=== PATIENT | male | born 1940 | race Caucasian/White ===

== ENCOUNTER 2019-01-05 06:00 | Outpatient (RCR) | payer MEDICARE, SELFPAY | END 2019-02-04 00:01 | LOC: SPT 06:00 | PROVIDERS: Family Provider Family Medicine; Visit Provider Orthopaedic Surgery | DX: Z47.89 Encounter for other orthopedic aftercare (principal) | CPT/HCPCS: 97110 ×9; 97112 ×4; 97116; 97140 ==

== ENCOUNTER 2019-02-07 13:03 | Outpatient (RCR) | payer MEDICARE, SELFPAY | END 2019-03-07 23:59 | disposition home or self-care (01) | LOC: SPT 13:03 | PROVIDERS: Family Provider Family Medicine; PCP Family Medicine; Visit Provider Orthopaedic Surgery | DX: M89.8X5 Other specified disorders of bone, thigh (principal) | CPT/HCPCS: 97110; 97112; 97116 ==

== ENCOUNTER 2019-02-12 13:28 | Outpatient (CLI) | payer MEDICARE, SELFPAY ==
--- NOTE | 2019-02-12 13:38 | MR_ITS ---
WS: [id number] MRI RIGHT SHOULDER NONCONTRAST TECHNIQUE: Sagittal T2, coronal T1, T2 and proton density imaging. Axial gradient PDE imaging. CLINICAL INFORMATION: CHRONIC RT SHOULDER PAIN COMPARISON: None. FINDINGS: Moderate degenerative arthritis at the AC joint with mild downsloping of the acromion. Slight subacro mial spurring. Trace subacromial/subdeltoid fluid. Slight impingement on the distal supraspinatus wit h tendinopathy in the supraspinatus. Intrasubstance tear involving the distal supraspinatus. Small un dersurface tear at the insertion. No tendon retraction. Infraspinatus is intact. Normal teres minor. Chronic atrophy of the subscapularis muscle belly with p artial intrasubstance tear and tendinopathy involving the subscapularis tendon. Biceps tendon is not visualized in the bicipital groove proximally. Presumed chronic tear of the long head of the biceps t endon with atrophy. Long head of biceps is not visualized at the biceps labral anchor. Small effusion subcoracoid bursa. MR/MR shoulder RT wo con* [id number] IMPRESSION: 1. Partial intrasubstance tear involving the distal supraspinatus with chronic thinning and tendinopathy. Small undersurface tear at the supraspinatus insert ion. 2. Infraspinatus and teres minor are normal. 3. Chronic appearing atrophy involving subscapularis muscle belly with thinnin g and partial intrasubstance tear of the distal tendon. 4. Presumed chronic tear involving the long head of the biceps tendon which is absent in the bicipital groove proximally and biceps labral junction. 5. Moderate degenerative arthritis at the AC joint with mild downsloping of th e acromion. Small amount of subacromial/subdeltoid fluid.
== END 2019-02-12 13:29 | disposition home or self-care (01) ==
LOC: RADSHAW 13:36
PROVIDERS: Family Provider Family Medicine; PCP Family Medicine; Visit Provider Anesthesiology
DX: S46.111A Strain of muscle, fascia and tendon of long head of biceps, right arm, initial encounter (principal); X58.XXXA Exposure to other specified factors, initial encounter; M25.511 Pain in right shoulder; M19.011 Primary osteoarthritis, right shoulder
CPT/HCPCS: 73221

== ENCOUNTER 2019-02-14 06:00 | Outpatient (RCR) | payer MEDICARE, SELFPAY | END 2019-03-07 23:59 | disposition home or self-care (01) | LOC: SPT 06:00 | PROVIDERS: Family Provider Family Medicine; PCP Family Medicine; Referring Provider Family Medicine; Visit Provider Family Medicine | DX: G89.29 Other chronic pain (principal); M25.512 Pain in left shoulder; M25.511 Pain in right shoulder | CPT/HCPCS: 97110; 97161 ==

== ENCOUNTER 2019-03-08 06:00 | Outpatient (RCR) | payer MEDICARE, SELFPAY | END 2019-04-05 23:59 | disposition home or self-care (01) | LOC: SPT 06:00 | PROVIDERS: Family Provider Family Medicine; PCP Family Medicine; Visit Provider Orthopaedic Surgery | DX: Z47.89 Encounter for other orthopedic aftercare (principal); Z98.890 Other specified postprocedural states | CPT/HCPCS: 97110; 97116; 97164 ==

== ENCOUNTER 2019-03-09 06:00 | Outpatient (RCR) | payer MEDICARE, SELFPAY | END 2019-04-05 23:59 | disposition home or self-care (01) | LOC: SPT 06:00 | PROVIDERS: Family Provider Family Medicine; PCP Family Medicine; Referring Provider Family Medicine; Visit Provider Family Medicine | DX: G89.29 Other chronic pain (principal); M25.512 Pain in left shoulder | CPT/HCPCS: 97110 ==

== ENCOUNTER 2019-03-12 16:14 | Outpatient (CLI) | payer MEDICARE, SELFPAY ==
--- NOTE | 2019-03-12 | XR_ITS ---
WS: [id number] CHEST 2 VIEWS HISTORY: HEMOPTYSIS COMPARISON: 07/06/2006 Lungs: Mild flattening of the hemidiaphragms. No pneumonia. Normal vasculature. Cardiac size: Normal. Mediastinum/Aorta: Mild atherosclerosis aorta. Bones: Prior anterior cervical fusion. Prior fusion hardware in the lumbar spine. XR/XR chest 2V* [id number] IMPRESSION: 1. No pneumonia. 2. Mild atherosclerosis aorta.
== END 2019-03-12 16:15 | disposition home or self-care (01) ==
LOC: RAD 16:17
PROVIDERS: Family Provider Family Medicine; PCP Family Medicine; Visit Provider Family Medicine
DX: R04.2 Hemoptysis (principal); I70.0 Atherosclerosis of aorta
CPT/HCPCS: 71046

== ENCOUNTER → 2019-03-14 15:13 | Outpatient (BNVA) | payer MEDICARE, SELFPAY | PROVIDERS: Family Provider Family Medicine; PCP Family Medicine; Visit Provider Anesthesiology | DX: G89.29 Other chronic pain (principal); M54.5 Low back pain; M79.652 Pain in left thigh; M25.511 Pain in right shoulder; M25.512 Pain in left shoulder; Z79.891 Long term (current) use of opiate analgesic | CPT/HCPCS: 99214 ==

== ENCOUNTER 2019-04-06 06:00 | Outpatient (RCR) | payer MEDICARE, SELFPAY | END 2019-05-06 23:59 | disposition home or self-care (01) | LOC: SPT 06:00 | PROVIDERS: Family Provider Family Medicine; PCP Family Medicine; Referring Provider Family Medicine; Visit Provider Family Medicine | DX: G89.29 Other chronic pain (principal); M25.511 Pain in right shoulder | CPT/HCPCS: 97110 ==

== ENCOUNTER 2019-04-06 06:00 | Outpatient (RCR) | payer MEDICARE, SELFPAY | END 2019-05-06 23:59 | disposition home or self-care (01) | LOC: SPT 06:00 | PROVIDERS: Family Provider Family Medicine; PCP Family Medicine; Visit Provider Orthopaedic Surgery | DX: G89.29 Other chronic pain (principal); M25.511 Pain in right shoulder | CPT/HCPCS: 97110; 97116 ==

== ENCOUNTER 2019-04-07 16:52 | Outpatient (CLI) | payer MEDICARE, SELFPAY ==
--- NOTE | 2019-04-07 17:31 | XR_ITS ---
WS: [id number] XR cervical spine 3V* [id number] REASON FOR EXAM: NECK PAIIN FINDINGS: Degenerated changes of the joints of Luschka. Anterolisthesis C4 on C5. There is degenerate disc changes C5-6, C6-7. There is a large spur off the C5 vertebra posteriorly. C5-C6-C7 now shows an anterior plate stabilizing the neck. There is advanced disc changes now seen at the C3-C4 disc space. XR/XR cervical spine 3V* [id number] IMPRESSION: Anterior fusion C5-C6-C7 appears to be stable. There is stenosis and disc changes C3-4 progressive since the previous exam of March 04, 2004.
== END 2019-04-07 16:53 | disposition home or self-care (01) ==
LOC: RAD 16:56
PROVIDERS: Family Provider Family Medicine; PCP Family Medicine; Visit Provider Family Medicine
DX: M48.02 Spinal stenosis, cervical region (principal); M54.2 Cervicalgia; G89.29 Other chronic pain; Z98.1 Arthrodesis status
CPT/HCPCS: 72040

== ENCOUNTER 2019-05-07 06:00 | Outpatient (RCR) | payer MEDICARE, SELFPAY | END 2019-06-05 23:59 | disposition home or self-care (01) | LOC: SPT 06:00 | PROVIDERS: Family Provider Family Medicine; PCP Family Medicine; Referring Provider Family Medicine; Visit Provider Family Medicine | DX: G89.29 Other chronic pain (principal); M25.511 Pain in right shoulder | CPT/HCPCS: 97110 ==

== ENCOUNTER 2019-06-06 06:00 | Outpatient (RCR) | payer MEDICARE, SELFPAY | END 2019-07-06 23:59 | disposition home or self-care (01) | LOC: SPT 06:00 | PROVIDERS: PCP Family Medicine; Referring Provider Family Medicine; Visit Provider Family Medicine | DX: G89.29 Other chronic pain (principal); M25.511 Pain in right shoulder | CPT/HCPCS: 97110 ==

== ENCOUNTER → 2019-07-16 13:29 | Outpatient (BNVA) | payer MEDICARE, SELFPAY | PROVIDERS: PCP Family Medicine; Visit Provider Anesthesiology | DX: G89.29 Other chronic pain (principal); M54.42 Lumbago with sciatica, left side; M25.512 Pain in left shoulder; Z79.891 Long term (current) use of opiate analgesic | CPT/HCPCS: 99214 ==

== ENCOUNTER → 2019-08-04 10:40 | Outpatient (BNVA) | payer MEDICARE, SELFPAY | PROVIDERS: PCP Family Medicine; Visit Provider Urology | DX: N40.1 Benign prostatic hyperplasia with lower urinary tract symptoms (principal); N52.1 Erectile dysfunction due to diseases classified elsewhere | CPT/HCPCS: 81001 ==

== ENCOUNTER → 2019-09-11 08:24 | Outpatient (BNVA) | payer MEDICARE, SELFPAY | PROVIDERS: PCP Family Medicine; Visit Provider Anesthesiology | DX: G89.29 Other chronic pain (principal); M54.42 Lumbago with sciatica, left side; M25.512 Pain in left shoulder; M25.511 Pain in right shoulder; Z79.891 Long term (current) use of opiate analgesic | CPT/HCPCS: 99214 ==

== ENCOUNTER → 2019-10-02 09:54 | Outpatient (BNVA) | payer MEDICARE, SELFPAY | PROVIDERS: PCP Family Medicine; Visit Provider Anesthesiology Pain Medicine | DX: G89.29 Other chronic pain (principal); M54.5 Low back pain; M54.12 Radiculopathy, cervical region; M50.90 Cervical disc disorder, unspecified, unspecified cervical region; M25.512 Pain in left shoulder; M47.812 Spondylosis without myelopathy or radiculopathy, cervical region; M25.511 Pain in right shoulder; M96.1 Postlaminectomy syndrome, not elsewhere classified; Z79.891 Long term (current) use of opiate analgesic; Z98.1 Arthrodesis status | CPT/HCPCS: 99205; 99215 ==

== ENCOUNTER → 2019-10-16 13:04 | Outpatient (BNVA) | payer MEDICARE, SELFPAY | PROVIDERS: PCP Family Medicine; Visit Provider Anesthesiology Pain Medicine | DX: G89.29 Other chronic pain (principal); M54.5 Low back pain; M50.90 Cervical disc disorder, unspecified, unspecified cervical region; M47.812 Spondylosis without myelopathy or radiculopathy, cervical region; M54.12 Radiculopathy, cervical region; M25.511 Pain in right shoulder; M25.512 Pain in left shoulder; M96.1 Postlaminectomy syndrome, not elsewhere classified | CPT/HCPCS: 99213; 99214 ==

== ENCOUNTER 2019-10-23 06:00 | Outpatient (RCR) | payer MEDICARE, SELFPAY | END 2019-11-05 23:59 | disposition home or self-care (01) | LOC: SPT 06:00 | PROVIDERS: PCP Family Medicine; Referring Provider Student in an Organized Health Care Education/Training Program; Visit Provider Student in an Organized Health Care Education/Training Program | DX: M75.101 Unspecified rotator cuff tear or rupture of right shoulder, not specified as traumatic (principal); M75.102 Unspecified rotator cuff tear or rupture of left shoulder, not specified as traumatic | CPT/HCPCS: 97161 ==

== ENCOUNTER 2019-10-27 06:00 | Outpatient (RCR) | payer MEDICARE, SELFPAY | END 2019-11-05 23:59 | disposition home or self-care (01) | LOC: SPT 06:00 | PROVIDERS: PCP Family Medicine; Referring Provider Registered Nurse; Visit Provider Registered Nurse | DX: G89.29 Other chronic pain (principal); M54.2 Cervicalgia | CPT/HCPCS: 97110; 97162 ==

== ENCOUNTER 2019-10-28 07:45 | Outpatient (CLI) | payer SELFPAY ==
--- NOTE | 2019-10-28 07:57 | MR_ITS ---
WS: [id number] MRI CERVICAL SPINE with and without contrast. HISTORY: CERVICAL RADICULAR PAIN Multiplanar, multisequence imaging is performed of the cervical spine with and without contrast. COMPARISON: 02/12/2006. Straightening of the normal cervical lordosis. Prior anterior cervical fusion from C5 through C7. Com plete bony fusion across the C5-6 and C6-7 disc spaces. No fractures. No edema. 2 mm retrolisthesis of C3. 2 mm anterolisthesis of C7. There is disc desiccation with osteophytic rid ging most significant at C3-4 and C4-5 and T2-3. Mild progression of degenerative changes since the p rior study. Anterior cervical fusion is new. Signal within the cord is normal. Craniocervical junction is intact. C2-C3: Normal. C3-C4: Osteophytic ridging and annular disc bulging and facet arthritis. Moderate central and bilater al foraminal stenosis. C4-C5: Diffuse osteophytic ridging, C4 anterolisthesis disc bulging. Resulting in severe central and bilateral foraminal stenosis. C5-C6: Osteophyte and hypertrophic bone formation extending into the RIGHT foramen causing moderate R IGHT foraminal stenosis. C6-C7: Mild osteophytic ridging with mild bilateral foraminal narrowing. C7-T1: No significant stenosis. Mild facet joint hypertrophy with only minimal bilateral foraminal na rrowing. No discitis or osteomyelitis. No facet joint enhancement. MR/MR cervical spine wo/w [id number] IMPRESSION: 1. Prior cervical fusion from C5 to C7. 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 2. No acute fracture. 3. Moderate multilevel spondylitic changes. 4. Severe central and bilateral foraminal stenosis at C4-5 and moderate at C3- 4. 5. No discitis or osteomyelitis.
[2019-10-28 08:44] LABS: Blood Urea Nitrogen 26 mg/dL (8-23)
== END 2019-10-28 07:46 | disposition home or self-care (01) ==
PROVIDERS: PCP Family Medicine; Visit Provider Anesthesiology Pain Medicine
DX: M54.12 Radiculopathy, cervical region (principal); Z98.1 Arthrodesis status; M43.22 Fusion of spine, cervical region; M48.02 Spinal stenosis, cervical region
CPT/HCPCS: 72156; 82565; 84520; A9579

== ENCOUNTER → 2019-11-04 14:05 | Outpatient (BNVA) | payer MEDICARE, SELFPAY | PROVIDERS: PCP Family Medicine; Visit Provider Anesthesiology Pain Medicine | DX: G89.29 Other chronic pain (principal); M25.511 Pain in right shoulder; M25.512 Pain in left shoulder; M54.16 Radiculopathy, lumbar region; M50.90 Cervical disc disorder, unspecified, unspecified cervical region; M47.812 Spondylosis without myelopathy or radiculopathy, cervical region; M54.12 Radiculopathy, cervical region; M96.1 Postlaminectomy syndrome, not elsewhere classified; Z98.1 Arthrodesis status | CPT/HCPCS: 20610; J1030; J3490 ==

== ENCOUNTER 2019-11-06 06:00 | Outpatient (RCR) | payer MEDICARE, SELFPAY | END 2019-12-06 23:59 | disposition home or self-care (01) | LOC: SPT 06:00 | PROVIDERS: PCP Family Medicine; Referring Provider Student in an Organized Health Care Education/Training Program; Visit Provider Student in an Organized Health Care Education/Training Program | DX: M54.2 Cervicalgia (principal); G89.29 Other chronic pain; Z98.1 Arthrodesis status | CPT/HCPCS: 97110 ==

== ENCOUNTER 2019-11-12 09:19 | Outpatient (CLI) | payer MEDICARE, SELFPAY ==
--- NOTE | 2019-11-12 09:30 | MR_ITS ---
WS: [id number] MRI LUMBAR SPINE NONCONTRAST TECHNIQUE: Sagittal T1, T2 and STIR imaging. Axial T1 and T2 imaging. CLINICAL INFORMATION: M54.16 Radiculopathy, lumbar region COMPARISON: MRI 1 16,018 FINDINGS: Mild lumbar curve. No acute compression. Slight retrolisthesis L2 on L3. Pedicle screw fixation L2-L5 . Small disc bulges in the lower thoracic spine T10-T11 and T11-T12. Moderate bilateral T10-11 forami nal narrowing. Moderate left T11-12 foraminal narrowing. Pedicle screw fixation L2-L5 with anterior fusion. Decompressive laminectomy defects at these levels. No recurrent central canal stenosis at these levels. Interbody fusion L3-4 and L4-L5. Disc space fabrice rowing worse at L2-3. This is slightly progressed compared to previous. Slight retrolisthesis L2 on L 3. L1-L2: Mild disc bulging with slight effacement of ventral thecal sac. Mild central canal stenosis. I mpingement subarticular recess bilaterally. Moderate left and mild right foraminal narrowing. Moderat e facet arthropathy. L2-L3: Slight retrolisthesis. Laminectomy defects. Mild right to left narrowing of the thecal sac wit h facet arthropathy and ligament flavum hypertrophy. Mild bilateral foraminal narrowing. L3-L4: Prior postoperative changes pedicle screw fixation. Laminectomy defects. Spinal canal and fora men are patent. L4-L5: Postoperative changes pedicle screw fixation with anterior fusion and interbody fusion. Shaun ctomy defects. Spinal canal and foramen are patent. L5-S1: Pedicle screw fixation. Disc osteophytic ridging with slight effacement of ventral thecal sac and slight contact of the traversing S1 nerve roots. Moderate right and mild left foraminal narrowing . Moderate facet arthropathy. Small bilateral renal cysts. Postoperative changes anterior cervical fusion C5-C7. Visualized pelvic bony structures: Normal. Paravertebral soft tissues: Normal. MR/MR lumbar spine wo con* [id number] IMPRESSION: 1. Mild lumbar curve. No acute compression. 2. Prior postoperative changes pedicle screw fixation L2-L5 with laminectomy d efects. Interbody fusion L3-L4 and L4-L5 with anterior fusion L3-L4. 3. Mild central canal stenosis L1-2 due to mild disc bulging with slight retro listhesis. Mild facet arthropathy ligament flavum hypertrophy at this level. Sl ight impingement traversing L2 nerve roots bilaterally. Moderate left L1-2 fora bee narrowing. 4. Mild right to left narrowing of the thecal sac L2-3 due to facet arthropath y and ligament flavum hypertrophy. 5. Small central disc protrusion L5-S1 slightly contacts the traversing S1 ner ve roots. Moderate right L5-S1 foraminal narrowing with impingement on the exit ing right L5 nerve root. 6. Central disc protrusions T10-T11 and T11-T12. Moderate bilateral T10-11 and left T11-T12 foraminal narrowing.
== END 2019-11-12 09:20 | disposition home or self-care (01) ==
PROVIDERS: PCP Family Medicine; Visit Provider Anesthesiology Pain Medicine
DX: M54.16 Radiculopathy, lumbar region (principal); M48.061 Spinal stenosis, lumbar region without neurogenic claudication; M51.27 Other intervertebral disc displacement, lumbosacral region; M51.24 Other intervertebral disc displacement, thoracic region; M47.816 Spondylosis without myelopathy or radiculopathy, lumbar region; M54.12 Radiculopathy, cervical region
CPT/HCPCS: 62321; 72148; J1100

== ENCOUNTER 2019-11-20 09:50 | Outpatient (RCR) | payer MEDICARE, SELFPAY | END 2019-11-26 16:15 | disposition home or self-care (01) | LOC: SPT 09:50 | PROVIDERS: PCP Family Medicine; Referring Provider Registered Nurse; Visit Provider Registered Nurse | DX: M54.2 Cervicalgia (principal); G89.29 Other chronic pain; Z98.1 Arthrodesis status | CPT/HCPCS: 97110 ==

== ENCOUNTER → 2019-11-27 10:36 | Outpatient (BNVA) | payer MEDICARE, SELFPAY | PROVIDERS: PCP Family Medicine; Visit Provider Anesthesiology Pain Medicine | DX: G89.29 Other chronic pain (principal); M47.812 Spondylosis without myelopathy or radiculopathy, cervical region; M54.12 Radiculopathy, cervical region; M50.90 Cervical disc disorder, unspecified, unspecified cervical region; M25.511 Pain in right shoulder; M25.512 Pain in left shoulder; M54.5 Low back pain; M96.1 Postlaminectomy syndrome, not elsewhere classified; Z98.1 Arthrodesis status | CPT/HCPCS: 99214 ==

== ENCOUNTER → 2019-12-03 13:15 | Outpatient (BNVA) | payer MEDICARE, SELFPAY | PROVIDERS: PCP Family Medicine; Visit Provider Anesthesiology Pain Medicine | DX: M54.16 Radiculopathy, lumbar region (principal); G89.29 Other chronic pain | CPT/HCPCS: 64483; J1100; J3490 ==

== ENCOUNTER 2019-12-07 06:00 | Outpatient (RCR) | payer MEDICARE, SELFPAY | END 2019-12-08 23:59 | disposition home or self-care (01) | LOC: SPT 06:00 | PROVIDERS: PCP Family Medicine; Referring Provider Student in an Organized Health Care Education/Training Program; Visit Provider Student in an Organized Health Care Education/Training Program | DX: M54.2 Cervicalgia (principal); G89.29 Other chronic pain; Z98.1 Arthrodesis status | CPT/HCPCS: 97110 ==

== ENCOUNTER → 2019-12-18 11:01 | Outpatient (BNVA) | payer MEDICARE, SELFPAY | PROVIDERS: PCP Family Medicine; Visit Provider Anesthesiology Pain Medicine | DX: G89.29 Other chronic pain (principal); M50.90 Cervical disc disorder, unspecified, unspecified cervical region; M54.12 Radiculopathy, cervical region; M47.812 Spondylosis without myelopathy or radiculopathy, cervical region; M54.5 Low back pain; M25.511 Pain in right shoulder; M25.512 Pain in left shoulder; M96.1 Postlaminectomy syndrome, not elsewhere classified; Z98.1 Arthrodesis status | CPT/HCPCS: 99213 ==

== ENCOUNTER 2019-12-25 06:00 | Outpatient (RCR) | payer MEDICARE, SELFPAY | END 2020-01-05 23:59 | disposition home or self-care (01) | LOC: SPT 06:00 | PROVIDERS: PCP Family Medicine; Visit Provider Orthopaedic Surgery | DX: M75.101 Unspecified rotator cuff tear or rupture of right shoulder, not specified as traumatic (principal) | CPT/HCPCS: 97110; 97162 ==

== ENCOUNTER 2020-01-06 06:00 | Outpatient (RCR) | payer MEDICARE, SELFPAY | END 2020-02-05 23:59 | disposition home or self-care (01) | LOC: SPT 06:00 | PROVIDERS: PCP Family Medicine; Visit Provider Orthopaedic Surgery | DX: M75.101 Unspecified rotator cuff tear or rupture of right shoulder, not specified as traumatic (principal) | CPT/HCPCS: 97110 ==

== ENCOUNTER → 2020-02-12 11:04 | Outpatient (BNVA) | payer MEDICARE, SELFPAY | PROVIDERS: PCP Family Medicine; Visit Provider Anesthesiology Pain Medicine | DX: G89.29 Other chronic pain (principal); M79.18 Myalgia, other site; M54.5 Low back pain; J31.0 Chronic rhinitis; M50.90 Cervical disc disorder, unspecified, unspecified cervical region; M54.12 Radiculopathy, cervical region; M47.812 Spondylosis without myelopathy or radiculopathy, cervical region; M25.512 Pain in left shoulder; M25.511 Pain in right shoulder; M96.1 Postlaminectomy syndrome, not elsewhere classified; Z98.1 Arthrodesis status | CPT/HCPCS: 20553; 99214; J1030; J3490 ==

== ENCOUNTER 2020-02-19 14:58 | Emergency (ER) | payer MEDICARE, SELFPAY ==
[2020-02-19 15:09] VITALS: BP 164/62; PULSE 74; RESP 16; TEMP 35.9; O2SAT 93; BMI 25.0
--- NOTE | 2020-02-19 15:14 | CT_ITS ---
WS: [id number] CT HEAD TECHNIQUE: Noncontrast CT of the head obtained from the skullbase to the vertex. CLINICAL INFORMATION: fall, head injury, and on anticoagulation COMPARISON: None. DLP: 819.[address] scans at [facility] use at least one of these dose optimization techniques: automat ed exposure control; mA and/or kV adjustment per patient size (includes targeted exams where dose is matched to clinical indication); or iterative reconstruction. FINDINGS: No evidence of intracranial hemorrhage or mass effect. Ventricular system and basal cisterns are garcía nt. Mild small vessel changes with moderate parenchymal volume loss. Small chronic infarct left parie erickson lobe with encephalomalacia. This is unchanged since the MRI in 2018. No extra-axial fluid collect ions. No evidence of mass or mass effect. Normal españa-white differentiation. Paranasal sinuses and mastoid air cells are well aerated. .Normal visualized soft tissues. CT/CT head wo con* [id number] IMPRESSION: 1. No evidence of intracranial hemorrhage or mass effect. 2. Mild small vessel changes. Moderate parenchymal volume loss. 3. 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 4. No acute intracranial findings.
--- NOTE | 2020-02-19 15:14 | CT_ITS ---
WS: [id number] CT CERVICAL TRAUMA TECHNIQUE: Noncontrast CT of the cervical spine with coronal and sagittal reformatted images. CLINICAL INFORMATION: fall COMPARISON: None. DLP: 629.[address] scans at [facility] use at least one of these dose optimization techniques: automat ed exposure control; mA and/or kV adjustment per patient size (includes targeted exams where dose is matched to clinical indication); or iterative reconstruction. FINDINGS: Straightening of the normal cervical lordosis. Moderate spondylitic changes. Disc osteophyt e complex worse at C3-C4. Slight anterolisthesis C4 on C5. Postoperative changes anterior cervical fu lizzie and interbody fusion C5-C7. Normal C1-2 articulation. Normal dens. No evidence of acute fracture dislocation. Normal prevertebral soft tissues. Mastoids air cells are well aerated. CT/CT cervical spin wo con* [id number] IMPRESSION: 1. No evidence of acute fracture or dislocation. 2. Straightening of the normal cervical lordosis with prior postoperative vega ges anterior cervical fusion and interbody fusion C5-C7.
[2020-02-19 15:44] LABS: Basophils % 0.5 %; Eosinophils # 0.1 10^3/uL (0.0-0.8); Eosinophils % 1.4 %; Lymphocytes # 1.5 10^3/uL (0.8-4.8); Lymphocytes % 20.2 %; Mean Corpuscular Hemoglobin 31.3 pg (28.0-34.0); Mean Corpuscular Volume 101.2 fL (80-94); Mean Platelet Volume 9.8 fL (7.4-10.4); Monocytes # 0.7 10^3/uL (0.2-0.9); Monocytes % 9.7 %; Neutrophils # 4.97 10^3/uL (1.8-7.7); Neutrophils % 67.3 %; Nucleated Red Blood Cells % 0 %; Platelet Count 201 10^3/cmm (130-400); Red Blood Count 4.15 10^6/uL (4.1-5.3); Red Cell Distribution Width 13.6 % (12.1-15.1); White Blood Count 7.4 10^3/uL (4.0-10.0)
[2020-02-19 16:00] LABS: Alanine Aminotransferase 16 U/L (0-41); Alkaline Phosphatase 63 IU/L (40-130); Anion Gap 12.2 (5-19); Aspartate Amino Transferase 13 U/L (0-40); Blood Urea Nitrogen 20 mg/dL (8-23); Calcium 8.8 mg/dL (8.5-10.5); Carbon Dioxide 27 mmol/L (22-29); Chloride 102 mmol/L (98-107); Globulin 2.5 g/dL (1.3-4.6); Glucose 94 mg/dL (65-115); Osmolality Calculated 286 mOsm/kg (285-295); Potassium 4.2 mmol/L (3.5-5.1); Sodium 137 mmol/L (136-145); Total Bilirubin 0.3 mg/dL (0.15-1.2); Total Protein 6.5 g/dL (6.6-8.7)
[2020-02-19 16:09] LABS: INR 0.93 (0.8-1.2)
--- NOTE | 2020-02-19 17:30 | CTR_ITS ---
PROCEDURE INFORMATION: Exam: CT Abdomen And Pelvis Without Contrast Exam date and time: 02/19/2020 6:07 PM Age: 79 years old Clinical indication: Injury or trauma; Fall; Blunt; Generalized; Prior surgery; Surgery type: Gb, hip, back; Additional info: Fall, hip pain TECHNIQUE: Imaging protocol: Computed tomography of the abdomen and pelvis without contrast. Radiation optimization: All CT scans at this facility use at least one of these dose optimization techniques: automated exposure control; mA and/or kV adjustment per patient size (includes targeted exams where dose is matched to clinical indication); or iterative reconstruction. COMPARISON: No relevant prior studies available. RADIATION DOSE METRICS: Total DLP (mGy-cm): 571.97 FINDINGS: Lungs: There is subsegmental atelectasis in the lung bases. Liver: The liver is normal. Gallbladder and bile ducts: The gallbladder is normal. There is no biliary dilation. Pancreas: The pancreas is unremarkable. Spleen: The spleen is unremarkable. Adrenal glands: The adrenal glands are unremarkable. Kidneys and ureters: The kidneys are unremarkable. No hydronephrosis or stones. No ureteral dilation. Stomach and bowel: The stomach is decompressed, preventing meaningful evaluation of wall thickness. The small bowel is nondilated. The colon is unremarkable. Appendix: The appendix is normal. Intraperitoneal space: There is no free air or significant intraperitoneal free fluid. Vasculature: There is a filter in the inferior vena cava positioned from the level of the renal veins to the bifurcation. There is moderate aortic atherosclerotic disease. Lymph nodes: There is no lymphadenopathy in the retroperitoneum, mesentery, pelvis or inguinal regions. Urinary bladder: The urinary bladder is unremarkable. Reproductive: The prostate and seminal vesicles are unremarkable. Bones/joints: There is intact L2 through L5 posterolateral fusion. There is trace retrolisthesis of L1 on L2. No acute fracture. The bony pelvis is intact. The right hip is unremarkable. 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 There is marked thinning of the overlying medial wall of the acetabulum and a 3.2 cm diameter cystic lesion inferior to the acetabular cup. There is periosteal new bone formation along the proximal left femoral intertrochanteric and subtrochanteric region. There is a 3.5 cm cystic lesion in the greater trochanter. No acute fracture. Soft tissues: The there is marked atrophy of the left iliacus and psoas muscles. There is moderate asymmetric atrophy of the left gluteal muscles. The abdominal wall is intact. CT/CT abdomen pelvis wo con [id number] IMPRESSION: 1. No sign of significant traumatic injury in the abdomen or pelvis. 2. 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 There is no acute fracture. 3. Incidental findings above. Radiation Dose CTDIVOL = (mGy): DLP = 571.97 (mGy-cm)
--- NOTE | 2020-02-19 17:30 | CTR_ITS ---
PROCEDURE INFORMATION: Exam: CT Lumbar Spine Without Contrast Exam date and time: 02/19/2020 6:07 PM Age: 79 years old Clinical indication: Injury or trauma; Fall; Blunt trauma (contusions or hematomas); Prior surgery TECHNIQUE: Imaging protocol: Computed tomography images of the lumbar spine without contrast. Radiation optimization: All CT scans at this facility use at least one of these dose optimization techniques: automated exposure control; mA and/or kV adjustment per patient size (includes targeted exams where dose is matched to clinical indication); or iterative reconstruction. COMPARISON: No relevant prior studies available. RADIATION DOSE METRICS: Total DLP (mGy-cm): 2118.46 FINDINGS: Vertebrae: There is intact posterolateral and interbody fusion from L2 through L5. Hardware is intact. There is no sign of loosening. There is grade 1 retrolisthesis of L1 on L2. Bilateral laminectomy at L4. Left laminectomy at L2. Discs/Spinal canal/Neural foramina: There is marked disc space narrowing and small vertebral osteophytes at L5-S1. There is moderate disc space narrowing at T12-L1 and L1-L2. Moderate spinal canal stenosis is suspected at L1-L2 and L2-L3 although the evaluation is limited by streak artifact. Other bones/joints: The visible portion of the pelvis and sacrum is intact. Soft tissues: Paraspinal soft tissues are unremarkable. Visible intra-abdominal soft tissues are unremarkable. CT/CT lumbar spine wo con* [id number] IMPRESSION: 1. No acute findings. No fracture. 2. 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 Radiation Dose CTDIVOL = (mGy): DLP = 2118.46 (mGy-cm)
[2020-02-19] MEDS: morphine 4 mg/mL SDV 1 mL IM (17:40)
[2020-02-19 17:43] VITALS: BP 140/59
--- NOTE | 2020-02-19 17:49 | ED_ITS ---
HPI - Head Injury General: Chief complaint: Head Injury Stated complaint: FALL, HEAD INJURY Time Seen by Provider: 02/19/20 15:14 Source: patient Mode of arrival: ambulatory Limitations: no limitations History of Present Illness: HPI Narrative: Patient is an 79-year-old gentleman who tripped on the curb while walking today and fell face first on the curb. He sustained a laceration to his left eyebrow area which he said bled a lot. He was able to get the bleeding to stop with pressure. He states that he is on anticoagulation although he is not certain which one it is. He did have some loss of consciousness that he thinks it lasted about 30 seconds. He is back to his baseline. He complains of low back pain as well as pain in his gluteal region when walking. Complaint: head injury and fall Onset (ago): hour(s) (1) Place: outdoors Loss of Consciousness: yes and second(s) (30) Location of injury: frontal Severity: mild Quality: dull Radiation: none Other Injuries: none Associated symptoms: Deny nausea, neck pain or vomiting Review of Systems General: Reports: 10 or more systems reviewed and unremarkable except in HPI and below Const: Denies: fever(s), chills or body aches Eyes: Denies: change in vision or blurry vision ENMT: Denies: throat pain, enlarged tonsils, odynophagia, hoarseness, mouth pain or swelling of lips/tongue Card: Denies: palpitations, irregular heart rhythm, edema or swelling of feet/ankles Resp: Denies: dyspnea, productive cough or non-productive cough GI: Denies: abdominal pain, nausea or vomiting : Denies: flank pain, dysuria, urinary frequency, urinary urgency or urinary hesitancy Musc: Reports: back pain; Denies: neck pain or extremity swelling Skin/Breast: Reports: other (laceration); Denies: rash, pruritus or erythema Neuro: Denies: headache(s), numbness in extremities or weakness in extremities Endo: Denies: polyuria, polydipsia or tired all the time [facility] ED PFSH: Medical History (Reviewed 02/19/20 @ 19:50 by Norberto Silverman MD, [facility]) BPH NOS w ur obs/LUTS Chronic left shoulder pain Chronic low back pain Chronic right shoulder pain Encounter for long-term use of opiate analgesic Erectile dysfunction due to diseases classified elsewhere Hip replacement planned 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 Mother , at age 54 Stroke Other CAD (coronary artery disease) Cancer Lung disease Social History (Reviewed 02/19/20 @ 19:50 by Norberto Silverman MD, [facility]) Smoking and tobacco status: never smoked Alcohol intake: never Marital status: Current occupational status: retired Physical Exam Const: COMMON NORMALS: no acute distress, average body habitus, patient oriented x3, no limitations, healthy appearing, alert and well nourished HENMT: COMMON NORMALS: normocephalic and moist oral mucous membranes HEAD & SCALP: normocephalic and laceration FACE & SINUS: laceration (not bleeding) left above eyebrow Facial laceration size: 5 cm Eye: COMMON NORMALS: Equal, round and reactive pupils present, EOMs intact bilaterally, conjunctivae normal and no scleral icterus CONJUNCTIVA: Yes conjunctivae normal PUPIL: Yes Equal, round and reactive pupils present Neck/C-Spine: COMMON NORMALS: full ROM, supple, no meningeal signs, no JVD and No carotid bruits Chest: COMMONS NORMALS: normal inspection of the chest and normal palpation of entire chest wall Resp: COMMON NORMALS: normal respiratory effort, No retractions, No use of accessory muscles, clear to auscultation bilaterally and percussion normal AUSCULTATION: clear to auscultation bilaterally PERCUSSION: percussion normal Cardio: COMMON NORMALS: no JVD, regular rate, regular rhythm, S1 normal heart sound present, S2 normal heart sound present, No gallops present (Cardio), No clicks present (Cardio), No murmurs present (Cardio), No rub (Cardio) and Peripheral pulses 2+ throughout RATE: regular rate RHYTHM: regular rhythm HEART SOUNDS: S1 normal heart sound present and S2 normal heart sound present PERIPHERAL PULSES: Peripheral pulses 2+ throughout GI: COMMON NORMALS: Normal to inspection, nondistended, normoactive bowel sounds present, Soft to palpation, non-tender, No hepatosplenomegaly present, no masses and no bruits PALPATION: Yes Soft to palpation and Yes No hepatosplenomegaly present Back/Pelvis: LUMBAR SPINE/LOWER BACK: No lumbar spinal tenderness and Yes paraspinal muscle tenderness Extremity: COMMON NORMALS: normal to inspection, full ROM, capillary refill normal, no calf tenderness and no pedal edema Neuro: COMMON NORMALS: patient oriented x3 SENSORIUM/ORIENTATION: Yes alert MENINGEAL SIGNS: Yes no meningeal signs Skin: COMMON NORMALS: no rashes or lesions noted, no wounds, turgor normal, no jaundice, no petechiae and no mottling GENERAL SKIN EXAM: no rashes or lesions noted and turgor normal Course Reevaluation(s): Reevaluation #1: Discussed his lab and imaging findings with him. Negative for acute findings. We will discharge him home on conservative measures. Time: 19:20 Vital Signs: Vital signs: Vital Signs Temperature 96.6 F L 02/19/20 15:09 Pulse Rate 74 02/19/20 15:09 Respiratory Rate 16 02/19/20 15:09 Blood Pressure 140/59 02/19/20 17:43 Pulse Oximetry 93 02/19/20 15:09 MDM - Head Injury MDM Narrative: Medical decision making narrative: 79-year-old male who tripped and fell and sustained a mild closed head injury. Evaluation in the emergency department was negative for acute findings including a negative head CT, C-spine CT, lumbar and abdominal CT. Lab work was unremarkable. He is discharged home on conservative measures. Head injury instructions given to the patient and his Medical Records: Attestation: I reviewed the patient's medical records. Lab Data: Attestation: I reviewed the patient's lab results. Labs: Lab Results 02/19/20 02/19/20 02/19/20 Range/Units 15:32 15:32 15:32 WBC 7.4 (4.0-10.0) 10^3/ uL RBC 4.15 (4.1-5.3) 10^6/u L Hgb 13.0 (11.7-16.6) g/dL Hct 42.0 (42.0-52.0) % MCV 101.2 H (80-94) fL MCH 31.3 (28.0-34.0) pg MCHC 31.0 (30.0-36.0) g/dL RDW 13.6 (12.1-15.1) % Plt Count 201 (130-400) 10^3/c mm MPV 9.8 (7.4-10.4) fL Neut % (Auto) 67.3 % Lymph % (Auto) 20.2 % [place] % (Auto) 9.7 % Eos % (Auto) 1.4 % Baso % (Auto) 0.5 % Neut # (Auto) 4.97 (1.8-7.7) 10^3/u L Lymph # (Auto) 1.5 (0.8-4.8) 10^3/u L [place] # (Auto) 0.7 (0.2-0.9) 10^3/u L Eos # (Auto) 0.1 (0.0-0.8) 10^3/u L Baso # (Auto) 0.0 (0.0-0.1) 10^3/u L Nucleated RBC % (a uto) 0 % Nucleated RBCs # 0.0 /100WBC PT 12.70 (12.1-14.9) SECO NDS INR 0.93 (0.8-1.2) Sodium 137 (136-145) mmol/L Potassium 4.2 (3.5-5.1) mmol/L Chloride 102 (98-107) mmol/L Carbon Dioxide 27 (22-29) mmol/L Anion Gap 12.2 (5-19) BUN 20 (8-23) mg/dL Creatinine 0.7 (0.7-1.2) mg/dL GFR Calculation Not Reportable Glucose 94 (65-115) mg/dL Calculated Osmolal ity 286 (285-295) mOsm/k g Calcium 8.8 (8.5-10.5) mg/dL Total Bilirubin 0.3 (0.15-1.2) mg/dL AST 13 (0-40) U/L ALT 16 (0-41) U/L Alkaline Phosphata se 63 (40-130) IU/L Total Protein 6.5 L (6.6-8.7) g/dL Albumin 4.0 (3.5-5.2) g/dL Globulin 2.5 (1.3-4.6) g/dL Urine Color (Yellow) Urine Appearance (CLEAR) Urine pH (5-7) Ur Specific Gravit y (1.005-1.030) Urine Protein (Negative) Urine Glucose (UA) (Normal) Urine Ketones (Negative) Urine Blood (Negative) Urine Nitrate (Negative) Urine Bilirubin (Negative) Urine Urobilinogen (Negative) mg/dL Ur Leukocyte Martha ase (Negative) Urine RBC (0-2) /hpf Urine WBC (0-5) /hpf Ur Squamous Epith Cells (0-5) /hpf Amorphous Sediment /hpf Urine Bacteria (NONE) /hpf 02/19/20 Range/Units 17:45 WBC (4.0-10.0) 10^3/ uL RBC (4.1-5.3) 10^6/u L Hgb (11.7-16.6) g/dL Hct (42.0-52.0) % MCV (80-94) fL MCH (28.0-34.0) pg MCHC (30.0-36.0) g/dL RDW (12.1-15.1) % Plt Count (130-400) 10^3/c mm MPV (7.4-10.4) fL Neut % (Auto) % Lymph % (Auto) % [place] % (Auto) % Eos % (Auto) % Baso % (Auto) % Neut # (Auto) (1.8-7.7) 10^3/u L Lymph # (Auto) (0.8-4.8) 10^3/u L [place] # (Auto) (0.2-0.9) 10^3/u L Eos # (Auto) (0.0-0.8) 10^3/u L Baso # (Auto) (0.0-0.1) 10^3/u L Nucleated RBC % (a uto) % Nucleated RBCs # /100WBC PT (12.1-14.9) SECO NDS INR (0.8-1.2) Sodium (136-145) mmol/L Potassium (3.5-5.1) mmol/L Chloride (98-107) mmol/L Carbon Dioxide (22-29) mmol/L Anion Gap (5-19) BUN (8-23) mg/dL Creatinine (0.7-1.2) mg/dL GFR Calculation Glucose (65-115) mg/dL Calculated Osmolal ity (285-295) mOsm/k g Calcium (8.5-10.5) mg/dL Total Bilirubin (0.15-1.2) mg/dL AST (0-40) U/L ALT (0-41) U/L Alkaline Phosphata se (40-130) IU/L Total Protein (6.6-8.7) g/dL Albumin (3.5-5.2) g/dL Globulin (1.3-4.6) g/dL Urine Color Yellow (Yellow) Urine Appearance Cloudy (CLEAR) Urine pH 6 (5-7) Ur Specific Gravit y 1.015 (1.005-1.030) Urine Protein Neg (Negative) Urine Glucose (UA) Norm (Normal) Urine Ketones Negative (Negative) Urine Blood Neg (Negative) Urine Nitrate Negative (Negative) Urine Bilirubin Neg (Negative) Urine Urobilinogen Norm (Negative) mg/dL Ur Leukocyte Martha ase Negative (Negative) Urine RBC 5-10 H (0-2) /hpf Urine WBC 10-15 H (0-5) /hpf Ur Squamous Epith Cells 10-15 H (0-5) /hpf Amorphous Sediment 2+ /hpf Urine Bacteria 1+ H (NONE) /hpf Imaging Data^: CT Abd/Pel: Radiologist's impression: [place] [address] CT Scan Report Signed Patient: Bear Carballo #: [id number] : 1940Acct#:[id number] Age/Sex: 79 / MADM Date: 02/19/20 Loc: ERRoom/Bed: Attending Dr: Ordering Provider/Ordering MD: Norberto Silverman MD, [facility] Date of Service: 02/19/20 Procedure(s): CT abdomen pelvis wo con [id number] Accession Number(s): [id number] Report Number: [id number] PROCEDURE INFORMATION: Exam: CT Abdomen And Pelvis Without Contrast Exam date and time: 02/19/2020 6:07 PM Age: 79 years old Clinical indication: Injury or trauma; Fall; Blunt; Generalized; Prior surgery; Surgery type: Gb, hip, back; Additional info: Fall, hip pain TECHNIQUE: Imaging protocol: Computed tomography of the abdomen and pelvis without contrast. Radiation optimization: All CT scans at this facility use at least one of these dose optimization techniques: automated exposure control; mA and/or kV adjustment per patient size (includes targeted exams where dose is matched to clinical indication); or iterative reconstruction. COMPARISON: No relevant prior studies available. RADIATION DOSE METRICS: Total DLP (mGy-cm): 571.97 FINDINGS: Lungs: There is subsegmental atelectasis in the lung bases. Liver: The liver is normal. Gallbladder and bile ducts: The gallbladder is normal. There is no biliary dilation. Pancreas: The pancreas is unremarkable. Spleen: The spleen is unremarkable. Adrenal glands: The adrenal glands are unremarkable. Kidneys and ureters: The kidneys are unremarkable. No hydronephrosis or stones. No ureteral dilation. Stomach and bowel: The stomach is decompressed, preventing meaningful evaluation of wall thickness. The small bowel is nondilated. The colon is unremarkable. Appendix: The appendix is normal. Intraperitoneal space: There is no free air or significant intraperitoneal free fluid. Vasculature: There is a filter in the inferior vena cava positioned from the level of the renal veins to the bifurcation. There is moderate aortic atherosclerotic disease. Lymph nodes: There is no lymphadenopathy in the retroperitoneum, mesentery, pelvis or inguinal regions. Urinary bladder: The urinary bladder is unremarkable. Reproductive: The prostate and seminal vesicles are unremarkable. Bones/joints: There is intact L2 through L5 posterolateral fusion. There is trace retrolisthesis of L1 on L2. No acute fracture. The bony pelvis is intact. The right hip is unremarkable. 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 There is marked thinning of the overlying medial wall of the acetabulum and a 3.2 cm diameter cystic lesion inferior to the acetabular cup. There is periosteal new bone formation along the proximal left femoral intertrochanteric and subtrochanteric region. There is a 3.5 cm cystic lesion in the greater trochanter. No acute fracture. Soft tissues: The there is marked atrophy of the left iliacus and psoas muscles. There is moderate asymmetric atrophy of the left gluteal muscles. The abdominal wall is intact. CT/CT abdomen pelvis wo con [id number] IMPRESSION: 1. No sign of significant traumatic injury in the abdomen or pelvis. 2. 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 There is no acute fracture. 3. Incidental findings above. Radiation Dose CTDIVOL = (mGy): DLP = 571.97 (mGy-cm) Dictated By:Mode Rocha MD Signed By:Mode Rocha Date/Time:02/19/201855 DD/ [address]: Radiologist's impression: [address] [place] [address] CT Scan Report Signed Patient: Bear Carballo #: [id number] : 1940Acct#:[id number] Age/Sex: 79 / MADM Date: 02/19/20 Loc: ERRoom/Bed: Attending Dr: Ordering Provider/Ordering MD: Norberto Silverman MD, [facility] Date of Service: 02/19/20 Procedure(s): CT cervical spin wo con* [id number] Accession Number(s): [id number] Report Number: [id number] WS: [id number] CT CERVICAL TRAUMA TECHNIQUE: Noncontrast CT of the cervical spine with coronal and sagittal reformatted images. CLINICAL INFORMATION: fall COMPARISON: None. DLP: 629.[address] scans at [facility] use at least one of these dose optimization techniques: automated exposure control; mA and/or kV adjustment per patient size (includes targeted exams where dose is matched to clinical indication); or iterative reconstruction. FINDINGS: Straightening of the normal cervical lordosis. Moderate spondylitic changes. Disc osteophyte complex worse at C3-C4. Slight anterolisthesis C4 on C5. Postoperative changes anterior cervical fusion and interbody fusion C5-C7. Normal C1-2 articulation. Normal dens. No evidence of acute fracture dislocation. Normal prevertebral soft tissues. Mastoids air cells are well aerated. CT/CT cervical spin wo con* [id number] IMPRESSION: 1. No evidence of acute fracture or dislocation. 2. Straightening of the normal cervical lordosis with prior postoperative changes anterior cervical fusion and interbody fusion C5-C7. Dictated By:Amadeo Riggins MD Signed By:Amadeo Riggins MDSigned Date/Time:02/19/201636 DD/ [address] [address] [address] Scan Report Signed Patient: Bear Carballo #: [id number] : 1940Acct#:[id number] Age/Sex: 79 / MADM Date: 02/19/20 Loc: ERRoom/Bed: Attending Dr: Ordering Provider/Ordering MD: Norberto Silverman MD, [facility] Date of Service: 02/19/20 Procedure(s): CT lumbar spine wo con* [id number] Accession Number(s): [id number] Report Number: [id number] PROCEDURE INFORMATION: Exam: CT Lumbar Spine Without Contrast Exam date and time: 02/19/2020 6:07 PM Age: 79 years old Clinical indication: Injury or trauma; Fall; Blunt trauma (contusions or hematomas); Prior surgery TECHNIQUE: Imaging protocol: Computed tomography images of the lumbar spine without contrast. Radiation optimization: All CT scans at this facility use at least one of these dose optimization techniques: automated exposure control; mA and/or kV adjustment per patient size (includes targeted exams where dose is matched to clinical indication); or iterative reconstruction. COMPARISON: No relevant prior studies available. RADIATION DOSE METRICS: Total DLP (mGy-cm): 2118.46 FINDINGS: Vertebrae: There is intact posterolateral and interbody fusion from L2 through L5. Hardware is intact. There is no sign of loosening. There is grade 1 retrolisthesis of L1 on L2. Bilateral laminectomy at L4. Left laminectomy at L2. Discs/Spinal canal/Neural foramina: There is marked disc space narrowing and small vertebral osteophytes at L5-S1. There is moderate disc space narrowing at T12-L1 and L1-L2. Moderate spinal canal stenosis is suspected at L1-L2 and L2-L3 although the evaluation is limited by streak artifact. Other bones/joints: The visible portion of the pelvis and sacrum is intact. Soft tissues: Paraspinal soft tissues are unremarkable. Visible intra-abdominal soft tissues are unremarkable. CT/CT lumbar spine wo con* [id number] IMPRESSION: 1. No acute findings. No fracture. 2. 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 Radiation Dose CTDIVOL = (mGy): DLP = 2118.46 (mGy-cm) Dictated By:Mode Rocha MD Signed By:Mode Rocha MDSigned Date/Time:02/19/201900 DD/ 99 CT Head: Radiologist's impression: [address] [place] [place] [address] CT Scan Report Signed Patient: Bear Carballo #: [id number] : 1940Acct#:[id number] Age/Sex: 79 / MADM Date: 02/19/20 Loc: ERRoom/Bed: Attending Dr: Ordering Provider/Ordering MD: Norberto Silverman MD, [facility] Date of Service: 02/19/20 Procedure(s): CT head wo con* [id number] Accession Number(s): [id number] Report Number: [id number] WS: [id number] CT HEAD TECHNIQUE: Noncontrast CT of the head obtained from the skullbase to the vertex. CLINICAL INFORMATION: fall, head injury, and on anticoagulation COMPARISON: None. DLP: 819.[address] scans at [facility] use at least one of these dose optimization techniques: automated exposure control; mA and/or kV adjustment per patient size (includes targeted exams where dose is matched to clinical indication); or iterative reconstruction. FINDINGS: No evidence of intracranial hemorrhage or mass effect. Ventricular system and basal cisterns are patent. Mild small vessel changes with moderate parenchymal volume loss. 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 This is unchanged since the MRI in 2018. No extra-axial fluid collections. No evidence of mass or mass effect. Normal españa-white differentiation. Paranasal sinuses and mastoid air cells are well aerated. .Normal visualized soft tissues. CT/CT head wo con* [id number] IMPRESSION: 1. No evidence of intracranial hemorrhage or mass effect. 2. Mild small vessel changes. Moderate parenchymal volume loss. 3. 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 4. No acute intracranial findings. Dictated By:Amadeo Riggins MD Signed By:Amadeo Riggins MDSigned Date/Time:02/19/20 163 DD/ 1626 Discharge Plan Discharge Patient Disposition: Home Clinical Impression: Fall (on)(from) sidewalk curb, initial encounter Closed head injury Qualifiers: Encounter type: initial encounter Qualified Code(s): S09.90XA - Unspecified injury of head, initial encounter Laceration of left eyebrow Qualifiers: Encounter type: initial encounter Qualified Code(s): S01.112A - Laceration without foreign body of left eyelid and periocular area, initial encounter Condition: Stable Prescriptions: Continued olopatadine [Pataday] 0.2 % drops 1 drop ophthalmic (eye) DAILY@0900 RF: 0 albuterol sulfate 90 mcg/actuation aerosol powdr breath activated 2 inh INHALATION Q6H PRN (Reason: Shortness Of Breath) RF: 0 oxycodone 15 mg tablet 15 mg PO QID PRN (Reason: pain) 30 Days Qty: 120 RF: 0 tamsulosin [Flomax] 0.4 mg capsule 0.4 mg PO DAILY@2100 RF: 0 sildenafil 50 mg tablet See Rx Instructions PO DAILY PRN (Reason: erectile disfunction) RF: 0 finasteride 5 mg tablet 5 mg PO DAILY@0900 RF: 0 allopurinol 300 mg tablet 300 mg PO DAILY@0900 RF: 0 Flovent Diskus 50 mcg/actuation blister with device 1 inh INHALATION BID RF: 0 lovastatin 20 mg tablet 20 mg PO DAILY@0900 RF: 0 omeprazole 20 mg tablet,delayed release (DR/EC) 20 mg PO DAILY@0900 RF: 0 multivitamin Tablet 1 tab PO DAILY@0900 RF: 0 cholecalciferol (vitamin D3) 1,250 mcg (50,000 unit) capsule 1,250 mcg PO DAILY@0900 RF: 0 ascorbate calcium (vitamin C) 500 mg tablet 500 mg PO DAILY@0900 RF: 0 aspirin [Adult Aspirin Regimen] 81 mg tablet,delayed release (DR/EC) 81 mg PO DAILY@0900 RF: 0 docusate sodium [Colace] 100 mg capsule 100 mg PO BID PRN (Reason: Constipation) RF: 0 diphenoxylate-atropine [Lomotil] 2.5-0.025 mg tablet 1 tab PO QID PRN (Reason: Diarrhea) RF: 0 garlic 1,000 mg capsule 2,000 mg PO DAILY@0900 RF: 0 lutein 20 mg capsule 20 mg PO DAILY@0900 RF: 0 melatonin 3 mg capsule 3 mg PO BEDTIME@2300 PRN (Reason: Insomnia) RF: 0 bevacizumab 25 mg/mL solution See Rx Instructions IV .COMPLEX RF: 0 alendronate [Fosamax] 70 mg tablet 70 mg PO Q7D RF: 0 vitamin B complex [B Complex-Vitamin B12] Tablet 1 tab PO DAILY@0900 RF: 0 cod liver oil Capsule 1 cap PO DAILY@0900 RF: 0 ICaps AREDS2 (copper citrate) 250 mg-200 unit -12.5 mg-1 mg tablet 1 tab PO BID@0900,2100 RF: 0 vitamin A 8,000 unit capsule 8,000 unit PO DAILY@0900 RF: 0 tramadol 50 mg tablet 50 mg PO QID PRN (Reason: pain) 30 Days Qty: 120 RF: 1 gabapentin 600 mg tablet 600 mg PO QID@,,17,21 RF: 0 Tylenol 325 mg Tablet 325 - 650 mg PO QID PRN (Reason: Pain) RF: 0 Discharge Orders: Discharge ED (Routine); Ordered 02/19/20 Ordered By: Norberto Silverman Referrals: Celeste Keane DO [Primary Care Provider] - 1-3 days Discharge Diet: Usual diet Discharge Activity: Increase activity as tolerated Patient Instructions: Minor Head Injury (ED), Skin Adhesive Care (ED), Fall Prevention (ED) Activity Restrictions/Additional Instructions: Return for any new or worsening symptoms. Follow-up with your primary care provider within 3 days. Observe him for the next 24 hours for signs of worsening head injury, these include headache, nonstop vomiting, unsteady gait, change in behavior, or any concerning signs. No strenuous activity for the next week. Your pain is going to get worse over the next 2 to 3 days before it starts to get better. Take some of your pain medicine for severe pain. Coding Level of Care Code ED Finish Saw Operator for Haily Canas
[2020-02-19 19:40] LABS: Add Urine Microscopic? YES; Amorphous Sediment Urine 2+ /hpf; Bacteria Urine 1+ /hpf; Bilirubin Urine Neg (Negative); Blood Urine Neg (Negative); Glucose Urine UA Norm (Normal); Ketones Urine Negative (Negative); Leukocyte Esterase Urine Negative (Negative); Nitrate Urine Negative (Negative); Protein Urine Neg (Negative); Specific Gravity, Urine 1.015 (1.005-1.030); Urine Appearance Cloudy (CLEAR); Urine Color Yellow (Yellow); Urobilinogen Urine Norm (Negative); pH Urine 6 (5-7)
== END 2020-02-19 19:45 | disposition home or self-care (01) ==
PROVIDERS: Emergency Provider Family Medicine; PCP Family Medicine
DX: S09.8XXA Other specified injuries of head, initial encounter (principal); S01.112A Laceration without foreign body of left eyelid and periocular area, initial encounter; Z79.82 Long term (current) use of aspirin; W01.0XXA Fall on same level from slipping, tripping and stumbling without subsequent striking against object, initial encounter
CPT/HCPCS: 12345; 70450; 72125; 72131; 74176; 80053; 81001; 85025; 85610; 96372; 99283; J2270

== ENCOUNTER → 2020-04-12 14:10 | Outpatient (BNVA) | payer MEDICARE, SELFPAY | PROVIDERS: PCP Family Medicine; Visit Provider Anesthesiology Pain Medicine | DX: G89.29 Other chronic pain (principal); M79.18 Myalgia, other site; M50.90 Cervical disc disorder, unspecified, unspecified cervical region; M47.812 Spondylosis without myelopathy or radiculopathy, cervical region; M54.12 Radiculopathy, cervical region; M54.5 Low back pain; M25.511 Pain in right shoulder; M25.512 Pain in left shoulder; J31.0 Chronic rhinitis; M96.1 Postlaminectomy syndrome, not elsewhere classified; Z98.1 Arthrodesis status | CPT/HCPCS: 20553; 99214; J1030; J3490 ==

== ENCOUNTER → 2020-04-26 13:47 | Outpatient (BNVA) | payer MEDICARE, SELFPAY | PROVIDERS: PCP Family Medicine; Visit Provider Anesthesiology Pain Medicine | DX: G89.29 Other chronic pain (principal); M54.16 Radiculopathy, lumbar region | CPT/HCPCS: 62323; 64483; J1100; J3490 ==

== ENCOUNTER → 2020-05-10 10:23 | Outpatient (BNVA) | payer MEDICARE, SELFPAY | PROVIDERS: PCP Family Medicine; Visit Provider Anesthesiology Pain Medicine | DX: G89.29 Other chronic pain (principal); M54.5 Low back pain; M50.90 Cervical disc disorder, unspecified, unspecified cervical region; M54.12 Radiculopathy, cervical region; M47.812 Spondylosis without myelopathy or radiculopathy, cervical region; M25.511 Pain in right shoulder; M25.512 Pain in left shoulder; M96.1 Postlaminectomy syndrome, not elsewhere classified; J31.0 Chronic rhinitis; Z98.1 Arthrodesis status; Z79.891 Long term (current) use of opiate analgesic | CPT/HCPCS: 99214 ==

== ENCOUNTER 2020-06-17 06:00 | Outpatient (RCR) | payer MEDICARE, SELFPAY | END 2020-07-05 23:59 | disposition home or self-care (01) | LOC: SPT 06:00 | PROVIDERS: PCP Family Medicine; Referring Provider Anesthesiology Pain Medicine; Visit Provider Anesthesiology Pain Medicine | DX: M54.5 Low back pain (principal); G89.29 Other chronic pain | CPT/HCPCS: 97110; 97162 ==

== ENCOUNTER 2020-07-06 06:00 | Outpatient (RCR) | payer MEDICARE, SELFPAY | END 2020-08-04 23:59 | disposition home or self-care (01) | LOC: SPT 06:00 | PROVIDERS: PCP Family Medicine; Referring Provider Anesthesiology Pain Medicine; Visit Provider Anesthesiology Pain Medicine | DX: M54.41 Lumbago with sciatica, right side (principal); M54.42 Lumbago with sciatica, left side; G89.29 Other chronic pain | CPT/HCPCS: 97110; 99214 ==

== ENCOUNTER → 2020-07-06 11:06 | Outpatient (BNVA) | payer MEDICARE, SELFPAY | PROVIDERS: PCP Family Medicine; Visit Provider Anesthesiology Pain Medicine | DX: G89.29 Other chronic pain (principal); M54.5 Low back pain; M50.90 Cervical disc disorder, unspecified, unspecified cervical region; M47.812 Spondylosis without myelopathy or radiculopathy, cervical region; M54.12 Radiculopathy, cervical region; M25.511 Pain in right shoulder; M25.512 Pain in left shoulder; M96.1 Postlaminectomy syndrome, not elsewhere classified; J31.0 Chronic rhinitis; Z98.1 Arthrodesis status | CPT/HCPCS: 99214 ==

== ENCOUNTER 2020-07-16 15:53 | Emergency (ER) | payer MEDICARE, SELFPAY ==
[2020-07-16 16:18] VITALS: BP 153/76; PULSE 62; RESP 16; TEMP 36.7; O2SAT 94; BMI 25.0
[2020-07-16 16:31] LABS: Add Urine Microscopic? NO; Bilirubin Urine Neg (Negative); Blood Urine Neg (Negative); Glucose Urine UA Norm (Normal); Ketones Urine Negative (Negative); Leukocyte Esterase Urine Negative (Negative); Nitrate Urine Negative (Negative); Protein Urine Neg (Negative); Urine Appearance Clear (CLEAR); Urine Color Yellow (Yellow); Urobilinogen Urine Norm (Negative); pH Urine 5 (5-7)
[2020-07-16 16:32] LABS: Charge for UA Resulting for Rev
[2020-07-16 18:01] VITALS: BP 164/59; PULSE 53; O2SAT 95
--- NOTE | 2020-07-16 18:28 | XRR_ITS ---
PROCEDURE INFORMATION: Exam: XR Chest Exam date and time: 07/16/2020 6:28 PM Age: 80 years old Clinical indication: Pain; Left-sided; Additional info: Left sided chest pain x today with SOB and cough TECHNIQUE: Imaging protocol: XR of the chest. Views: 1 view. Total images: 1 COMPARISON: CR XR chest 2V* [id number] 03/12/2019 4:27 PM FINDINGS: Lungs: Minimal bibasilar discoid atelectasis. COPD/chronic bronchitis. Pleural spaces: Unremarkable. No pleural effusion. No pneumothorax. Heart/Mediastinum: Cardiac structures and configuration with arteriosclerosis. Bones/joints: Cervical fusion. Mild scoliotic curvature of the spine. XR/XR chest 1V portable [id number] IMPRESSION: Minimal discoid atelectasis lung bases.
--- NOTE | 2020-07-16 18:28 | ECG_ITS ---
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 Measurements Intervals [place] Rate: 58 P: 31 [place]: 323 QRS: -5 QRSD: 92 T: 30 QT: 415 QTc: 409 Interpretive Statements SINUS BRADYCARDIA WITH FIRST DEGREE AV BLOCK No previous ECG available for comparison Electronically Signed On 07-17-2020 22:59:15 CDT by Kristi Mariee M.D. [email or web address]
--- NOTE | 2020-07-16 18:30 | ED_ITS ---
HPI - Chest Pain General: Chief Complaint: Chest Pain Stated Complaint: SENT BY DR NEWBERRY FOR POSS HEART PROBLEMS Time Seen by Provider: 07/16/20 17:56 History of Present Illness: HPI narrative: Patient is an 80-year-old male comes to the ED with chest pain. Patient says that this morning when he woke up before getting active he started feeling chest pain. He described the pain as a burning sensation. It continued to get worse throughout the morning. Symptoms did not improve with rest. 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 Around 1 PM he took his prescribed OxyContin for his chronic back pain and his chest pain symptoms improved some. He was seen at Dr. Newberry office earlier this afternoon and they told him to come here to the ED to do a cardiac work-up. Patient says he still has a little bit of mild chest pain on his left side of chest. Patient says he took 81 mg of aspirin this morning which he does daily. Denies any other symptoms currently. Patient said he has not had any cardiac history in the past. Patient did say that he takes omeprazole daily for acid reflux and told me that last night he ate really late and then laid down right after dinner. He also says he ate some tangerines as well last night. Associated symptoms: Deny abdominal pain, dyspnea, fever(s), nausea, palpitations or vomiting Review of Systems Const: Denies: fever(s), chills or fatigue Eyes: Denies: change in vision or eye discomfort ENMT: Denies: throat pain, odynophagia, nasal discharge or nasal congestion Card: Reports: chest pain; Denies: palpitations, edema, swelling of feet/ankles, dyspnea on exertion or orthopnea Resp: Denies: dyspnea, productive cough or non-productive cough GI: Denies: abdominal pain, nausea, vomiting, diarrhea, constipation or hematochezia : Denies: flank pain, difficulty urinating, dysuria or hematuria Musc: Denies: neck pain, back pain or extremity swelling Skin/Breast: Denies: rash or new lesions Neuro: Denies: headache(s), numbness in extremities or weakness in extremities [facility] ED PFSH: Medical History BPH NOS w ur obs/LUTS Chronic left shoulder pain Chronic low back pain Chronic right shoulder pain Encounter for long-term use of opiate analgesic Erectile dysfunction due to diseases classified elsewhere Hip replacement planned 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 Mother , at age 54 Stroke Other CAD (coronary artery disease) Cancer Lung disease Social History Smoking and tobacco status: never smoked Second hand smoke exposure: No Alcohol intake: never Marital status: Current occupational status: retired History of recent travel: No Physical Exam Const: COMMON NORMALS: no acute distress, patient oriented x3, healthy appearing and alert GENERAL APPEARANCE: cooperative and comfortable HENMT: COMMON NORMALS: normocephalic HEAD & SCALP: normocephalic MOUTH: Normal oral and palatal mucosa present THROAT: posterior oropharynx normal and uvula midline Neck/C-Spine: COMMON NORMALS: supple GENERAL: Yes normal visual inspection Resp: COMMON NORMALS: normal respiratory effort, No retractions, No use of accessory muscles and clear to auscultation bilaterally EFFORT & INSPECTION: Yes able to speak in complete sentences, No tachypneic, No respiratory distress and No labored AUSCULTATION: clear to auscultation bilaterally Cardio: COMMON NORMALS: regular rate, regular rhythm, S1 normal heart sound present, S2 normal heart sound present, No gallops present (Cardio), No clicks present (Cardio), No murmurs present (Cardio) and Peripheral pulses 2+ throughout RATE: regular rate RHYTHM: regular rhythm HEART SOUNDS: S1 normal heart sound present and S2 normal heart sound present PERIPHERAL PULSES: Peripheral pulses 2+ throughout GI: COMMON NORMALS: Normal to inspection, nondistended, normoactive bowel sounds present, Soft to palpation, non-tender and no masses PALPATION: Yes Soft to palpation : COMMON NORMALS: Yes no CVA tenderness BLADDER/KIDNEY EXAM: Yes no CVA tenderness Back/Pelvis: COMMON NORMALS: no CVA tenderness Extremity: COMMON NORMALS: normal to inspection and no pedal edema Neuro: COMMON NORMALS: patient oriented x3 and moves all extremities SENSORIUM/ORIENTATION: Yes alert Skin: GENERAL SKIN EXAM: dry skin Course Reevaluation(s): Reevaluation #1: Patient said that his residual mild chest pain when he first got to the ED is now improved even more. He says it is almo st completely resolved. Time: 20:28 Reevaluation #2: Patient's chest pain had completely resolved Time: 21:00 Vital Signs: Vital signs: Vital Signs Temperature 98.1 F 07/16/20 21:35 Pulse Rate 100 07/16/20 21:35 Respiratory Rate 20 H 07/16/20 21:35 Blood Pressure 171/91 07/16/20 21:35 Pulse Oximetry 96 07/16/20 21:35 MDM - Chest Pain MDM Narrative: Medical decision making narrative: Patient is an 80-year-old male comes in ED with chest pain. chest pain was described as a burning pain on left side of chest. Symptoms started as soon as patient woke up and chest pain almost resolved before coming to the ED. patient did note that he dinner late last night and went to bed right after he ate. Exam findings benign. CBC and CMP were unremarkable. Troponins negative. BNP normal. EKG showed no signs of ST segment elevation or depression. BNP is normal. Chest x-ray showed no acute findings. Patient diagnosed with noncardiac chest pain is likely due to GERD symptoms based off history. Follow-up with PCP in 5 to 7 days for reevaluation. Return to ED precautions given. Patient understood and agreed with plan. Lab Data: Attestation: I reviewed the patient's lab results. Labs: Lab Results 07/16/20 07/16/20 07/16/20 Range/Units 16:17 20:00 20:00 WBC 6.0 (4.0-10.0) 10^3/ uL RBC 4.18 (4.1-5.3) 10^6/u L Hgb 13.0 (11.7-16.6) g/dL Hct 42.4 (42.0-52.0) % MCV 101.4 H (80-94) fL MCH 31.1 (28.0-34.0) pg MCHC 30.7 (30.0-36.0) g/dL RDW 14.8 (12.1-15.1) % Plt Count 182 (130-400) 10^3/c mm MPV 10.2 (7.4-10.4) fL Neut % (Auto) 57.3 % Lymph % (Auto) 29.0 % Pickett % (Auto) 10.2 % Eos % (Auto) 2.7 % Baso % (Auto) 0.5 % Neut # (Auto) 3.41 (1.8-7.7) 10^3/u L Lymph # (Auto) 1.7 (0.8-4.8) 10^3/u L Pickett # (Auto) 0.6 (0.2-0.9) 10^3/u L Eos # (Auto) 0.2 (0.0-0.8) 10^3/u L Baso # (Auto) 0.0 (0.0-0.1) 10^3/u L Nucleated RBC % (a uto) 0 % Nucleated RBCs # 0.0 /100WBC Sodium 140 (136-145) mmol/L Potassium 4.2 (3.5-5.1) mmol/L Chloride 105 (98-107) mmol/L Carbon Dioxide 27 (22-29) mmol/L Anion Gap 12.2 (5-19) BUN 30 H (8-23) mg/dL Creatinine 0.8 (0.7-1.2) mg/dL GFR Calculation Not Reportable Glucose 103 (65-115) mg/dL Calculated Osmolal ity 296 H (285-295) mOsm/k g Calcium 8.8 (8.5-10.5) mg/dL Total Bilirubin 0.3 (0.15-1.2) mg/dL AST 13 (0-40) U/L ALT 14 (0-41) U/L Alkaline Phosphata se 54 (40-130) IU/L Troponin T Baselin e (0-15) ng/L NT-Pro-B Natriuret Pep 165 (0-450) pg/mL Total Protein 6.6 (6.6-8.7) g/dL Albumin 4.0 (3.5-5.2) g/dL Globulin 2.6 (1.3-4.6) g/dL Lipase 24 (13-60) U/L Urine Color Yellow (Yellow) Urine Appearance Clear (CLEAR) Urine pH 5 (5-7) Ur Specific Gravit y 1.020 (1.005-1.030) Urine Protein Neg (Negative) Urine Glucose (UA) Norm (Normal) Urine Ketones Negative (Negative) Urine Blood Neg (Negative) Urine Nitrate Negative (Negative) Urine Bilirubin Neg (Negative) Urine Urobilinogen Norm (Negative) mg/dL Ur Leukocyte Martha ase Negative (Negative) 07/16/20 Range/Units 20:00 WBC (4.0-10.0) 10^3/ uL RBC (4.1-5.3) 10^6/u L Hgb (11.7-16.6) g/dL Hct (42.0-52.0) % MCV (80-94) fL MCH (28.0-34.0) pg MCHC (30.0-36.0) g/dL RDW (12.1-15.1) % Plt Count (130-400) 10^3/c mm MPV (7.4-10.4) fL Neut % (Auto) % Lymph % (Auto) % Pickett % (Auto) % Eos % (Auto) % Baso % (Auto) % Neut # (Auto) (1.8-7.7) 10^3/u L Lymph # (Auto) (0.8-4.8) 10^3/u L Pickett # (Auto) (0.2-0.9) 10^3/u L Eos # (Auto) (0.0-0.8) 10^3/u L Baso # (Auto) (0.0-0.1) 10^3/u L Nucleated RBC % (a uto) % Nucleated RBCs # /100WBC Sodium (136-145) mmol/L Potassium (3.5-5.1) mmol/L Chloride (98-107) mmol/L Carbon Dioxide (22-29) mmol/L Anion Gap (5-19) BUN (8-23) mg/dL Creatinine (0.7-1.2) mg/dL GFR Calculation Glucose (65-115) mg/dL Calculated Osmolal ity (285-295) mOsm/k g Calcium (8.5-10.5) mg/dL Total Bilirubin (0.15-1.2) mg/dL AST (0-40) U/L ALT (0-41) U/L Alkaline Phosphata se (40-130) IU/L Troponin T Baselin e 11 (0-15) ng/L NT-Pro-B Natriuret Pep (0-450) pg/mL Total Protein (6.6-8.7) g/dL Albumin (3.5-5.2) g/dL Globulin (1.3-4.6) g/dL Lipase (13-60) U/L Urine Color (Yellow) Urine Appearance (CLEAR) Urine pH (5-7) Ur Specific Gravit y (1.005-1.030) Urine Protein (Negative) Urine Glucose (UA) (Normal) Urine Ketones (Negative) Urine Blood (Negative) Urine Nitrate (Negative) Urine Bilirubin (Negative) Urine Urobilinogen (Negative) mg/dL Ur Leukocyte Martha ase (Negative) Imaging Data^: CXR: Attestation: I personally reviewed and interpreted this imaging study as follows: Radiologist's impression: [address] [address] XRay Report Signed Patient: Bear Carballo Unit #: [id number] : 1940 Age/Sex: 80 / M ADM Date: 07/16/20 Loc: ER Room/Bed: Attending Dr: Ordering Provider/Ordering MD: Saji Larsen Date of Service: 07/16/20 Procedure(s): XR chest 1V portable [id number] Accession Number(s): [id number] Report Number: [id number] PROCEDURE INFORMATION: Exam: XR Chest Exam date and time: 07/16/2020 6:28 PM Age: 80 years old Clinical indication: Pain; Left-sided; Additional info: Left sided chest pain x today with SOB and cough TECHNIQUE: Imaging protocol: XR of the chest. Views: 1 view. Total images: 1 COMPARISON: CR XR chest 2V* [id number] 03/12/2019 4:27 PM FINDINGS: Lungs: Minimal bibasilar discoid atelectasis. COPD/chronic bronchitis. Pleural spaces: Unremarkable. No pleural effusion. No pneumothorax. Heart/Mediastinum: Cardiac structures and configuration with arteriosclerosis. Bones/joints: Cervical fusion. Mild scoliotic curvature of the spine. XR/XR chest 1V portable [id number] IMPRESSION: Minimal discoid atelectasis lung bases. Dictated By: Zachariah Encarnacion Signed By: Zachariah Encarnacion Signed Date/Time: 07/16/201931 DD/ 30 EKG Data^: EKG 1: Attestation: I personally reviewed and interpreted this EKG as follows: EKG interpretation date: 07/16/20 Interpretation: Sinus bradycardia with first-degree AV block, 58 bpm, no ST segment elevation or depression seen. Discharge Plan Discharge Patient Disposition: Home Clinical Impression: Chest pain, non-cardiac Condition: Stable Prescriptions: No Action olopatadine [Pataday] 0.2 % drops 1 drop ophthalmic (eye) DAILY@0900 RF: 0 albuterol sulfate 90 mcg/actuation aerosol powdr breath activated 2 inh INHALATION Q6H PRN (Reason: Shortness Of Breath) RF: 0 tramadol 50 mg tablet 50 mg PO QID PRN (Reason: pain) 30 Days Qty: 120 RF: 1 tamsulosin [Flomax] 0.4 mg capsule 0.4 mg PO DAILY@2100 RF: 0 sildenafil 50 mg tablet See Rx Instructions PO DAILY PRN (Reason: erectile disfunction) RF: 0 finasteride 5 mg tablet 5 mg PO DAILY@0900 RF: 0 allopurinol 300 mg tablet 300 mg PO DAILY@0900 RF: 0 Flovent Diskus 50 mcg/actuation blister with device 1 inh INHALATION BID RF: 0 lovastatin 20 mg tablet 20 mg PO DAILY@0900 RF: 0 omeprazole 20 mg tablet,delayed release (DR/EC) 20 mg PO DAILY@0900 RF: 0 multivitamin Tablet 1 tab PO DAILY@0900 RF: 0 cholecalciferol (vitamin D3) 1,250 mcg (50,000 unit) capsule 1,250 mcg PO DAILY@0900 RF: 0 ascorbate calcium (vitamin C) 500 mg tablet 500 mg PO DAILY@0900 RF: 0 aspirin [Adult Aspirin Regimen] 81 mg tablet,delayed release (DR/EC) 81 mg PO DAILY@0900 RF: 0 docusate sodium [Colace] 100 mg capsule 100 mg PO BID PRN (Reason: Constipation) RF: 0 diphenoxylate-atropine [Lomotil] 2.5-0.025 mg tablet 1 tab PO QID PRN (Reason: Diarrhea) RF: 0 garlic 1,000 mg capsule 2,000 mg PO DAILY@0900 RF: 0 lutein 20 mg capsule 20 mg PO DAILY@0900 RF: 0 melatonin 3 mg capsule 3 mg PO BEDTIME@2300 PRN (Reason: Insomnia) RF: 0 alendronate [Fosamax] 70 mg tablet 70 mg PO Q7D RF: 0 vitamin B complex [B Complex-Vitamin B12] Tablet 1 tab PO DAILY@0900 RF: 0 cod liver oil Capsule 1 cap PO DAILY@0900 RF: 0 ICaps AREDS2 (copper citrate) 250 mg-200 unit -12.5 mg-1 mg tablet 1 tab PO BID@0900,2100 RF: 0 vitamin A 8,000 unit capsule 8,000 unit PO DAILY@0900 RF: 0 gabapentin 600 mg tablet 600 mg PO QID@09,13,17,21 RF: 0 acetaminophen [Tylenol] 325 mg Tablet 325 - 650 mg PO QID PRN (Reason: Pain) RF: 0 oxycodone 15 mg Tablet 15 mg PO QID PRN (Reason: Pain) RF: 0 Discharge Orders: Discharge ED (Routine); Ordered 07/16/20 Ordered By: Saji Larsen Referrals: Celeste Newberry DO [Primary Care Provider] - Discharge Diet: Regular Discharge Activity: Increase activity as tolerated Patient Instructions: Noncardiac Chest Pain (ED) Activity Restrictions/Additional Instructions: Follow-up with medical provider as directed in 5 to 7 days for reevaluation. Continue taking all home medications as prescribed. Return to the ER or your de dical provider if condition worsens. Please read and understand discharge instructions. Thank you for choosing [facility] for your healthcare needs today. Please realize this is an emergency room and that we are providing you with a medical screening exam and this may not be complete and all inclusive of all the testing and or work up that you may need to determine your ailment or severity of your illness. It is very important that you follow up as instructed or that you return to the Emergency Department should you have concerns or if your condition changes or worsens in any way. Coding Level of Care Code ED [employer] for Haily Fwdennise Exam Comprehensive
[2020-07-16 18:51] VITALS: PULSE 58
[2020-07-16 19:00] VITALS: BP 185/90; PULSE 100; RESP 20; O2SAT 96
[2020-07-16 20:00] VITALS: PULSE 100; RESP 20; TEMP 36.7; O2SAT 96
[2020-07-16 20:13] LABS: Basophils % 0.5 %; Eosinophils # 0.2 10^3/uL (0.0-0.8); Eosinophils % 2.7 %; Hematocrit 42.4 % (42.0-52.0); Lymphocytes # 1.7 10^3/uL (0.8-4.8); Mean Corpuscular HGB Conc 30.7 g/dL (30.0-36.0); Mean Corpuscular Hemoglobin 31.1 pg (28.0-34.0); Mean Corpuscular Volume 101.4 fL (80-94); Mean Platelet Volume 10.2 fL (7.4-10.4); Monocytes # 0.6 10^3/uL (0.2-0.9); Monocytes % 10.2 %; Neutrophils # 3.41 10^3/uL (1.8-7.7); Neutrophils % 57.3 %; Nucleated Red Blood Cells % 0 %; Platelet Count 182 10^3/cmm (130-400); Red Blood Count 4.18 10^6/uL (4.1-5.3); Red Cell Distribution Width 14.8 % (12.1-15.1)
[2020-07-16 20:35] LABS: Alanine Aminotransferase 14 U/L (0-41); Alkaline Phosphatase 54 IU/L (40-130); Anion Gap 12.2 (5-19); Aspartate Amino Transferase 13 U/L (0-40); Blood Urea Nitrogen 30 mg/dL (8-23); Calcium 8.8 mg/dL (8.5-10.5); Carbon Dioxide 27 mmol/L (22-29); Chloride 105 mmol/L (98-107); Globulin 2.6 g/dL (1.3-4.6); Glucose 103 mg/dL (65-115); Lipase 24 U/L (13-60); NT Pro B Type Natriuretic Pept 165 pg/mL (0-450); Osmolality Calculated 296 mOsm/kg (285-295); Potassium 4.2 mmol/L (3.5-5.1); Sodium 140 mmol/L (136-145); Total Bilirubin 0.3 mg/dL (0.15-1.2); Total Protein 6.6 g/dL (6.6-8.7)
[2020-07-16 20:48] LABS: Troponin(5th) Baseline 11 ng/L (0-15)
[2020-07-16 21:35] VITALS: BP 171/91; PULSE 100; RESP 20; TEMP 36.7; O2SAT 96
== END 2020-07-16 21:37 | disposition home or self-care (01) ==
PROVIDERS: Family Medicine; Emergency Provider Physician Assistant; PCP Family Medicine
DX: R07.89 Other chest pain (principal); Z79.82 Long term (current) use of aspirin
CPT/HCPCS: 71045; 80053; 81003; 83690; 83880; 84484; 85025; 93005; 99284

== ENCOUNTER → 2020-08-03 13:25 | Outpatient (BNVA) | payer MEDICARE, SELFPAY | PROVIDERS: PCP Family Medicine; Visit Provider Urology | DX: N40.1 Benign prostatic hyperplasia with lower urinary tract symptoms (principal); N52.1 Erectile dysfunction due to diseases classified elsewhere | CPT/HCPCS: 81003 ==

== ENCOUNTER → 2020-09-02 08:12 | Outpatient (BNVA) | payer MEDICARE, SELFPAY | PROVIDERS: PCP Family Medicine; Visit Provider Nurse Practitioner Family | DX: J06.9 Acute upper respiratory infection, unspecified (principal); Z20.822 Contact with and (suspected) exposure to COVID-19 | CPT/HCPCS: 87426 ==

== ENCOUNTER 2020-09-04 04:59 | Outpatient (CLI) | payer MEDICARE, SELFPAY ==
[2020-09-04 06:31] VITALS: BP 164/60; PULSE 89; RESP 18; TEMP 36.8; O2SAT 98; BMI 24.2
--- NOTE | 2020-09-04 06:35 | A.OFFVIS_ITS ---
Patient Information Symptom onset date: 08/27/20 COVID 19 common symptoms: positive fever(s), chills, cough, non-productive cough, dyspnea, fatigue, body aches, headache(s), loss of sense of smell and/or taste, throat pain and nasal congestion COVID 19 other sytmptoms: negative requiring oxygen Severity: mild Treatment prior to arrival: none Other details: 1-year-old male presents for monoclonal antibody infusion tested positive on 729 symptoms beginning couple of days prior. He is within 6 to 10 days reviewed risk benefits alternatives he wishes to proceed. [facility] COVID test results: SARS-CoV-2 Antigen (Rapid) Positive (Negative) H 09/02/20 08:12 09/02/20 Criteria/Plan Inclusion/Exclusion Criteria weight >/= 40kg, + direct test </= 10 days ago and symptom onset </= 10 days ago age >/= 65 not requiring hospitalization, not requiring oxygen (if not chronically on oxygen) and no increase oxygen requirement (if chronically on oxygen) Patient education patient/family/caregiver received/reviewed fact sheet, Emergency Use Au thorization/unapproved drug status discussed with patient/family/caregiver, alternatives to this treatment discussed with patient/family/caregiver, risks and benefits of medication reviewed with patient/family/caregiver, patient/family/caregiver given opportunity for questions, which were answered and patient consents to receiving Monoclonal Antibody Treatment Plan for treatment Meets criteria for Monoclonal Antibody infusion Ordering Monoclonal Antibody infusion for today
[2020-09-04 08:58] VITALS: BP 146/71; PULSE 67; RESP 17; TEMP 36.6
== END 2020-09-04 05:00 | disposition home or self-care (01) ==
LOC: ER 05:02
PROVIDERS: PCP Family Medicine; Visit Provider Nurse Practitioner Family
DX: U07.1 COVID-19 (principal)
CPT/HCPCS: 96365

== ENCOUNTER → 2020-11-11 08:36 | Outpatient (BNVA) | payer MEDICARE, SELFPAY | PROVIDERS: PCP Family Medicine; Visit Provider Anesthesiology Pain Medicine | DX: G89.29 Other chronic pain (principal); M50.90 Cervical disc disorder, unspecified, unspecified cervical region; M47.812 Spondylosis without myelopathy or radiculopathy, cervical region; M54.12 Radiculopathy, cervical region; M25.512 Pain in left shoulder; M25.511 Pain in right shoulder; M79.621 Pain in right upper arm; M96.1 Postlaminectomy syndrome, not elsewhere classified; Z98.1 Arthrodesis status; Z79.891 Long term (current) use of opiate analgesic | CPT/HCPCS: 99213 ==

== ENCOUNTER → 2020-11-29 13:44 | Outpatient (BNVA) | payer MEDICARE, SELFPAY | PROVIDERS: PCP Family Medicine; Visit Provider Anesthesiology Pain Medicine | DX: M54.12 Radiculopathy, cervical region (principal); Z79.891 Long term (current) use of opiate analgesic | CPT/HCPCS: 62321; J1100 ==

== ENCOUNTER 2020-12-07 10:06 | Outpatient (CLI) | payer MEDICARE, SELFPAY ==
--- NOTE | 2020-12-07 10:10 | XR_ITS ---
WS: [id number] DEXA (DUAL ENERGY X-RAY ABSORPTIOMETRY) Bone mineral density was performed using a SMS Assist machine. 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 COMPARISON: None available. Left forearm BMD: 0.805 g/cm2. T score: -1.9 Z score: -0.6 Total hip BMD: Right: 0.822. T score: -1.9 Z score: -0.5 10 year probability of a major osteoporotic fracture is 23%. XR/XR DEXA axial skeleton* [id number] IMPRESSION: OSTEOPENIA patient is at increased risk for fracture.
== END 2020-12-07 10:07 | disposition home or self-care (01) ==
PROVIDERS: PCP Family Medicine; Visit Provider Family Medicine
DX: M81.0 Age-related osteoporosis without current pathological fracture (principal); M85.80 Other specified disorders of bone density and structure, unspecified site
CPT/HCPCS: 73030; 77080

== ENCOUNTER → 2020-12-13 10:44 | Outpatient (BNVA) | payer MEDICARE, SELFPAY | PROVIDERS: PCP Family Medicine; Visit Provider Anesthesiology Pain Medicine | DX: G89.29 Other chronic pain (principal); M54.12 Radiculopathy, cervical region; M47.812 Spondylosis without myelopathy or radiculopathy, cervical region; M50.90 Cervical disc disorder, unspecified, unspecified cervical region; M25.511 Pain in right shoulder; M25.512 Pain in left shoulder; M96.1 Postlaminectomy syndrome, not elsewhere classified; Z98.1 Arthrodesis status; Z79.891 Long term (current) use of opiate analgesic | CPT/HCPCS: 99214 ==

== ENCOUNTER 2020-12-15 06:00 | Outpatient (RCR) | payer MEDICARE, SELFPAY | END 2021-01-04 16:48 | disposition home or self-care (01) | LOC: SPT 06:00 | PROVIDERS: PCP Family Medicine; Referring Provider Internal Medicine Hematology & Oncology; Visit Provider Internal Medicine Hematology & Oncology | DX: M54.50 Low back pain, unspecified (principal) | CPT/HCPCS: 97161 ==

== ENCOUNTER 2020-12-15 06:00 | Outpatient (RCR) | payer MEDICARE, SELFPAY | END 2021-01-04 23:59 | disposition home or self-care (01) | LOC: SPT 06:00 | PROVIDERS: PCP Family Medicine; Referring Provider Orthopaedic Surgery; Visit Provider Orthopaedic Surgery | DX: M25.511 Pain in right shoulder (principal); M25.512 Pain in left shoulder | CPT/HCPCS: 97110; 97161 ==

== ENCOUNTER 2021-01-05 06:00 | Outpatient (RCR) | payer MEDICARE, SELFPAY | END 2021-01-12 23:59 | disposition home or self-care (01) | LOC: SPT 06:00 | PROVIDERS: PCP Family Medicine; Visit Provider Orthopaedic Surgery | DX: M25.511 Pain in right shoulder (principal); M25.512 Pain in left shoulder | CPT/HCPCS: 97110 ==

== ENCOUNTER → 2021-02-01 14:34 | Outpatient (BNVA) | payer MEDICARE, SELFPAY | PROVIDERS: PCP Family Medicine; Visit Provider Urology | DX: N40.1 Benign prostatic hyperplasia with lower urinary tract symptoms (principal) | CPT/HCPCS: 81003 ==

== ENCOUNTER → 2021-02-07 10:40 | Outpatient (BNVA) | payer MEDICARE, SELFPAY | PROVIDERS: PCP Family Medicine; Visit Provider Anesthesiology Pain Medicine | DX: G89.29 Other chronic pain (principal); M54.50 Low back pain, unspecified; M50.90 Cervical disc disorder, unspecified, unspecified cervical region; M54.12 Radiculopathy, cervical region; M47.812 Spondylosis without myelopathy or radiculopathy, cervical region; J31.0 Chronic rhinitis; M25.511 Pain in right shoulder; M25.512 Pain in left shoulder; Z98.1 Arthrodesis status; M96.1 Postlaminectomy syndrome, not elsewhere classified; Z79.891 Long term (current) use of opiate analgesic | CPT/HCPCS: 99214 ==

== ENCOUNTER → 2021-02-21 14:28 | Outpatient (BNVA) | payer MEDICARE, SELFPAY | PROVIDERS: PCP Family Medicine; Visit Provider Anesthesiology Pain Medicine | DX: G89.29 Other chronic pain (principal); Z79.891 Long term (current) use of opiate analgesic; M47.816 Spondylosis without myelopathy or radiculopathy, lumbar region; M54.16 Radiculopathy, lumbar region | CPT/HCPCS: 64483; 64484; J1100; J3490 ==

== ENCOUNTER 2021-03-02 06:00 | Outpatient (RCR) | payer MEDICARE, SELFPAY | END 2021-03-07 23:59 | disposition home or self-care (01) | LOC: SPT 06:00 | PROVIDERS: PCP Family Medicine; Referring Provider Anesthesiology Pain Medicine; Visit Provider Anesthesiology Pain Medicine | DX: M54.50 Low back pain, unspecified (principal); G89.29 Other chronic pain | CPT/HCPCS: 97162 ==

== ENCOUNTER → 2021-03-07 09:38 | Outpatient (BNVA) | payer MEDICARE, SELFPAY | PROVIDERS: PCP Family Medicine; Visit Provider Anesthesiology Pain Medicine | DX: G89.29 Other chronic pain (principal); M50.90 Cervical disc disorder, unspecified, unspecified cervical region; M47.812 Spondylosis without myelopathy or radiculopathy, cervical region; M54.12 Radiculopathy, cervical region; M25.511 Pain in right shoulder; M25.512 Pain in left shoulder; M96.1 Postlaminectomy syndrome, not elsewhere classified; J31.0 Chronic rhinitis; Z98.1 Arthrodesis status; Z79.891 Long term (current) use of opiate analgesic | CPT/HCPCS: 99213 ==

== ENCOUNTER 2021-03-08 06:00 | Outpatient (RCR) | payer MEDICARE, SELFPAY | END 2021-04-04 23:59 | disposition home or self-care (01) | LOC: SPT 06:00 | PROVIDERS: PCP Family Medicine; Referring Provider Anesthesiology Pain Medicine; Visit Provider Anesthesiology Pain Medicine | DX: M54.50 Low back pain, unspecified (principal); G89.29 Other chronic pain | CPT/HCPCS: 97110 ==

== ENCOUNTER → 2021-05-30 09:40 | Outpatient (BNVA) | payer MEDICARE, SELFPAY | PROVIDERS: PCP Family Medicine; Visit Provider Anesthesiology Pain Medicine | DX: G89.29 Other chronic pain (principal); M50.90 Cervical disc disorder, unspecified, unspecified cervical region; M47.812 Spondylosis without myelopathy or radiculopathy, cervical region; M54.12 Radiculopathy, cervical region; J31.0 Chronic rhinitis; M25.511 Pain in right shoulder; M25.512 Pain in left shoulder; M96.1 Postlaminectomy syndrome, not elsewhere classified; Z98.1 Arthrodesis status; Z79.891 Long term (current) use of opiate analgesic | CPT/HCPCS: 99213 ==

== ENCOUNTER → 2021-08-15 10:49 | Outpatient (BNVA) | payer MEDICARE, SELFPAY | PROVIDERS: PCP Family Medicine; Visit Provider Podiatrist Foot & Ankle Surgery | DX: D64.9 Anemia, unspecified (principal); I73.9 Peripheral vascular disease, unspecified; L60.3 Nail dystrophy; Q66.71 Congenital pes cavus, right foot; M79.671 Pain in right foot; M79.672 Pain in left foot; Q66.72 Congenital pes cavus, left foot | CPT/HCPCS: 11721 ==

== ENCOUNTER 2021-08-15 12:12 | Outpatient (CLI) | payer MEDICARE, SELFPAY ==
--- NOTE | 2021-08-15 12:22 | XRR_ITS ---
PROCEDURE INFORMATION: Exam: XR Abdomen Exam date and time: 08/15/2021 12:26 PM Age: 81 years old Clinical indication: Abdominal pain; Localized; Left upper quadrant (luq); Prior surgery; Patient HX: Pain to left side of abd and chest x 2 weeks, HX of stomach, colon cancer and lymphoma; Additional info: Luq abdominal pain TECHNIQUE: Imaging protocol: Radiologic exam of the abdomen. Views: Frontal supine view of the abdomen. 1 View. COMPARISON: CT abdomen pelvis con [id number] 02/19/2020 6:21 PM FINDINGS: Gastrointestinal tract: bowel gas pattern is nonspecific. Air filled large bowel including distal rectal gas. Moderate amount stool throughout the large bowel. Bones/joints: Prior hip arthroplasty on the left. Surgical plate and pedicle screws L2 through L5. XR/XR abdomen 1V* [id number] IMPRESSION: 1. Bowel gas pattern is nonspecific. Air filled large bowel including distal rectal gas. 2. Moderate amount stool throughout the large bowel.
--- NOTE | 2021-08-15 12:54 | XRR_ITS ---
PROCEDURE INFORMATION: Exam: XR Chest Exam date and time: 08/15/2021 12:53 PM Age: 81 years old Clinical indication: Angina pectoris; Patient HX: Lt sided chest pain x 2 weeks. Doctor only ordered 1 view i questioned them about wanting 2 views but they said they wanted only the 1 view; Additional info: Pain, HX of colon and stomach cancer TECHNIQUE: Imaging protocol: Radiologic exam of the chest. Views: 1 view. COMPARISON: CR XR chest 1V portable [id number] 07/16/2020 6:31 PM FINDINGS: Lungs: Mild atelectasis both lung bases left slightly greater than right. Lungs are otherwise well aerated. Pleural spaces: Unremarkable. No pleural effusion. No pneumothorax. Heart/Mediastinum: Unremarkable. No cardiomegaly. Bones/joints: Unremarkable. XR/XR chest 1V [id number] IMPRESSION: Mild atelectasis both lung bases left slightly greater than right. Lungs are otherwise well aerated.
== END 2021-08-15 12:13 | disposition home or self-care (01) ==
LOC: RAD 12:14
PROVIDERS: PCP Family Medicine; Visit Provider Internal Medicine Gastroenterology
DX: R10.12 Left upper quadrant pain (principal); J98.11 Atelectasis
CPT/HCPCS: 71045; 74018

== ENCOUNTER → 2021-08-29 10:34 | Outpatient (BNVA) | payer MEDICARE, SELFPAY | PROVIDERS: PCP Family Medicine; Visit Provider Anesthesiology Pain Medicine | DX: G89.29 Other chronic pain (principal); M50.90 Cervical disc disorder, unspecified, unspecified cervical region; M54.12 Radiculopathy, cervical region; M47.812 Spondylosis without myelopathy or radiculopathy, cervical region; M25.511 Pain in right shoulder; M25.512 Pain in left shoulder; J31.0 Chronic rhinitis; Z98.1 Arthrodesis status; M96.1 Postlaminectomy syndrome, not elsewhere classified; Z79.891 Long term (current) use of opiate analgesic | CPT/HCPCS: 99214 ==

== ENCOUNTER → 2021-09-26 13:30 | Outpatient (BNVA) | payer MEDICARE, SELFPAY | PROVIDERS: PCP Family Medicine; Visit Provider Anesthesiology Pain Medicine | DX: G89.29 Other chronic pain (principal); M54.16 Radiculopathy, lumbar region | CPT/HCPCS: 64483; 64484; J1100; J3490 ==

== ENCOUNTER → 2021-12-20 10:05 | Outpatient (BNVA) | payer MEDICARE, SELFPAY | PROVIDERS: PCP Family Medicine; Visit Provider Podiatrist Foot & Ankle Surgery | DX: I73.9 Peripheral vascular disease, unspecified (principal); E11.8 Type 2 diabetes mellitus with unspecified complications; L60.3 Nail dystrophy; Q66.71 Congenital pes cavus, right foot; Q66.72 Congenital pes cavus, left foot | CPT/HCPCS: 11721 ==

== ENCOUNTER → 2022-01-12 13:27 | Outpatient (BNVA) | payer MEDICARE, SELFPAY | PROVIDERS: PCP Family Medicine; Visit Provider Urology | DX: N40.1 Benign prostatic hyperplasia with lower urinary tract symptoms (principal) | CPT/HCPCS: 51798; 81003; 99213 ==

== ENCOUNTER 2022-03-22 14:21 | Outpatient (RCR) | payer MEDICARE, SELFPAY | END 2022-04-04 23:59 | disposition home or self-care (01) | LOC: CR 14:21 | PROVIDERS: PCP Family Medicine; Referring Provider Family Medicine; Visit Provider Family Medicine | DX: Z95.5 Presence of coronary angioplasty implant and graft (principal) | CPT/HCPCS: 93798 ==

== ENCOUNTER 2022-04-10 14:30 | Outpatient (RCR) | payer MEDICARE, SELFPAY | END 2022-05-05 23:59 | disposition home or self-care (01) | LOC: CR 14:30 | PROVIDERS: PCP Family Medicine; Referring Provider Family Medicine; Visit Provider Family Medicine | DX: Z95.5 Presence of coronary angioplasty implant and graft (principal) | CPT/HCPCS: 93798 ==

== ENCOUNTER → 2022-04-13 10:09 | Outpatient (BNVA) | payer MEDICARE, SELFPAY | PROVIDERS: PCP Family Medicine; Visit Provider Podiatrist Foot & Ankle Surgery | DX: E11.8 Type 2 diabetes mellitus with unspecified complications (principal); D64.9 Anemia, unspecified; I73.9 Peripheral vascular disease, unspecified; L60.3 Nail dystrophy; Q66.71 Congenital pes cavus, right foot; Q66.72 Congenital pes cavus, left foot | CPT/HCPCS: 11721 ==

== ENCOUNTER 2022-05-12 15:59 | Outpatient (RCR) | payer MEDICARE, SELFPAY | END 2022-06-04 23:59 | disposition home or self-care (01) | LOC: CR 15:59 | PROVIDERS: PCP Family Medicine; Referring Provider Family Medicine; Visit Provider Family Medicine | DX: Z95.5 Presence of coronary angioplasty implant and graft (principal) | CPT/HCPCS: 93798 ==

== ENCOUNTER 2022-06-02 12:09 | Outpatient (CLI) | payer MEDICARE, SELFPAY ==
--- NOTE | 2022-06-02 12:19 | XR_ITS ---
WS: [id number] Exam: XR wrist RT 2V [id number] Date/Time of Exam: 06/02/2022 12:26 PM Reason For Exam: R WRIST PAIN No fracture or dislocation. Mild degenerative change of the radiocarpal joint. Degenerative change at the CMC joint of the thumb as well as the articulation of the scaphoid and greater multangular. Dege nerative change with [id number] involving the lunate and capitate. Calcification of the TFC. Mild s oft tissue swelling about the wrist. Vascular calcifications in the volar soft tissues. XR/XR wrist RT 2V [id number] IMPRESSION: 1. Moderate degenerative changes of the wrist. No fracture or dislocation.
== END 2022-06-02 12:10 | disposition home or self-care (01) ==
LOC: RAD 12:13
PROVIDERS: PCP Family Medicine; Visit Provider Family Medicine
DX: M25.531 Pain in right wrist (principal); M19.031 Primary osteoarthritis, right wrist
CPT/HCPCS: 73100

== ENCOUNTER 2022-06-12 14:16 | Outpatient (RCR) | payer MEDICARE, SELFPAY | END 2022-07-05 23:59 | disposition home or self-care (01) | LOC: CR 14:16 | PROVIDERS: PCP Family Medicine; Referring Provider Family Medicine; Visit Provider Family Medicine | DX: Z95.5 Presence of coronary angioplasty implant and graft (principal) | CPT/HCPCS: 93798 ==

== ENCOUNTER → 2022-06-22 12:59 | Outpatient (BNVA) | payer MEDICARE, SELFPAY | PROVIDERS: PCP Family Medicine; Visit Provider Podiatrist Foot & Ankle Surgery | DX: I73.9 Peripheral vascular disease, unspecified (principal); L60.8 Other nail disorders; D64.9 Anemia, unspecified; L60.3 Nail dystrophy; L84 Corns and callosities; Q66.72 Congenital pes cavus, left foot; Q66.71 Congenital pes cavus, right foot | CPT/HCPCS: 11056; 11721 ==

== ENCOUNTER 2022-07-07 14:59 | Outpatient (RCR) | payer MEDICARE, SELFPAY | END 2022-08-04 23:59 | disposition home or self-care (01) | LOC: CR 14:59 | PROVIDERS: PCP Family Medicine; Referring Provider Family Medicine; Visit Provider Family Medicine | DX: Z95.5 Presence of coronary angioplasty implant and graft (principal) | CPT/HCPCS: 93798 ==

== ENCOUNTER → 2022-07-18 09:41 | Outpatient (BNVA) | payer MEDICARE, SELFPAY | PROVIDERS: PCP Family Medicine; Visit Provider Anesthesiology Pain Medicine | DX: G89.29 Other chronic pain (principal); M50.90 Cervical disc disorder, unspecified, unspecified cervical region; M25.511 Pain in right shoulder; M25.512 Pain in left shoulder; M47.812 Spondylosis without myelopathy or radiculopathy, cervical region; M54.12 Radiculopathy, cervical region; M96.1 Postlaminectomy syndrome, not elsewhere classified; Z98.1 Arthrodesis status | CPT/HCPCS: 99214 ==

== ENCOUNTER 2022-07-28 10:24 | Emergency (ER) | payer MEDICARE, SELFPAY ==
[2022-07-28 10:29] VITALS: BP 109/45; PULSE 59; RESP 14; TEMP 36.8; O2SAT 93; BMI 24.2
--- NOTE | 2022-07-28 10:32 | ECG_ITS ---
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 Measurements Intervals [place] Rate: 55 P: 46 GA: 329 QRS: 19 QRSD: 92 T: 20 QT: 438 QTc: 419 Interpretive Statements SINUS BRADYCARDIA WITH FIRST DEGREE AV BLOCK WITH OCCASIONAL SUPRAVENTRICULAR PREMATURE COMPLEXES MARKED ST ELEVATION, CONSIDER INFERIOR INJURY Compared to ECG 07/16/2020 18:45:16 ST (T wave) deviation now present Myocardial infarct finding now present Electronically Signed On 07-28-2022 10:59:07 CDT by Kristi Mariee M.D. [id number]
[2022-07-28 10:48] LABS: Basophils % 0.3 %; Eosinophils # 0.5 10^3/uL (0.0-0.8); Eosinophils % 8.3 %; Hemoglobin 9.4 g/dL (11.7-16.6); Lymphocytes # 1.2 10^3/uL (0.8-4.8); Lymphocytes % 19.8 %; Mean Corpuscular HGB Conc 30.3 g/dL (30.0-36.0); Mean Corpuscular Hemoglobin 32.3 pg (28.0-34.0); Mean Corpuscular Volume 106.5 fl (80-94); Mean Platelet Volume 10.1 fL (7.4-10.4); Monocytes # 0.6 10^3/uL (0.2-0.9); Monocytes % 9.8 %; Neutrophils # 3.65 10^3/uL (1.8-7.7); Neutrophils % 61.6 %; Nucleated Red Blood Cells % 0 %; Platelet Count 140 10^3/cmm (130-400); Red Blood Count 2.91 10^6/uL (4.1-5.3); Red Cell Distribution Width 15.1 % (12.1-15.1); White Blood Count 5.9 10^3/uL (4.0-10.0)
[2022-07-28 11:04] LABS: Anion Gap 14.3 (5-19); Blood Urea Nitrogen 62 mg/dL (8-23); Calcium 8.3 mg/dL (8.5-10.5); Carbon Dioxide 25 mmol/L (22-29); Chloride 111 mmol/L (98-107); Glucose 110 mg/dL (65-115); Osmolality Calculated 318 mOsm/kg (285-295); Potassium 5.3 mmol/L (3.5-5.1); Sodium 145 mmol/L (136-145)
--- NOTE | 2022-07-28 11:10 | XRR_ITS ---
PROCEDURE INFORMATION: Exam: XR Chest Exam date and time: 07/28/2022 11:20 AM Age: 82 years old Clinical indication: Cough and dyspnea; Additional info: Dyspnea/cough TECHNIQUE: Imaging protocol: Radiologic exam of the chest. Views: 1 view. COMPARISON: CR XR chest 1V [id number] 08/15/2021 12:53 PM FINDINGS: Lungs: Unremarkable. No consolidation. Pleural spaces: Unremarkable. No pleural effusion. No pneumothorax. Heart/Mediastinum: Unremarkable. No cardiomegaly. Bones/joints: Metallic orthopedic hardware is present in the cervical spine stable since prior XR/XR chest 1V portable [id number] IMPRESSION: 1. No acute findings. 2. Stable hardware cervical spine
--- NOTE | 2022-07-28 11:11 | W.ED.WEAKNES ---
HPI - Weakness General: Chief complaint: Weakness Stated complaint: rt lower back pain x 4 days Time Seen by Provider: 07/28/22 10:26 Source: patient Mode of arrival: ambulatory History of Present Illness: 82-year-old male presents emergency room with complaint of weakness and more specifically right lower back pain has had it for the last 4 days its worse when he moves better when he remains still. He was at the [facility] and was mildly hypotensive EMS was called he was given IV fluids in route and his blood pressures improved. On arrival he is 109/45 he is bradycardic. He is not having any chest pain. He denies any dysuria urgency or frequency he has some history of BPH for which he takes tamsulosin and finasteride. There is been no change recently denies any urinary retention or urinary incontinence. MD Complaint: generalized weakness Onset (ago): day(s) (4) Duration: intermittent Location: generalized Migration: none Severity: mild Relieving factors: none Exacerbating factors: none Associated symptoms: Denies chest pain, chills, confusion, melena, decreased appetite, diaphoresis, dysuria, easy bruising, fever(s), headache(s), myalgias, nausea, rash, short of breath, syncope or vomiting Review of Systems Const: Denies: fever(s), chills or diaphoresis ENMT: Denies: throat pain, ear or mastoid pain, nasal discharge or nasal congestion Card: Denies: chest pain or syncope Resp: Denies: dyspnea, productive cough or non-productive cough GI: Denies: nausea, vomiting or melena : Denies: dysuria Musc: Reports: back pain; Denies: extremity pain Skin/Breast: Denies: rash or pruritus Neuro: Denies: headache(s) or confusion Toño/Lymph: Denies: easy bruising PFSH ED PFSH: Medical History BPH NOS w ur obs/LUTS Chronic left shoulder pain Chronic low back pain Chronic right shoulder pain Encounter for long-term use of opiate analgesic Erectile dysfunction due to diseases classified elsewhere Hip replacement planned 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 Mother , at age 54 Stroke Other CAD (coronary artery disease) Cancer Lung disease Social History Smoking and tobacco status: never smoked Second hand smoke exposure: No Alcohol intake: never Substance/Drug Use: never Marital status: Current occupational status: retired Physical Exam Const: GENERAL APPEARANCE: cooperative ORIENTATION/CONSCIOUSNESS: Yes awake, Yes oriented to person, Yes oriented to place and Yes oriented to time HENMT: COMMON NORMALS: normocephalic, atraumatic and hearing grossly normal bilaterally HEAD & SCALP: normocephalic and atraumatic Resp: COMMON NORMALS: normal respiratory effort, No retractions, No use of accessory muscles and clear to auscultation bilaterally AUSCULTATION: clear to auscultation bilaterally Cardio: COMMON NORMALS: regular rate, regular rhythm and No murmurs present (Cardio) RATE: regular rate RHYTHM: regular rhythm GI: COMMON NORMALS: Soft to palpation and No hepatosplenomegaly present AUSCULTATION: Yes normoactive bowel sounds PALPATION: Yes Soft to palpation, No Tenderness to palpation present (GI), No Guarding due to palpation present (GI) and Yes No hepatosplenomegaly present : COMMON NORMALS: Yes no CVA tenderness BLADDER/KIDNEY EXAM: Yes no CVA tenderness Back/Pelvis: COMMON NORMALS: no CVA tenderness OTHER: Pain at the right SI joint in the right paraspinal at the L4-5 or level. Deep tendon reflexes +1/4 patellar tendon dorsum plantarflexion 5 of 5 Extremity: COMMON NORMALS: normal to inspection, capillary refill normal, no clubbing, cyanosis or edema, no calf tenderness and no pedal edema Neuro: SENSORIUM/ORIENTATION: Yes oriented to person, Yes oriented to place and Yes oriented to time Skin: COMMON NORMALS: no rashes or lesions noted GENERAL SKIN EXAM: no rashes or lesions noted Course Vital Signs: Vital signs: Vital Signs Temperature 98.2 F 07/28/22 10:29 Pulse Rate 60 07/28/22 13:49 Respiratory Rate 14 07/28/22 12:06 Blood Pressure 134/38 07/28/22 13:49 Pulse Oximetry 94 07/28/22 13:49 Oxygen Delivery Me thod Room Air 07/28/22 12:06 MDM - Weakness Medical Decision Making EKG and cardiac enzymes negative initial EKG showed some artifact follow-up EKGs were unremarkable discussed with Dr. Manzano. We will discharge patient home on steroids muscle relaxants and NSAIDs. Medical Records I reviewed the patient's medical records. Lab Data I reviewed the patient's lab results. 07/28/22 10:40 07/28/22 10:40 Radiology Impressions Chest X-Ray 07/28/22 11:10 IMPRESSION: 1. No acute findings. 2. Stable hardware cervical spine Laboratory Results WBC 5.9 10^3/uL (4.0-10.0) 07/28/22 10:40 RBC 2.91 10^6/uL (4.1-5.3) L 07/28/22 10:40 Hgb 9.4 g/dL (11.7-16.6) L 07/28/22 10:40 Hct 31.0 % (42.0-52.0) L 07/28/22 10:40 MCV 106.5 fl (80-94) H 07/28/22 10:40 MCH 32.3 pg (28.0-34.0) 07/28/22 10:40 MCHC 30.3 g/dL (30.0-36.0) 07/28/22 10:40 RDW 15.1 % (12.1-15.1) 07/28/22 10:40 Plt Count 140 10^3/cmm (130-400) 07/28/22 10:40 MPV 10.1 fL (7.4-10.4) 07/28/22 10:40 Neut % (Auto) 61.6 % 07/28/22 10:40 Lymph % (Auto) 19.8 % 07/28/22 10:40 Chase % (Auto) 9.8 % 07/28/22 10:40 Eos % (Auto) 8.3 % 07/28/22 10:40 Baso % (Auto) 0.3 % 07/28/22 10:40 Neut # (Auto) 3.65 10^3/uL (1.8-7.7) 07/28/22 10:40 Lymph # (Auto) 1.2 10^3/uL (0.8-4.8) 07/28/22 10:40 Chase # (Auto) 0.6 10^3/uL (0.2-0.9) 07/28/22 10:40 Eos # (Auto) 0.5 10^3/uL (0.0-0.8) 07/28/22 10:40 Baso # (Auto) 0.0 10^3/uL (0.0-0.1) 07/28/22 10:40 Nucleated RBC % (auto) 0 % 07/28/22 10:40 Nucleated RBCs # 0.0 /100WBC 07/28/22 10:40 Sodium 145 mmol/L (136-145) 07/28/22 10:40 Potassium 5.3 mmol/L (3.5-5.1) H 07/28/22 10:40 Chloride 111 mmol/L (98-107) H 07/28/22 10:40 Carbon Dioxide 25 mmol/L (22-29) 07/28/22 10:40 Anion Gap 14.3 (5-19) 07/28/22 10:40 BUN 62 mg/dL (8-23) H 07/28/22 10:40 Creatinine 1.4 mg/dL (0.7-1.2) H 07/28/22 10:40 GFR Calculation Not Reportable 07/28/22 10:40 Glucose 110 mg/dL (65-115) 07/28/22 10:40 Calculated Osmolality 318 mOsm/kg (285-295) H 07/28/22 10:40 Calcium 8.3 mg/dL (8.5-10.5) L 07/28/22 10:40 Troponin T Baseline 20 ng/L (0-15) H 07/28/22 10:40 Troponin T 120 Minute 18.38 ng/L (0-15) H 07/28/22 12:20 Delta Troponin T -1.62 ABS# (0-10) L 07/28/22 12:20 Urine Color Yellow (Yellow) 07/28/22 12:05 Urine Appearance Clear (CLEAR) 07/28/22 12:05 Urine pH 6.5 (5-7) 07/28/22 12:05 Ur Specific [place] 1.010 (1.005-1.030) 07/28/22 12:05 Urine Protein Neg (Negative) 07/28/22 12:05 Urine Glucose (UA) Norm (Normal) 07/28/22 12:05 Urine Ketones 1+ (Negative) H 07/28/22 12:05 Urine Blood Neg (Negative) 07/28/22 12:05 Urine Nitrate Negative (Negative) 07/28/22 12:05 Urine Bilirubin Neg (Negative) 07/28/22 12:05 Urine Urobilinogen Norm mg/dL (Negative) 07/28/22 12:05 Ur Leukocyte Esterase Negative (Negative) 07/28/22 12:05 Discharge Plan Discharge Patient Disposition: Home Clinical Impression: Lumbar strain Condition: Stable Prescriptions: New tizanidine 4 mg tablet 4 mg PO Q6H PRN (Reason: muscle spasticity) Qty: 20 0RF Rx Instructions: do not exceed 3 doses per 24 hrs diclofenac sodium 75 mg tablet,delayed release (DR/EC) 75 mg PO Q12H PRN (Reason: pain) Qty: 20 0RF No Action olopatadine [Pataday] 0.2 % drops 1 drop ophthalmic (eye) DAILY@0900 albuterol sulfate 90 mcg/actuation aerosol powdr breath activated 2 inh INHALATION Q6H PRN (Reason: Shortness Of Breath) sildenafil 100 mg tablet 100 mg PO DAILY PRN (Reason: sexual activity) Qty: 20 12RF Rx Instructions: 1 hour before intercourse on empty stomach. NO NITROGLYCERIN! loratadine [Allergy Relief (loratadine)] 10 mg tablet 10 mg PO DAILY tamsulosin [Flomax] 0.4 mg capsule 0.4 mg PO DAILY@2100 finasteride 5 mg tablet 5 mg PO DAILY@0900 allopurinol 300 mg tablet 300 mg PO DAILY@0900 omeprazole 20 mg tablet,delayed release (DR/EC) 20 mg PO DAILY@0900 multivitamin Tablet 1 tab PO DAILY@0900 cholecalciferol (vitamin D3) 1,250 mcg (50,000 unit) capsule 1,250 mcg PO DAILY@0900 ascorbate calcium (vitamin C) 500 mg tablet 500 mg PO DAILY@0900 aspirin [Adult Aspirin Regimen] 81 mg tablet,delayed release (DR/EC) 81 mg PO DAILY@0900 docusate sodium [Colace] 100 mg capsule 100 mg PO BID PRN (Reason: Constipation) diphenoxylate-atropine [Lomotil] 2.5-0.025 mg tablet 1 tab PO QID PRN (Reason: Diarrhea) garlic 1,000 mg capsule 2,000 mg PO DAILY@0900 lutein 20 mg capsule 20 mg PO DAILY@0900 melatonin 3 mg capsule 3 mg PO BEDTIME@2300 PRN (Reason: Insomnia) alendronate [Fosamax] 70 mg tablet 70 mg PO Q7D Rx Instructions: take on Sunday vitamin B complex [B Complex-Vitamin B12] Tablet 1 tab PO DAILY@0900 cod liver oil Capsule 1 cap PO DAILY@0900 ICaps AREDS2 (copper citrate) 250 mg-200 unit -12.5 mg-1 mg tablet 1 tab PO BID@0900,2100 vitamin A 8,000 unit capsule 8,000 unit PO DAILY@0900 timolol 0.25 % drops 1 drp ophthalmic (eye) DAILY gabapentin 600 mg tablet 600 mg PO QID@09,13,17,21 acetaminophen [Tylenol] 325 mg Tablet 325 - 650 mg PO QID PRN (Reason: Pain) Eylea 2 mg/0.05 mL Syringe See Rx Instructions .ROUTE .COMPLEX Rx Instructions: mg intravitreal at eye doctor every 5-6 weeks atorvastatin 40 mg tablet 40 mg PO BEDTIME clopidogrel 75 mg tablet 75 mg PO DAILY metoprolol succinate 25 mg tablet extended release 24 hr 12.5 mg PO DAILY lisinopril 2.5 mg tablet 2.5 mg PO DAILY diclofenac sodium 1 % gel 1 ea TOPICAL BID oxycodone 20 mg tablet See Rx Instructions .ROUTE .COMPLEX Rx Instructions: 20 mg orally 5 times daily - max of 100 mg daily nitroglycerin 0.4 mg Tablet, Sublingual 0.4 mg SUBLINGUAL Q5M PRN (Reason: Chest Pain) Rx Instructions: do not exceed 3 doses per episode Discharge Orders: Discharge ED (Routine); Ordered 07/28/22 Ordered By: Rico Ashley Referrals: Celeste Keane DO [Primary Care Provider] - Discharge Diet: Usual diet Discharge Activity: Increase activity as tolerated Patient Instructions: Acute Low Back Pain (ED), Opioid Safety, Pain Management Coding Level of Care Code ED Product Management Consultant for Haily Canas
[2022-07-28 11:19] LABS: Troponin(5th) Baseline 20 ng/L (0-15)
[2022-07-28 11:25] VITALS: RESP 14; O2SAT 96
[2022-07-28] MEDS: dexamethasone 10 mg/mL INJ IVP (11:25)
[2022-07-28] MEDS: morphine 4 mg/mL SDV 1 mL 2 MG IVP (11:25)
--- NOTE | 2022-07-28 11:26 | ECG_ITS ---
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 Measurements Intervals [place] Rate: 55 P: 19 TX: 306 QRS: 20 QRSD: 88 T: 37 QT: 410 QTc: 394 Interpretive Statements SINUS BRADYCARDIA WITH FIRST DEGREE AV BLOCK Compared to ECG 07/28/2022 10:44:47 ST (T wave) deviation no longer present Myocardial infarct finding no longer present Electronically Signed On 07-28-2022 11:27:39 CDT by Mayo Bates M.D. [id number]
[2022-07-28] MEDS: sodium chloride 0.9% 1,000 ML 999 ML IV (11:48)
[2022-07-28 12:06] VITALS: BP 109/45; PULSE 56; RESP 14; O2SAT 98
[2022-07-28 12:15] LABS: Add Urine Microscopic? NO; Charge for UA Resulting for Rev
[2022-07-28 12:30] LABS: Protein Urine Neg (Negative); Urine Appearance Clear (CLEAR); Urine Color Yellow (Yellow); pH Urine 6.5 (5-7)
[2022-07-28 12:31] LABS: Bilirubin Urine Neg (Negative); Blood Urine Neg (Negative); Glucose Urine UA Norm (Normal); Ketones Urine 1+ (Negative); Leukocyte Esterase Urine Negative (Negative); Nitrate Urine Negative (Negative); Urobilinogen Urine Norm (Negative)
[2022-07-28 12:44] LABS: Troponin 5 2HR 18.38 ng/L (0-15)
[2022-07-28 12:45] LABS: Troponin 5 2HR Delta -1.62 ABS# (0-10)
--- NOTE | 2022-07-28 13:10 | ECG_ITS ---
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 Measurements Intervals [place] Rate: 54 P: 51 CO: 338 QRS: 29 QRSD: 89 T: 45 QT: 419 QTc: 400 Interpretive Statements SINUS BRADYCARDIA WITH FIRST DEGREE AV BLOCK Compared to ECG 07/28/2022 11:26:44 No significant changes Electronically Signed On 07-28-2022 13:31:31 CDT by Kristi Mariee M.D. [id number]
[2022-07-28 13:30] VITALS: BP 108/53; PULSE 55; O2SAT 94
[2022-07-28 13:49] VITALS: BP 134/38; PULSE 60; O2SAT 94
--- NOTE | 2022-07-28 16:52 | P.CONIM_ITS ---
Providers/Reason For Consult Consulting Physician/Specialty*: Mayo Bates MD/ Cardiology Reason for Consult*: EKG changes Requesting Physician: Dr Ashley Attending Physician: Dr Ashley Primary Care Provider: Celeste Keane DO History of Present Illness History of Present Illness Bear Carballo is a 82 year old male with prior history of CAD according to patient who presented with right lower back pain. Also feels weak. Cardiology was called as patient has an EKG with questionable inferior leads ST T wave changes. He denies chest pain. No significant shortness of breath. EKG is not consistent with ST elevation [place]. Review of Systems Const: Denies: fever(s), chills or diaphoresis ENMT: Denies: throat pain, ear or mastoid pain, nasal discharge or nasal congestion Card: Denies: chest pain or syncope Resp: Denies: dyspnea, productive cough or non-productive cough GI: Denies: nausea, vomiting or melena : Denies: dysuria Musc: Reports: back pain; Denies: extremity pain Skin/Breast: Denies: rash or pruritus Neuro: Denies: headache(s) or confusion Toño/Lymph: Denies: easy bruising Medications/Allergies Home Medications Medication Instructions Recorded Confirmed Last Taken Type alendronate 70 mg tablet (Fosamax) 70 mg PO Q7D 03/14/19 07/28/22 07/25/22 History allopurinol 300 mg tablet 300 mg PO DAILY@89903/14/19 07/28/22 07/28/22 History ascorbate calcium (vitamin C) 500 500 mg PO DAILY@89903/14/19 07/28/22 07/28/22 History mg tablet aspirin 81 mg tablet,delayed 81 mg PO DAILY@89903/14/19 07/28/22 07/28/22 History release (Adult Aspirin Regimen) cholecalciferol (vitamin D3) 1,250 1,250 mcg PO DAILY@89903/14/19 07/28/22 07/28/22 History mcg (50,000 unit) capsule cod liver oil 1 cap PO DAILY@89903/14/19 07/28/22 07/28/22 History diphenoxylate-atropine 2.5 1 tab PO QID PRN Diarrhea 03/14/19 07/28/22 Unknown History mg-0.025 mg tablet (Lomotil) docusate sodium 100 mg capsule 100 mg PO BID PRN Constipation 03/14/19 07/28/22 Unknown History (Colace) finasteride 5 mg tablet 5 mg PO DAILY@89903/14/19 07/28/22 07/28/22 History garlic 1,000 mg capsule 2,000 mg PO DAILY@89903/14/19 07/28/22 07/28/22 Histor y lutein 20 mg capsule 20 mg PO DAILY@89903/14/19 07/28/22 07/28/22 History melatonin 3 mg capsule 3 mg PO BEDTIME@2300 PRN Insomnia 03/14/19 07/28/22 07/27/22 History multivitamin 1 tab PO DAILY@89903/14/19 07/28/22 07/28/22 History omeprazole 20 mg tablet,delayed 20 mg PO DAILY@89903/14/19 07/28/22 07/28/22 History release tamsulosin 0.4 mg capsule (Flomax) 0.4 mg PO DAILY@209903/14/19 07/28/22 07/27/22 History vit C 250 mg-vit E 200 unit-zinc 1 tab PO BID@0900,209903/14/19 07/28/22 07/28/22 History 12.5 mg-copper 1 [id number] tablet (ICaps AREDS2 (copper citrate)) vitamin A 2,400 mcg capsule 8,000 unit PO DAILY@89903/14/19 07/28/22 07/28/22 History vitamin B complex (B 1 tab PO DAILY@89903/14/19 07/28/22 07/28/22 History Complex-Vitamin B12 tablet) albuterol sulfate 90 mcg/actuation 2 inh inhalation Q6H PRN Shortness 08/04/19 07/28/22 Unknown History breath activated powder inhaler Of Breath olopatadine 0.2 % eye drops 1 drop ophthalmic (eye) DAILY@89908/04/19 07/28/22 07/28/22 History (Pataday) acetaminophen 325 mg tablet 325 - 650 mg PO QID PRN Pain 02/19/20 07/28/22 02/19/20 History (Tylenol) gabapentin 600 mg tablet 600 mg PO QID@,17,21 02/19/20 07/28/22 07/28/22 History sildenafil 100 mg tablet 100 mg PO DAILY PRN sexual 08/03/20 07/28/22 Unknown Rx activity #20 tabs loratadine 10 mg tablet (Allergy 10 mg PO DAILY 11/11/20 07/28/22 07/28/22 History Relief (loratadine)) timolol 0.25 % eye drops 1 drp ophthalmic (eye) DAILY 01/12/22 07/28/22 Unknown History aflibercept 2 mg/0.05 mL See Rx Instructions .Route .COMPLEX 07/28/22 07/28/22 Unknown History intravitreal syringe (Eylea) atorvastatin 40 mg tablet 40 mg PO BEDTIME 07/28/22 07/28/22 07/27/22 History clopidogrel 75 mg tablet 75 mg PO DAILY 07/28/22 07/28/22 07/28/22 History diclofenac sodium 1 % topical gel 1 ea topical BID 07/28/22 07/28/22 Unknown History diclofenac sodium 75 mg 75 mg PO Q12H PRN pain #20 tabs 07/28/22 Unknown Rx tablet,delayed release lisinopril 2.5 mg tablet 2.5 mg PO DAILY 07/28/22 07/28/22 07/28/22 History metoprolol succinate 25 mg 12.5 mg PO DAILY 07/28/22 07/28/22 07/28/22 History tablet,extended release 24 hr nitroglycerin 0.4 mg sublingual 0.4 mg sublingual Q5M PRN Chest 07/28/22 07/28/22 Unknown History tablet Pain oxycodone 20 mg tablet See Rx Instructions .Route .COMPLEX 07/28/22 07/28/22 07/28/22 History tizanidine 4 mg tablet 4 mg PO Q6H PRN muscle spasticity 07/28/22 Unknown Rx #20 tabs Allergies Allergy/AdvReac Type Severity Reaction Status Date / Time Iodinated Contrast Media Allergy Mild ALGY-Hives Verified 07/28/22 12:56 adhesive tape Allergy ALGY-Rash Verified 07/28/22 12:56 diphenhydramine Allergy ALGY-Hives Verified 07/28/22 12:56 [From Benadryl] hydrocodone Allergy ADR-Itching Verified 07/28/22 12:56 latex Allergy ALGY-Rash Verified 07/28/22 12:56 Penicillins Allergy ALGY-Rash Verified 07/28/22 12:56 povidone-iodine Allergy ALGY-Rash Verified 07/28/22 12:58 [From Betadine] sulfabenzamide Allergy ALGY-Hives Verified 07/28/22 12:56 tetanus toxoid, adsorbed Allergy ALGY-Rash Verified 07/28/22 12:56 zolpidem [From Ambien] Allergy Unknown Verified 07/28/22 12:56 PFSH Acute PFSH: Medical History BPH NOS w ur obs/LUTS Chronic left shoulder pain Chronic low back pain Chronic right shoulder pain Encounter for long-term use of opiate analgesic Erectile dysfunction due to diseases classified elsewhere Hip replacement planned 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 Mother , at age 54 Stroke Other CAD (coronary artery disease) Cancer Lung disease Social History Smoking and tobacco status: never smoked Second hand smoke exposure: No Alcohol intake: never Substance/Drug Use: never Marital status: Current occupational status: retired Vitals/I&O/Wt Last Vital Signs Temp 98.2 F 07/28/22 10:29 Pulse 60 07/28/22 13:49 Resp 14 07/28/22 12:06 BP 134/38 07/28/22 13:49 Pulse Ox 94 07/28/22 13:49 O2 Del Method Room Air 07/28/22 12:06 Weight last 48 hrs Weight 150 lb Physical Exam Narrative: GENERAL: Patient is alert, awake and oriented x3. [] NECK: No jugular vein distension. [] HEENT: No cyanosis. No icterus. No pallor. [] HEART: Regular S1 and S2 grade 2/6 systolic murmur LUNGS: Clear to auscultate bilaterally. [] ABDOMEN: Soft CENTRAL NERVOUS SYSTEM: Grossly nonfocal. [] EXTREMITIES: Lower extremities with 1+ edema bilaterally. Data 07/28/22 10:40 07/28/22 10:40 A&P Assessment and plan (1) ST segment changes on electrocardiogram: Plan Patient has prior CAD history. EKG changes are not consistent with ST elevation [place]. Repeat EKG in 5 to 10 minutes. Trend troponins. No indication for Communication Instructor activation at this time. If troponin trend is normal, he can follow as outpatient. Lower back pain workup per ER team Thank you for involving us with care of this patient. Please call with questions. Consult Attestations Medical Necessity Statement: Care not expected to cross 2 midnights. Coding Level of Care Code Acute Code for Chg Fwd Diagnoses ST segment changes on electrocardiogram R94.31
== END 2022-07-28 13:51 | disposition home or self-care (01) ==
PROVIDERS: Emergency Provider Family Medicine; PCP Family Medicine
DX: S39.012A Strain of muscle, fascia and tendon of lower back, initial encounter (principal); X58.XXXA Exposure to other specified factors, initial encounter; R00.1 Bradycardia, unspecified
CPT/HCPCS: 36415; 71045; 80048; 81003; 84484; 85025; 93005; 96361; 96374; 96375; 99285; J1100; J2270; J7030

== ENCOUNTER 2022-08-07 10:25 | Outpatient (RCR) | payer MEDICARE, SELFPAY | END 2022-09-04 23:59 | disposition home or self-care (01) | LOC: CR 10:25 | PROVIDERS: PCP Family Medicine; Referring Provider Family Medicine; Visit Provider Family Medicine | DX: Z95.5 Presence of coronary angioplasty implant and graft (principal) | CPT/HCPCS: 93798 ==

== ENCOUNTER → 2022-08-17 13:30 | Outpatient (BNVA) | payer MEDICARE, SELFPAY | PROVIDERS: PCP Family Medicine; Visit Provider Anesthesiology Pain Medicine | DX: G89.29 Other chronic pain (principal); M54.16 Radiculopathy, lumbar region | CPT/HCPCS: 64483; 64484; J1100; J3490 ==

== ENCOUNTER → 2022-09-07 12:52 | Outpatient (BNVA) | payer MEDICARE, SELFPAY | PROVIDERS: PCP Family Medicine; Visit Provider Podiatrist Foot & Ankle Surgery | DX: L60.8 Other nail disorders (principal); D64.9 Anemia, unspecified; I73.9 Peripheral vascular disease, unspecified; L60.3 Nail dystrophy; L84 Corns and callosities; Q66.71 Congenital pes cavus, right foot; Q66.72 Congenital pes cavus, left foot | CPT/HCPCS: 11056; 11721 ==

== ENCOUNTER 2022-10-11 15:00 | Outpatient (RCR) | payer SELFPAY | END 2022-11-04 23:59 | disposition home or self-care (01) | LOC: CR 15:00 | PROVIDERS: PCP Family Medicine; Referring Provider Family Medicine; Visit Provider Family Medicine | DX: Z55.5 Less than a high school diploma (principal) ==

== ENCOUNTER → 2022-10-30 09:31 | Outpatient (BNVA) | payer MEDICARE, SELFPAY | PROVIDERS: PCP Family Medicine; Visit Provider Anesthesiology Pain Medicine | DX: G89.29 Other chronic pain (principal); M50.90 Cervical disc disorder, unspecified, unspecified cervical region; M25.511 Pain in right shoulder; M25.512 Pain in left shoulder; M47.812 Spondylosis without myelopathy or radiculopathy, cervical region; Z98.1 Arthrodesis status; M54.12 Radiculopathy, cervical region; M96.1 Postlaminectomy syndrome, not elsewhere classified | CPT/HCPCS: 99214 ==

== ENCOUNTER 2022-11-06 08:53 | Outpatient (RCR) | payer SELFPAY | END 2022-12-05 23:59 | disposition home or self-care (01) | LOC: CR 08:53 | PROVIDERS: PCP Family Medicine; Referring Provider Family Medicine; Visit Provider Family Medicine | DX: Z95.5 Presence of coronary angioplasty implant and graft (principal) ==

== ENCOUNTER 2022-12-06 11:02 | Outpatient (RCR) | payer SELFPAY | END 2023-01-04 23:59 | disposition home or self-care (01) | LOC: CR 11:02 | PROVIDERS: PCP Family Medicine; Referring Provider Family Medicine; Visit Provider Family Medicine | DX: I25.10 Atherosclerotic heart disease of native coronary artery without angina pectoris (principal); I21.4 Non-ST elevation (NSTEMI) myocardial infarction ==

== ENCOUNTER 2022-12-07 08:27 | Outpatient (RCR) | payer SELFPAY | END 2023-01-04 23:59 | disposition home or self-care (01) | LOC: CR 08:27 | PROVIDERS: PCP Family Medicine; Referring Provider Family Medicine; Visit Provider Family Medicine | DX: I73.9 Peripheral vascular disease, unspecified (principal); Z95.5 Presence of coronary angioplasty implant and graft; L60.3 Nail dystrophy; D64.9 Anemia, unspecified; Q66.71 Congenital pes cavus, right foot; Q66.72 Congenital pes cavus, left foot | CPT/HCPCS: 11721 ==

== ENCOUNTER → 2022-12-18 12:57 | Outpatient (BNVA) | payer MEDICARE, SELFPAY | PROVIDERS: PCP Family Medicine; Visit Provider Anesthesiology Pain Medicine | DX: M54.16 Radiculopathy, lumbar region (principal); G89.29 Other chronic pain | CPT/HCPCS: 64483; 64484 ==

== ENCOUNTER 2023-01-09 14:58 | Emergency (ER) | payer MEDICARE, SELFPAY ==
[2023-01-09] VITALS (7 sets, daily range): BP systolic 108–135; BP diastolic 60–86; PULSE 68–107; RESP 18; TEMP 36.9; O2SAT 92–98; BMI 24.2
--- NOTE | 2023-01-09 15:19 | XRR_ITS ---
PROCEDURE INFORMATION: Exam: XR Chest Exam date and time: 01/09/2023 3:29 PM Age: 82 years old Clinical indication: Chest wall pain; Additional info: Chest pain TECHNIQUE: Imaging protocol: Radiologic exam of the chest. Views: 1 view. COMPARISON: CR XR chest 1V portable [id number] 07/28/2022 11:20 AM FINDINGS: Lungs: Unremarkable. No consolidation. Pleural spaces: Unremarkable. No pleural effusion. No pneumothorax. Heart/Mediastinum: Unremarkable. No cardiomegaly. Bones/joints: Anterior cervical fusion. XR/XR chest 1V portable [id number] IMPRESSION: No acute findings.
[2023-01-09] MEDS: aspirin 81 mg Chew Tablet 324 MG PO (15:36)
[2023-01-09 15:44] LABS: Basophils % 0.6 %; Eosinophils # 0.1 10^3/uL (0.0-0.8); Eosinophils % 2.2 %; Hematocrit 40.8 % (37-53); Lymphocytes # 1.3 10^3/uL (0.8-4.8); Lymphocytes % 23.9 %; Mean Corpuscular HGB Conc 31.6 g/dL (30-55); Mean Corpuscular Hemoglobin 30.4 pg (27-33); Mean Corpuscular Volume 96.2 fl (82-101); Mean Platelet Volume 9.8 fL (7.4-10.4); Monocytes # 0.5 10^3/uL (0.2-0.9); Neutrophils % 62.9 %; Nucleated Red Blood Cells % 0 %; Platelet Count 196 10^3/cmm (157-399); Red Blood Count 4.24 10^6/uL (3.85-5.65); Red Cell Distribution Width 14.5 % (12.1-15.1)
--- NOTE | 2023-01-09 15:44 | ED_ITS ---
Documented by User: Rico Ashley DO 01/14/23 17:09 HPI - Chest Pain 2 General: Chief Complaint: Chest Pain Stated Complaint: chest pain,left eye pain Time Seen by Provider: 01/09/23 15:19 Source: patient Mode of arrival: ambulatory History of Present Illness: 82-year-old male presents emergency room with complaint of chest discomfort that he had yesterday. He is not having any discomfort now no shortness of breath nausea vomiting or diaphoresis associated with it. He does have a known history of coronary disease had stents placed on February 05 of this year. He does not report anything and particularly exacerbated or relieved the problem. MD complaint: chest pain Pertinent past history: coronary artery disease Onset (ago): day(s) Timing of current episode: episodic Prior episodes: Yes Pain location: substernal Pain radiation: none Severity: mild Quality: aching and heaviness Relieving factors: nothing Exacerbating factors: nothing Associated symptoms: Deny abdominal pain, diaphoresis, dyspnea, fever(s), leg edema, nausea, palpitations, sense of impending doom, syncope or vomiting Treatment prior to arrival: none Review of Systems 2 Const: Denies: fever(s) or diaphoresis Card: Denies: palpitations or syncope Resp: Denies: dyspnea GI: Denies: abdominal pain, nausea or vomiting : Denies: dysuria, urinary frequency or urinary urgency Musc: Denies: neck pain or back pain Skin/Breast: Denies: rash PFSH ED 2 PFSH: Medical History Chronic right shoulder pain Erectile dysfunction due to diseases classified elsewhere BPH NOS w ur obs/LUTS Hip replacement planned 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 Mother , at age 54 Stroke Other CAD (coronary artery disease) Cancer Lung disease Social History Smoking and tobacco/nicotine status: never used tobacco/nicotine Second hand smoke exposure: No Alcohol intake: never Substance/Drug Use: never Marital status: Current occupational status: retired Physical Exam 2 Const: COMMON NORMALS: no acute distress GENERAL APPEARANCE: cooperative and comfortable ORIENTATION/CONSCIOUSNESS: Yes awake, Yes oriented to person, Yes oriented to place and Yes oriented to time HENMT: COMMON NORMALS: normocephalic, atraumatic and hearing grossly normal bilaterally HEAD & SCALP: normocephalic and atraumatic Resp: COMMON NORMALS: normal respiratory effort, No retractions, No use of accessory muscles and clear to auscultation bilaterally AUSCULTATION: clear to auscultation bilaterally Cardio: COMMON NORMALS: regular rate, regular rhythm and No murmurs present (Cardio) RATE: regular rate RHYTHM: regular rhythm GI: COMMON NORMALS: Soft to palpation and No hepatosplenomegaly present A USCULTATION: Yes normoactive bowel sounds PALPATION: Yes Soft to palpation, No Tenderness to palpation present (GI), No Guarding due to palpation present (GI) and Yes No hepatosplenomegaly present Extremity: COMMON NORMALS: normal to inspection, capillary refill normal, no clubbing, cyanosis or edema, no calf tenderness and no pedal edema Neuro: SENSORIUM/ORIENTATION: Yes oriented to person, Yes oriented to place and Yes oriented to time Skin: COMMON NORMALS: no rashes or lesions noted GENERAL SKIN EXAM: no rashes or lesions noted Course 2 Vital Signs: Vital signs: Vital Signs Temperature 98.4 F 01/09/23 19:59 Pulse Rate 107 H 01/09/23 19:59 Respiratory Rate 18 01/09/23 19:59 Blood Pressure 108/60 01/09/23 19:59 Pulse Oximetry 98 01/09/23 19:59 Oxygen Delivery Me thod Room Air 01/09/23 18:30 MDM - Chest Pain Medical Decision Making Care signed out to Dr. Noguera at change of shift. See final notes for diagnosis and disposition. I received off going report from Dr. Ashley patient was reevaluated and I advised him that we are waiting for second cardiac enzyme I did review his second twelve-lead EKG that was obtained at 1508 which demonstrates underlying sinus rhythm with an occasional PAC and a first-degree AV block. Ventricular rate is 79 bpm. QRS duration 74 QT 361 QTc [address] elevation or depression to demonstrate acute ischemia or infarction at present. Lab Data 01/09/23 15:29 01/09/23 15:29 Radiology Impressions Chest X-Ray 01/09/23 15:19 IMPRESSION: No acute findings. Laboratory Results WBC 5.40 10^3/uL (3.29-11.43) 01/09/23 15: RBC 4.24 10^6/uL (3.85-5.65) 01/09/23 15: Hgb 12.90 g/dL (11.27-16.99) 01/09/23 15: Hct 40.8 % (37-53) 01/09/23 15: MCV 96.2 fl (82-101) 01/09/23 15: MCH 30.4 pg (27-33) 01/09/23 15: MCHC 31.6 g/dL (30-55) 01/09/23 15: RDW 14.5 % (12.1-15.1) 01/09/23 15: Plt Count 196 10^3/cmm (157-399) 01/09/23 15: MPV 9.8 fL (7.4-10.4) 01/09/23 15: Neut % (Auto) 62.9 % 01/09/23 15: Lymph % (Auto) 23.9 % 01/09/23 15: Mcpherson % (Auto) 10.0 % 01/09/23 15: Eos % (Auto) 2.2 % 01/09/23 15:29 Baso % (Auto) 0.6 % 01/09/23: Neut # (Auto) 3.40 10^3/uL (1.8-7.7) 01/09/23: Lymph # (Auto) 1.3 10^3/uL (0.8-4.8) 01/09/23 15: Mcpherson # (Auto) 0.5 10^3/uL (0.2-0.9) 01/09/23 15:29 Eos # (Auto) 0.1 10^3/uL (0.0-0.8) 01/09/23 15: Baso # (Auto) 0.0 10^3/uL (0.0-0.1) 01/09/23 15: Nucleated RBC % (auto) 0 % 01/09/23 15: Nucleated RBCs # 0.0 /100WBC 01/09/23 15:29 Sodium 144 mmol/L (136-145) 01/09/23 15: Potassium 4.0 mmol/L (3.5-5.1) 01/09/23 15: Chloride 107 mmol/L (98-107) 01/09/23 15: Carbon Dioxide 26 mmol/L (22-29) 01/09/23 15: Anion Gap 15.0 (5-19) 01/09/23 15: BUN 27 mg/dL (8-23) H 01/09/23 15: Creatinine 1.0 mg/dL (0.7-1.2) 01/09/23 15: GFR Calculation Not Reportable 01/09/23 15: Glucose 114 mg/dL (65-115) 01/09/23 15:29 Calculated Osmolality 304 mOsm/kg (285-295) H 01/09/23 15: Calcium 9.5 mg/dL (8.5-10.5) 01/09/23 15: Total Bilirubin 0.4 mg/dL (0.15-1.2) 01/09/23 15: AST 16 U/L (0-40) 01/09/23 15: ALT 15 U/L (0-41) 01/09/23 15: Alkaline Phosphatase 78 U/L (40-130) 01/09/23 15:29 Troponin T Baseline 21 ng/L (0-15) H 01/09/23 15:29 Troponin T 120 Minute 20.02 ng/L (0-15) H 01/09/23 17:29 Delta Troponin T -0.98 ABS# (0-10) L 01/09/23 17: Total Protein 7.0 g/dL (6.6-8.7) 01/09/23 15: Albumin 4.3 g/dL (3.5-5.2) 01/09/23 15: Globulin 2.7 g/dL (1.3-4.6) 01/09/23 15:29 Discharge Plan Discharge Patient Disposition: Home Clinical Impression: Atypical chest pain Condition: Stable Prescriptions: No Action albuterol sulfate 90 mcg/actuation aerosol powdr breath activated 2 inh INHALATION Q6H PRN (Reason: Shortness Of Breath) sildenafil 100 mg tablet 100 mg PO DAILY PRN (Reason: sexual activity) Qty: 20 12RF Rx Instructions: 1 hour before intercourse on empty stomach. NO NITROGLYCERIN! loratadine [Allergy Relief (loratadine)] 10 mg tablet 10 mg PO DAILY tamsulosin [Flomax] 0.4 mg capsule 0.4 mg PO DAILY@2100 finasteride 5 mg tablet 5 mg PO DAILY@0900 allopurinol 300 mg tablet 300 mg PO DAILY@0900 omeprazole 20 mg tablet,delayed release (DR/EC) 20 mg PO BID multivitamin Tablet 1 tab PO DAILY@0900 cholecalciferol (vitamin D3) 1,250 mcg (50,000 unit) capsule 1,250 mcg PO DAILY@0900 ascorbate calcium (vitamin C) 500 mg tablet 500 mg PO DAILY@0900 aspirin [Adult Aspirin Regimen] 81 mg tablet,delayed release (DR/EC) 81 mg PO DAILY@0900 docusate sodium [Colace] 100 mg capsule 100 mg PO BID PRN (Reason: Constipation) diphenoxylate-atropine [Lomotil] 2.5-0.025 mg tablet 1 tab PO QID PRN (Reason: Diarrhea) garlic 1,000 mg capsule 2,000 mg PO DAILY@0900 lutein 20 mg capsule 20 mg PO DAILY@0900 melatonin 3 mg capsule 3 mg PO BEDTIME@2300 PRN (Reason: Insomnia) alendronate [Fosamax] 70 mg tablet 70 mg PO Q7D Rx Instructions: take on Sunday vitamin B complex [B Complex-Vitamin B12] Tablet 1 tab PO DAILY@0900 cod liver oil Capsule 1 cap PO DAILY@0900 ICaps AREDS2 (copper citrate) 250 mg-200 unit -12.5 mg-1 mg tablet 1 tab PO BID@0900,2100 vitamin A 8,000 unit capsule 8,000 unit PO DAILY@0900 timolol 0.25 % drops 1 drp ophthalmic (eye) DAILY gabapentin 600 mg tablet 600 mg PO QID@09,,17,21 acetaminophen [Tylenol] 325 mg Tablet 325 - 650 mg PO QID PRN (Reason: Pain) Eylea 2 mg/0.05 mL Syringe See Rx Instructions .ROUTE .COMPLEX Rx Instructions: mg intravitreal at eye doctor every 5-6 weeks atorvastatin 40 mg tablet 40 mg PO BEDTIME clopidogrel 75 mg tablet 75 mg PO DAILY metoprolol succinate 25 mg tablet extended release 24 hr 12.5 mg PO DAILY lisinopril 2.5 mg tablet 2.5 mg PO DAILY oxycodone 20 mg tablet See Rx Instructions .ROUTE .COMPLEX Rx Instructions: 20 mg orally 5 times daily - max of 100 mg daily nitroglycerin 0.4 mg Tablet, Sublingual 0.4 mg SUBLINGUAL Q5M PRN (Reason: Chest Pain) Rx Instructions: do not exceed 3 doses per episode tizanidine 4 mg tablet 4 mg PO Q6H PRN (Reason: muscle spasticity) Qty: 20 0RF Rx Instructions: do not exceed 3 doses per 24 hrs diclofenac sodium 75 mg tablet,delayed release (DR/EC) 75 mg PO Q12H PRN (Reason: pain) Qty: 20 0RF Pataday 0.2 % Drops 1 drp OPHTHALMIC (EYE) DAILY@0900 Discharge Orders: Discharge ED (Routine); Ordered 01/09/23 Ordered By: Chase Noguera Referrals: Celeste Keane DO [Primary Care Provider] - Discharge Diet: Advance as tolerated Discharge Activity: Resume usual activity Patient Instructions: Opioid Safety, Pain Management Activity Restrictions/Additional Instructions: Activity Restrictions/Additional Instructions: Thank you for choosing [facility] for your healthcare needs today. Please realize that you were seen in the Emergency Department and that we are providing you with an emergency medical screening exam and this may not be a complete and all inclusive of all the testing and or medical work-up that you may need to determine your ailment or severity of your illness. It is very important that you follow-up as instructed with your Primary care provider or Specialist for additional evaluation and to discuss your medical treatment plan. You may return to the Emergency Department should you have concerns or if your condition changes or worsens in any way. 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 Mother , at age 54 Stroke Other CAD (coronary artery disease) Cancer Lung disease Social History Smoking and tobacco/nicotine status: never used tobacco/nicotine Second hand smoke exposure: No Alcohol intake: never Substance/Drug Use: never Marital status: Current occupational status: retired Course 2 Vital Signs: Vital signs: Vital Signs Temperature 98.4 F 01/09/23 19:59 Pulse Rate 107 H 01/09/23 19:59 Respiratory Rate 18 01/09/23 19:59 Blood Pressure 108/60 01/09/23 19:59 Pulse Oximetry 98 01/09/23 19:59 Oxygen Delivery Me thod Room Air 01/09/23 18:30 MDM - Chest Pain Medical Decision Making I received off going report from Dr. Ashley patient was reevaluated and I advised him that we are waiting for second cardiac enzyme I did review his second twelve-lead EKG that was obtained at 1508 which demonstrates underlying sinus rhythm with an occasional PAC and a first-degree AV block. Ventricular rate is 79 bpm. QRS duration 74 QT 361 QTc [address] elevation or depression to demonstrate acute ischemia or infarction at present. Medical Records I reviewed the patient's medical records. Lab Data I reviewed the patient's lab results. 01/09/23 15:29 01/09/23 15:29 Radiology Impressions Chest X-Ray 01/09/23 15:19 IMPRESSION: No acute findings. Laboratory Results WBC 5.40 10^3/uL (3.29-11.43) 01/09/23 15: RBC 4.24 10^6/uL (3.85-5.65) 01/09/23 15: Hgb 12.90 g/dL (11.27-16.99) 01/09/23 15: Hct 40.8 % (37-53) 01/09/23 15: MCV 96.2 fl (82-101) 01/09/23 15: MCH 30.4 pg (27-33) 01/09/23 15: MCHC 31.6 g/dL (30-55) 01/09/23 15: RDW 14.5 % (12.1-15.1) 01/09/23 15: Plt Count 196 10^3/cmm (157-399) 01/09/23 15: MPV 9.8 fL (7.4-10.4) 01/09/23 15: Neut % (Auto) 62.9 % 01/09/23 15: Lymph % (Auto) 23.9 % 01/09/23 15: Mcpherson % (Auto) 10.0 % 01/09/23 15: Eos % (Auto) 2.2 % 01/09/23 15:29 Baso % (Auto) 0.6 % 01/09/23 15: Neut # (Auto) 3.40 10^3/uL (1.8-7.7) 01/09/23: Lymph # (Auto) 1.3 10^3/uL (0.8-4.8) 01/09/23 15: Mcpherson # (Auto) 0.5 10^3/uL (0.2-0.9) 01/09/23 15:29 Eos # (Auto) 0.1 10^3/uL (0.0-0.8) 01/09/23 15: Baso # (Auto) 0.0 10^3/uL (0.0-0.1) 01/09/23 15: Nucleated RBC % (auto) 0 % 01/09/23 15: Nucleated RBCs # 0.0 /100WBC 01/09/23 15:29 Sodium 144 mmol/L (136-145) 01/09/23 15: Potassium 4.0 mmol/L (3.5-5.1) 01/09/23 15: Chloride 107 mmol/L (98-107) 01/09/23 15: Carbon Dioxide 26 mmol/L (22-29) 01/09/23 15: Anion Gap 15.0 (5-19) 01/09/23 15: BUN 27 mg/dL (8-23) H 01/09/23 15: Creatinine 1.0 mg/dL (0.7-1.2) 01/09/23 15: GFR Calculation Not Reportable 01/09/23 15: Glucose 114 mg/dL (65-115) 01/09/23 15:29 Calculated Osmolality 304 mOsm/kg (285-295) H 01/09/23 15: Calcium 9.5 mg/dL (8.5-10.5) 01/09/23 15: Total Bilirubin 0.4 mg/dL (0.15-1.2) 01/09/23 15: AST 16 U/L (0-40) 01/09/23 15: ALT 15 U/L (0-41) 01/09/23 15: Alkaline Phosphatase 78 U/L (40-130) 01/09/23 15:29 Troponin T Baseline 21 ng/L (0-15) H 01/09/23 15:29 Troponin T 120 Minute 20.02 ng/L (0-15) H 01/09/23 17:29 Delta Troponin T -0.98 ABS# (0-10) L 01/09/23 17: Total Protein 7.0 g/dL (6.6-8.7) 01/09/23 15: Albumin 4.3 g/dL (3.5-5.2) 01/09/23 15: Globulin 2.7 g/dL (1.3-4.6) 01/09/23 15:29 All radiology interpretation(s) finalized by discharge Discharge Plan Discharge Patient Disposition: Home Clinical Impression: Atypical chest pain Condition: Stable Prescriptions: No Action albuterol sulfate 90 mcg/actuation aerosol powdr breath activated 2 inh INHALATION Q6H PRN (Reason: Shortness Of Breath) sildenafil 100 mg tablet 100 mg PO DAILY PRN (Reason: sexual activity) Qty: 20 12RF Rx Instructions: 1 hour before intercourse on empty stomach. NO NITROGLYCERIN! loratadine [Allergy Relief (loratadine)] 10 mg tablet 10 mg PO DAILY tamsulosin [Flomax] 0.4 mg capsule 0.4 mg PO DAILY@2100 finasteride 5 mg tablet 5 mg PO DAILY@0900 allopurinol 300 mg tablet 300 mg PO DAILY@0900 omeprazole 20 mg tablet,delayed release (DR/EC) 20 mg PO BID multivitamin Tablet 1 tab PO DAILY@0900 cholecalciferol (vitamin D3) 1,250 mcg (50,000 unit) capsule 1,250 mcg PO DAILY@0900 ascorbate calcium (vitamin C) 500 mg tablet 500 mg PO DAILY@0900 aspirin [Adult Aspirin Regimen] 81 mg tablet,delayed release (DR/EC) 81 mg PO DAILY@0900 docusate sodium [Colace] 100 mg capsule 100 mg PO BID PRN (Reason: Constipation) diphenoxylate-atropine [Lomotil] 2.5-0.025 mg tablet 1 tab PO QID PRN (Reason: Diarrhea) garlic 1,000 mg capsule 2,000 mg PO DAILY@0900 lutein 20 mg capsule 20 mg PO DAILY@0900 melatonin 3 mg capsule 3 mg PO BEDTIME@2300 PRN (Reason: Insomnia) alendronate [Fosamax] 70 mg tablet 70 mg PO Q7D Rx Instructions: take on Sunday vitamin B complex [B Complex-Vitamin B12] Tablet 1 tab PO DAILY@0900 cod liver oil Capsule 1 cap PO DAILY@0900 ICaps AREDS2 (copper citrate) 250 mg-200 unit -12.5 mg-1 mg tablet 1 tab PO BID@0900,2100 vitamin A 8,000 unit capsule 8,000 unit PO DAILY@0900 timolol 0.25 % drops 1 drp ophthalmic (eye) DAILY gabapentin 600 mg tablet 600 mg PO QID@09,13,17,21 acetaminophen [Tylenol] 325 mg Tablet 325 - 650 mg PO QID PRN (Reason: Pain) Eylea 2 mg/0.05 mL Syringe See Rx Instructions .ROUTE .COMPLEX Rx Instructions: mg intravitreal at eye doctor every 5-6 weeks atorvastatin 40 mg tablet 40 mg PO BEDTIME clopidogrel 75 mg tablet 75 mg PO DAILY metoprolol succinate 25 mg tablet extended release 24 hr 12.5 mg PO DAILY lisinopril 2.5 mg tablet 2.5 mg PO DAILY oxycodone 20 mg tablet See Rx Instructions .ROUTE .COMPLEX Rx Instructions: 20 mg orally 5 times daily - max of 100 mg daily nitroglycerin 0.4 mg Tablet, Sublingual 0.4 mg SUBLINGUAL Q5M PRN (Reason: Chest Pain) Rx Instructions: do not exceed 3 doses per episode tizanidine 4 mg tablet 4 mg PO Q6H PRN (Reason: muscle spasticity) Qty: 20 0RF Rx Instructions: do not exceed 3 doses per 24 hrs diclofenac sodium 75 mg tablet,delayed release (DR/EC) 75 mg PO Q12H PRN (Reason: pain) Qty: 20 0RF Pataday 0.2 % Drops 1 drp OPHTHALMIC (EYE) DAILY@0900 Discharge Orders: Discharge ED (Routine); Ordered 01/09/23 Ordered By: Chase Noguera Referrals: Celeste Keane DO [Primary Care Provider] - Discharge Diet: Advance as tolerated Discharge Activity: Resume usual activity Patient Instructions: Opioid Safety, Pain Management Activity Restrictions/Additional Instructions: Activity Restrictions/Additional Instructions: Thank you for choosing [facility] for your healthcare needs today. Please realize that you were seen in the Emergency Department and that we are providing you with an emergency medical screening exam and this may not be a complete and all inclusive of all the testing and or medical work-up that you may need to determine your ailment or severity of your illness. It is very important that you follow-up as instructed with your Primary care provider or Specialist for additional evaluation and to discuss your medical treatment plan. You may return to the Emergency Department should you have concerns or if your condition changes or worsens in any way. Coding Level of Care Code ED [place] Former Hand for Haily Canas
[2023-01-09 16:10] LABS: Alanine Aminotransferase 15 U/L (0-41); Albumin Level 4.3 g/dL (3.5-5.2); Alkaline Phosphatase 78 U/L (40-130); Aspartate Amino Transferase 16 U/L (0-40); Blood Urea Nitrogen 27 mg/dL (8-23); Calcium 9.5 mg/dL (8.5-10.5); Carbon Dioxide 26 mmol/L (22-29); Chloride 107 mmol/L (98-107); Globulin 2.7 g/dL (1.3-4.6); Glucose 114 mg/dL (65-115); Osmolality Calculated 304 mOsm/kg (285-295); Sodium 144 mmol/L (136-145); Total Bilirubin 0.4 mg/dL (0.15-1.2)
[2023-01-09 16:19] LABS: Troponin(5th) Baseline 21 ng/L (0-15)
--- NOTE | 2023-01-09 17:19 | ECG_ITS ---
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 Measurements Intervals [place] Rate: 79 P: 0 MI: 0 QRS: 5 QRSD: 74 T: 15 QT: 361 QTc: 416 Interpretive Statements SINUS RHYTHM WITH FIRST DEGREE AV BLOCK ABNORMAL RHYTHM ECG Compared to ECG 07/28/2022 13:10:27 Supraventricular rhythm now present Sinus bradycardia no longer present First degree AV block no longer present Electronically Signed On 01-09-2023 22:26:15 [facility] by Kristi Mariee M.D. [id number]
--- NOTE | 2023-01-09 17:27 | PC.PHAR ---
UNABLE TO GET AHOLD OF . 01/09/23
[2023-01-09 18:15] LABS: Troponin 5 2HR 20.02 ng/L (0-15)
[2023-01-09 18:27] LABS: Troponin 5 2HR Delta -0.98 ABS# (0-10)
== END 2023-01-09 19:20 | disposition home or self-care (01) ==
PROVIDERS: Family Medicine; Emergency Provider Internal Medicine; PCP Family Medicine
DX: R07.89 Other chest pain (principal); Z79.02 Long term (current) use of antithrombotics/antiplatelets; Z79.82 Long term (current) use of aspirin
CPT/HCPCS: 36415; 71045; 80053; 84484; 85025; 93005; 99285

== ENCOUNTER → 2023-01-23 09:44 | Outpatient (BNVA) | payer MEDICARE, SELFPAY | PROVIDERS: PCP Family Medicine; Visit Provider Anesthesiology Pain Medicine | DX: G89.29 Other chronic pain (principal); M50.90 Cervical disc disorder, unspecified, unspecified cervical region; J31.0 Chronic rhinitis; M25.511 Pain in right shoulder; M25.512 Pain in left shoulder; M47.812 Spondylosis without myelopathy or radiculopathy, cervical region; Z98.1 Arthrodesis status; M54.12 Radiculopathy, cervical region; M96.1 Postlaminectomy syndrome, not elsewhere classified | CPT/HCPCS: 99214 ==

== ENCOUNTER 2023-02-06 10:31 | Outpatient (RCR) | payer SELFPAY | END 2023-03-07 23:59 | disposition home or self-care (01) | LOC: CR 10:31 | PROVIDERS: PCP Family Medicine; Referring Provider Family Medicine; Visit Provider Family Medicine | DX: I25.10 Atherosclerotic heart disease of native coronary artery without angina pectoris (principal) ==

== ENCOUNTER → 2023-03-06 10:39 | Outpatient (BNVA) | payer MEDICARE, SELFPAY | PROVIDERS: PCP Family Medicine; Visit Provider Student in an Organized Health Care Education/Training Program | DX: M65.4 Radial styloid tenosynovitis [de Quervain] | CPT/HCPCS: 73110; 99204 ==

== ENCOUNTER 2023-03-08 12:49 | Outpatient (RCR) | payer SELFPAY | END 2023-04-05 23:59 | disposition home or self-care (01) | LOC: CR 12:49 | PROVIDERS: PCP Family Medicine; Referring Provider Family Medicine; Visit Provider Family Medicine | DX: I25.10 Atherosclerotic heart disease of native coronary artery without angina pectoris (principal) ==

== ENCOUNTER → 2023-04-03 11:32 | Outpatient (BNVA) | payer MEDICARE, SELFPAY | PROVIDERS: PCP Family Medicine; Visit Provider Podiatrist Foot & Ankle Surgery | DX: D64.9 Anemia, unspecified (principal); I73.9 Peripheral vascular disease, unspecified; L60.3 Nail dystrophy; Q66.71 Congenital pes cavus, right foot; Q66.72 Congenital pes cavus, left foot | CPT/HCPCS: 11721 ==

== ENCOUNTER 2023-04-06 13:08 | Outpatient (RCR) | payer SELFPAY | END 2023-05-06 23:59 | disposition home or self-care (01) | LOC: CR 13:08 | PROVIDERS: PCP Family Medicine; Referring Provider Family Medicine; Visit Provider Family Medicine | DX: I25.10 Atherosclerotic heart disease of native coronary artery without angina pectoris (principal) ==

== ENCOUNTER 2023-04-11 12:56 | Day surgery (SDC) | payer MEDICARE, SELFPAY ==
[2023-04-11] VITALS (8 sets, daily range): BP systolic 121–183; BP diastolic 52–68; PULSE 46–71; RESP 16–18; TEMP 36.1–36.8; O2SAT 92–97; BMI 24.9
--- NOTE | 2023-04-11 15:15 | ECG_ITS ---
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 Measurements Intervals [place] Rate: 51 P: -46 OR: 307 QRS: -13 QRSD: 95 T: -6 QT: 455 QTc: 420 Interpretive Statements SINUS BRADYCARDIA WITH FIRST DEGREE AV BLOCK Compared to ECG 01/09/2023 15:08:02 Sinus rhythm no longer present Electronically Signed On 04-12-2023 14:52:28 REGISTRATION SCHEDULING SPECIALIST by Mayo Bates M.D. [id number]
[2023-04-11 15:22] LABS: Basophils % 0.3 %; Eosinophils # 0.1 10^3/uL (0.0-0.8); Hematocrit 36.6 % (37-53); Lymphocytes % 16.4 %; Mean Corpuscular Hemoglobin 30.9 pg (27-33); Mean Corpuscular Volume 96.6 fl (82-101); Monocytes # 0.5 10^3/uL (0.2-0.9); Monocytes % 7.8 %; Neutrophils # 4.44 10^3/uL (1.8-7.7); Neutrophils % 74.2 %; Nucleated Red Blood Cells % 0 %; Platelet Count 177 10^3/cmm (157-399); Red Blood Count 3.79 10^6/uL (3.85-5.65); Red Cell Distribution Width 14.1 % (12.1-15.1); White Blood Count 5.99 10^3/uL (3.29-11.43)
[2023-04-11] MEDS: ketorolac 30 mg/mL INJ 15 MG IVP (15:35)
[2023-04-11] MEDS: sodium chloride 0.9% 1,000 ML 30 ML IV (15:36)
[2023-04-11] MEDS: acetaminophen 1,000 MG/100 ML PIGGYBACK 400 MG IV (15:38)
--- NOTE | 2023-04-11 16:50 | P.ANESASSM_ITS ---
Pre-Anesthetic Assessment Height/Weight: Height 1.68 m Weight 70 kg Temp Pulse Resp BP Pulse Ox O2 Del Method 98.3 F 71 18 127/63 92 Room Air, CPAP 04/11/23 14:12 04/11/23 14:12 04/11/23 14:12 04/11/23 14:12 04/11/23 14:12 04/11/23 14:15 Operation Date: 04/11/23 14:00 Proposed Procedures p Trigger Finger Release/ right thumb trigger release/right ring finger trigger release/right middle finger(Right) - Bobo Owsley, DO s Dequervain Release/ right wrist de Quervain's release(Right) - Bobo Owsley, DO Last intake: Intake Last Liquid Date 04/10/23 Last Liquid Time 23:00 Last Solid Date 04/10/23 Last Solid Time 22:00 Social No alcohol and No tobacco Exam alert, oriented x 3 and clear to auscultation bilaterally 2/6 CHIKIS Airway Submandibular: within normal limits Cervical ROM: Other Mallampati: Class I Pulmonary Chronic Obstructive Pulmonary Disease CV/HEM Coronary Artery Disease Anesthetic Plan ASA status: 3 Anesthesia: MAC Risk of > 500 ml blood loss (7ml/kg in children): No Medications/Allergies Home Medications Medication Instructions Recorded Confirmed Last Taken Type alendronate 70 mg tablet (Fosamax) 70 mg PO Q7D 03/14/19 04/10/23 04/03/23 History allopurinol 300 mg tablet 300 mg PO DAILY@89903/14/19 04/10/23 04/10/23 History ascorbate calcium (vitamin C) 500 500 mg PO DAILY@89903/14/19 04/10/23 04/10/23 History mg tablet aspirin 81 mg tablet,delayed 81 mg PO DAILY@89903/14/19 04/10/23 04/06/23 History release (Adult Aspirin Regimen) cholecalciferol (vitamin D3) 1,250 1,250 mcg PO DAILY@89903/14/19 04/10/23 04/09/23 History mcg (50,000 unit) capsule cod liver oil 1 cap PO DAILY@89903/14/19 04/10/23 04/09/23 History diphenoxylate-atropine 2.5 1 tab PO QID PRN Diarrhea 03/14/19 04/10/23 Unknown History mg-0.025 mg tablet (Lomotil) docusate sodium 100 mg capsule 100 mg PO BID PRN Constipation 03/14/19 04/10/23 Unknown History (Colace) finasteride 5 mg tablet 5 mg PO DAILY@0903/14/19 04/10/23 04/11/23 History garlic 1,000 mg capsule 2,000 mg PO DAILY@0903/14/19 04/10/23 04/09/23 History lutein 20 mg capsule 20 mg PO DAILY@0903/14/19 04/10/23 04/10/23 History melatonin 3 mg capsule 3 mg PO BEDTIME@2300 PRN Insomnia 03/14/19 04/10/23 04/09/23 History multivitamin 1 tab PO DAILY@0903/14/19 04/10/23 04/10/23 History omeprazole 20 mg tablet,delayed 20 mg PO BID 03/14/19 04/10/23 04/10/23 History release tamsulosin 0.4 mg capsule (Flomax) 0.4 mg PO DAILY@2100 03/14/19 04/10/23 04/09/23 History vitamin A 2,400 mcg capsule 8,000 unit PO DAILY@0903/14/19 04/10/23 04/09/23 History vitamin B complex (B 1 tab PO DAILY@0903/14/19 04/10/23 04/09/23 History Complex-Vitamin B12 tablet) albuterol sulfate 90 mcg/actuation 2 inh inhalation Q6H PRN Shortness 08/04/19 04/10/23 Unknown History breath activated powder inhaler Of Breath acetaminophen 325 mg tablet 325 - 650 mg PO QID PRN Pain 02/19/20 04/10/23 04/10/23 History (Tylenol) gabapentin 600 mg tablet 600 mg PO QID@09,13,17,21 02/19/20 04/10/23 04/11/23 History sildenafil 100 mg tablet 100 mg PO DAILY PRN sexual 08/03/20 04/10/23 Unknown Rx activity #20 tabs loratadine 10 mg tablet (Allergy 10 mg PO DAILY 11/11/20 04/10/23 04/10/23 History Relief (loratadine)) timolol 0.25 % eye drops 1 drp ophthalmic (eye) DAILY 01/12/22 04/10/23 04/09/23 History aflibercept 2 mg/0.05 mL See Rx Instructions .Route .COMPLEX 07/28/22 04/10/23 03/13/23 History intravitreal syringe (Eylea) atorvastatin 40 mg tablet 40 mg PO BEDTIME 07/28/22 04/10/23 04/10/23 History clopidogrel 75 mg tablet 75 mg PO DAILY 07/28/22 04/10/23 04/07/23 History diclofenac sodium 75 mg 75 mg PO Q12H PRN pain #20 tabs 07/28/22 04/10/23 04/09/23 Rx tablet,delayed release lisinopril 2.5 mg tablet 2.5 mg PO DAILY 07/28/22 04/10/23 03/11/23 History metoprolol succinate 25 mg 12.5 mg PO DAILY 07/28/22 04/10/23 04/03/23 History tablet,extended release 24 hr nitroglycerin 0.4 mg sublingual 0.4 mg sublingual Q5M PRN Chest 07/28/22 04/10/23 Unknown History tablet Pain oxycodone 20 mg tablet 20 mg PO Q4-5H PRN Pain 07/28/22 04/10/23 04/11/23 History tizanidine 4 mg tablet 4 mg PO Q6H PRN muscle spasticity 07/28/22 04/10/23 Unknown Rx #20 tabs olopatadine 0.2 % eye drops 1 drp ophthalmic (eye) DAILY@0900 01/09/23 04/10/23 04/10/23 History ondansetron 4 mg disintegrating 4 mg PO Q8H PRN nausea and 04/11/23 Unknown Rx tablet vomiting 3 days #9 tabs tramadol 50 mg tablet 50 mg PO Q6H PRN pain #20 tabs 04/11/23 Unknown Rx Allergies Allergy/AdvReac Type Severity Reaction Status Date / Time Iodinated Contrast Media Allergy Mild ALGY-Hives Verified 04/03/23 11:35 adhesive tape Allergy ALGY-Rash Verified 04/03/23 11:35 diphenhydramine Allergy ALGY-Hives Verified 04/03/23 11:35 [From Benadryl] hydrocodone Allergy ADR-Itching Verified 04/03/23 11:35 Penicillins Allergy ALGY-Rash Verified 04/03/23 11:35 povidone-iodine Allergy ALGY-Rash Verified 04/03/23 11:35 [From Betadine] sulfabenzamide Allergy ALGY-Hives Verified 04/03/23 11:35 tetanus toxoid, adsorbed Allergy ALGY-Rash Verified 04/03/23 11:35 zolpidem [From Ambien] Allergy Unknown Verified 04/03/23 11:35 Current Medications Generic Name Dose Route Start Last Admin Trade Name Freq PRN Reason Stop Dose Admin Sodium Chloride 1,000 mls @ 30 mls/hr 04/11/23 07:30 04/11/23 15:36 Sodium Chloride 0.9% IV 04/12/23 07:29 30 mls/hr .Q24H RENUKA Administration PFSH Anesthesia Medical History Chronic right shoulder pain Erectile dysfunction due to diseases classified elsewhere BPH NOS w ur obs/LUTS Hip replacement planned 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 Mother , at age 54 Stroke Other CAD (coronary artery disease) Cancer Lung disease Social History Smoking and tobacco/nicotine status: never used tobacco/nicotine Second hand smoke exposure: No Alcohol intake: never Substance/Drug Use: never Marital status: Current occupational status: retired Data Anesthesia 04/11/23 15:08 Short CBC 04/11/23 Range/Units 15:08 WBC 5.99 (3.29-11.43) 10^3/uL Hgb 11.70 (11.27-16.99) g/dL Hct 36.6 L (37-53) % MCV 96.6 (82-101) fl Plt Count 177 (157-399) 10^3/cmm Neut % (Auto) 74.2 % Neut # (Auto) 4.44 (1.8-7.7) 10^3/uL Cardiac Studies: 2 No Data to Display
--- NOTE | 2023-04-11 17:38 | P.HP_ITS ---
Same Day Surgery H&P Indication for Procedure/HPI DATE OF PROCEDURE: April 11, 2023 CHIEF COMPLAINT/INDICATIONFOR SURGICAL PROCEDURE: Right wrist de Quervain's disease, right trigger thumb, ring, middle finger PREOP DIAGNOSIS: Right wrist de Quervain's disease, right trigger thumb, ring, middle finger PLANNED PROCEDURE: Operation Date: 04/11/23 14:00 Proposed Procedures p Trigger Finger Release/ right thumb trigger release/right ring finger trigger release/right middle finger(Right) - Bobo Larsen DO s Dequervain Release/ right wrist de Quervain's release(Right) - Bobo Larsen DO Medications/Allergies* Home Medications Medication Instructions Recorded Confirmed Type alendronate 70 mg tablet (Fosamax) 70 mg PO Q7D 03/14/19 04/10/23 History allopurinol 300 mg tablet 300 mg PO DAILY@89903/14/19 04/10/23 History ascorbate calcium (vitamin C) 500 500 mg PO DAILY@89903/14/19 04/10/23 History mg tablet aspirin 81 mg tablet,delayed 81 mg PO DAILY@89903/14/19 04/10/23 History release (Adult Aspirin Regimen) cholecalciferol (vitamin D3) 1,250 1,250 mcg PO DAILY@89903/14/19 04/10/23 History mcg (50,000 unit) capsule cod liver oil 1 cap PO DAILY@89903/14/19 04/10/23 History diphenoxylate-atropine 2.5 1 tab PO QID PRN Diarrhea 03/14/19 04/10/23 History mg-0.025 mg tablet (Lomotil) docusate sodium 100 mg capsule 100 mg PO BID PRN Constipation 03/14/19 04/10/23 History (Colace) finasteride 5 mg tablet 5 mg PO DAILY@89903/14/19 04/10/23 History garlic 1,000 mg capsule 2,000 mg PO DAILY@89903/14/19 04/10/23 History lutein 20 mg capsule 20 mg PO DAILY@89903/14/19 04/10/23 History melatonin 3 mg capsule 3 mg PO BEDTIME@2300 PRN Insomnia 03/14/19 04/10/23 History multivitamin 1 tab PO DAILY@89903/14/19 04/10/23 History omeprazole 20 mg tablet,delayed 20 mg PO BID 03/14/19 04/10/23 History release tamsulosin 0.4 mg capsule (Flomax) 0.4 mg PO DAILY@2100 03/14/19 04/10/23 History vitamin A 2,400 mcg capsule 8,000 unit PO DAILY@0900 03/14/19 04/10/23 History vitamin B complex (B 1 tab PO DAILY@0900 03/14/19 04/10/23 History Complex-Vitamin B12 tablet) albuterol sulfate 90 mcg/actuation 2 inh inhalation Q6H PRN Shortness 08/04/19 04/10/23 History breath activated powder inhaler Of Breath acetaminophen 325 mg tablet 325 - 650 mg PO QID PRN Pain 02/19/20 04/10/23 History (Tylenol) gabapentin 600 mg tablet 600 mg PO QID@09,13,17,21 02/19/20 04/10/23 History loratadine 10 mg tablet (Allergy 10 mg PO DAILY 11/11/20 04/10/23 History Relief (loratadine)) timolol 0.25 % eye drops 1 drp ophthalmic (eye) DAILY 01/12/22 04/10/23 History aflibercept 2 mg/0.05 mL See Rx Instructions .Route .COMPLEX 07/28/22 04/10/23 History intravitreal syringe (Eylea) atorvastatin 40 mg tablet 40 mg PO BEDTIME 07/28/22 04/10/23 History clopidogrel 75 mg tablet 75 mg PO DAILY 07/28/22 04/10/23 History lisinopril 2.5 mg tablet 2.5 mg PO DAILY 07/28/22 04/10/23 History metoprolol succinate 25 mg 12.5 mg PO DAILY 07/28/22 04/10/23 History tablet,extended release 24 hr nitroglycerin 0.4 mg sublingual 0.4 mg sublingual Q5M PRN Chest 07/28/22 04/10/23 History tablet Pain oxycodone 20 mg tablet 20 mg PO Q4-5H PRN Pain 07/28/22 04/10/23 History olopatadine 0.2 % eye drops 1 drp ophthalmic (eye) DAILY@0900 01/09/23 04/10/23 History Allergies/Adverse Reactions Allergy/AdvReac Type Severity Reaction Status Date / Time Iodinated Contrast Media Allergy Mild ALGY-Hives Verified 04/03/23 11:35 adhesive tape Allergy ALGY-Rash Verified 04/03/23 11:35 diphenhydramine Allergy ALGY-Hives Verified 04/03/23 11:35 [From Benadryl] hydrocodone Allergy ADR-Itching Verified 04/03/23 11:35 Penicillins Allergy ALGY-Rash Verified 04/03/23 11:35 povidone-iodine Allergy ALGY-Rash Verified 04/03/23 11:35 [From Betadine] sulfabenzamide Allergy ALGY-Hives Verified 04/03/23 11:35 tetanus toxoid, adsorbed Allergy ALGY-Rash Verified 04/03/23 11:35 zolpidem [From Ambien] Allergy Unknown Verified 04/03/23 11:35 Current Medications: Generic Name Dose Route Start Last Admin Trade Name Freq PRN Reason Stop Dose Admin Sodium Chloride 1,000 mls @ 30 mls/hr 04/11/23 07:30 04/11/23 15:36 Sodium Chloride 0.9% IV 04/12/23 07:29 30 mls/hr .Q24H RENUKA Administration Pertinent History/Comorbid Conditions* Medical History (Updated 03/06/23 @ 13:03 by Bobo Larsen DO) Chronic right shoulder pain Erectile dysfunction due to diseases classified elsewhere BPH NOS w ur obs/LUTS Hip replacement planned 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 Tonsillectomy planned Opioid contract exists Encounter for long-term use of opiate analgesic Chronic low back pain Chronic left shoulder pain Surgical History (Updated 10/02/19 @ 10:36 by Nirmal Malave MD) H/O eye surgery S/P partial colectomy S/P cervical spinal fusion History of knee replacement History of back surgery History of carpal tunnel surgery of left wrist Family History (Updated 07/25/19 @ 15:30 by Yudi Bradley LPN) Father, at age 96 Mother, at age 54 CAD (coronary artery disease) Lung disease Cancer Stroke Mother Social History Smoking and tobacco/nicotine status: never used tobacco/nicotine Second hand smoke exposure: No Alcohol intake: never Substance/Drug Use: never Marital status: Current occupational status: retired Pertinent Exam Findings alert, oriented x 3, operative site marked and procedure specific exam findings Tenderness to palpation at the right wrist first dorsal compartment, tenderness over the A1 pulleys of the thumb middle and ring finger. With positive trigge ring noted Recommendations Surgery/Procedure today Other Plans: Plan to proceed to the OR today for right wrist de Quervain's release, right thumb trigger release, right ring finger trigger release right middle finger trigger release patient understands and agrees with current plan. Questions answered. Coding Level of Care Code Acute Code for Haily Canas
[2023-04-11] MEDS: fentaNYL 50 mcg/mL INJ 2mL IVP (18:55)
[2023-04-11] MEDS: clindamycin 900 MG/50 ML PREMIX 100 MG IV (20:07)
[2023-04-11] MEDS: ROPivacaine 0.5% SDV 30 mL 150 MG INJECTION (20:15)
[2023-04-11] MEDS: lidocaine 1% INJ 10 mL (per mL) XX (20:15)
--- NOTE | 2023-04-11 20:52 | W.PM.BPON ---
Date of Procedure: 04/11/2023 Surgeon: Bobo Larsen DO Department Of Mathematics Chair(s): Saji Larsen PA-C Procedure(s) performed: [ 1-Right wrist de Quervain's release 2-right wrist calcific tendinosis/deposit excision 3-right trigger thumb release 4-right middle finger trigger release 5-right ring finger trigger release Findings of the procedure(s): Patient was found to have right wrist de Quervain's disease right trigger thumb as well as right middle and ring finger triggers. When releasing the de Quervain's patient did have calcific tendinosis/calcium deposit within the first dorsal compartment causing irritation on the nerve this was subsequently excised the procedure went as planned without issues. Intraoperatively patient was waking up and able to make a full fist and extend his digits. Patient taken to PACU in stable condition. Estimated blood loss: 5 mL Specimen(s) removed: None Post-operative diagnosis: Right wrist de Quervain's disease, right wrist calcific tendinosis, right trigger thumb, right middle finger trigger, right ring finger trigger
--- NOTE | 2023-04-11 20:56 | PM.OP ---
Operative Report Date of procedure: April 11, 2023 Surgeon: Bobo Larsen DO Procedure: Preoperative diagnosis: Right wrist de Quervain's disease, right thumb ring and middle finger triggers post-op diagnosis: Same, as well as right wrist first dorsal compartment calcific tendinosis Procedure done: 1-Right wrist de Quervain's release 2-right wrist calcific tendinosis/deposit excision 3-right trigger thumb release 4-right middle finger trigger release 5-right ring finger trigger release Surgeon: Bobo Larsen DO Estimated blood loss: 5 mL Tourniquet time: 17 minutes Anesthesia: MAC/local IV fluids: See anesthesia record Complications: None Findings: See operative report narrative Condition: stable Disposition: same day Brief History: Patient presents to the outpatient setting with findings consistent with a right?thumb, ring, middle finger?trigger, right wrist de Quervain's disease. Patient has been worked up in the outpatient setting and is failed conservative treatment approach.? Patient has tried treating conservatively with recurrence of ?triggering pain as well as de Quervain's disease.? We talked about treatment options and ultimately patient would like to proceed with a surgical intervention. At this point time I feel this is most appropriate next best step in treatment option.? We talked about the risk benefits complications and alternatives with surgical nonsurgical treatment options.? Understanding risk of surgery patient agrees to proceed with a surgical intervention. All questions answered. Procedure: Patient was seen evaluated in the preoperative holding area.? Consent was reviewed and signed with patient.? Correct extremity was then marked.? Patient was then seen and evaluated by the anesthesia department once cleared for surgery patient was then taken back to the operative suite patient was placed in supine position and all bony prominences well-padded the patient was properly secured to the bed.? Armboard was applied to the right upper extremity and the right upper extremity was then placed with a nonsterile tourniquet to the right upper arm.? This point time the right upper extremity was then prepped and draped in standard orthopedic fashion.? A final timeout was performed.? Patient received appropriate preoperative antibiotics. Esmarch tourniquet was used exsanguinate the right upper extremity and tourniquet was insufflated to 250 mmHg.? First I then proceeded with the right wrist de Quervain's release.? I marked out the first dorsal compartment a small longitudinal incision was made directly over this.? Sharp scalpel incision was made through skin only switch to Littler dissection scissors and protected the superficial branch of the radial nerve as well as neurovascular structures.? I then had direct visualization of the first dorsal compartment sharp scalpel incision I used to then simply incise the first dorsal compartment I switched dissection scissors to release this both proximally and distally to its entirety the EPB tendon did have a subsheath which was subsequently released as well.? I then subsequently used a rag nail and mobilized each tendon that verify no areas of entrapment and this completed the right wrist de Quervain's release. At the floor of the first dorsal compartment patient did have a calcium deposit roughly 0.25 cm x 0.5 cm x 0.25 cm. This was in the floor of the dorsal compartment and was irritating causing inflammation of the first dorsal compartment tendons. As result I utilized sharp scalpel excision as well as rongeur to excise the calcific tendinosis deposit. This was removed in its entirety thorough irrigation performed and a wet sponge was then placed to the incision site. I then proceeded with the trigger thumb release. I identified patient's MP flexion crease marked appropriate incision transversely across the flexion crease within Laexis's lines sharp scalpel incision was made only through skin.? Once this was done I switched to Littler dissection scissors this I then subsequently spread longitudinally in the planes of the digital nerves.? Once these were identified these were protected by my assistant softball coach with Kasdan retractors.? Next I identified directly over the A1 airam of the right?thumb.? This was significantly thickened and identified to be the area of patient's?thumb?triggering.? I used sharp scalpel to incise the A1 airam and then utilized my assistant softball coach to retract the ability and under loupe magnification released the entirety of the A1 airam both proximally and distally up to the oblique airam.? This point time the tendon was then inspected and found to be healthy there was some inflammation around the tendon itself but no evidence of tearing and no need for any debridement.? The Ragnell was used to pull the tendon out of the incision and there was no mechanical?triggering I then took the patient's?thumb through range of motion no recurrent?triggering was noted.? ?Thorough irrigation was performed of the incision site and subsequently proceeded with the right middle finger trigger release. Next a standard oblique incision was made centering over the A1 airam following patient's flexor crease of the right middle finger.? Sharp scalpel incision was made only through skin and then switched to Littler dissection scissors and spread longitudinally directly over the flexor tendon sheath.? I then mobilized both radially and ulnarly and Kasdan retractors were used and placed by my assistant softball coach to protect neurovascular bundle.? Next I visualized the A1 airam and this was incised with a scalpel.? I then switched to dissection scissors and released the A1 airam both proximally as well as distally to its entirety.? Significant tendon sheath fluid was noted consistent with inflammation.? Mild fraying of the flexor tendons noted but no tear.? At this point I utilized a rag nail and pulled the tendons FDS and FDP out of the incision and no?triggering was noted.? This point thorough irrigation was performed. Sponge was placed in this wound. Proceed with right ring finger trigger release made a standard horizontal/oblique incision was made centering over the A1 airam following patient's flexor crease.? Sharp scalpel incision was made only through skin and then switched to Littler dissection scissors and spread longitudinally directly over the flexor tendon sheath.? I then mobilized both radially and ulnarly and Kasdan retractors were used and placed by my assistant softball coach to protect neurovascular bundle.? Next I visualized the A1 airam and this was incised with a scalpel.? I then switched to dissection scissors and released the A1 airam both proximally as well as distally to its entirety.? Significant tendon sheath fluid was noted consistent with inflammation.? Mild fraying of the flexor tendons noted but no tear.? At this point I utilized a rag nail and pulled the tendons FDS and FDP out of the incision and no?triggering was noted.? I then had anesthesia wake up the patient and patient was able to actively flex and extend with no?triggering we checked and he had no triggering of the thumb ring or middle fingers..? This point thorough irrigation was performed. I then let the tourniquet down identified and maintained exact hemostasis with bipolar electrocautery irrigated the wound bed and then closed the incision with interrupted nylon suture. Incision sites were then dressed with Xeroform 4 x 4's Kerlix William wrap and an Yaniv wrap.? Patient was then awakened from anesthesia and taken to PACU in stable condition. Disposition: Patient taken to PACU in stable condition recovering well.? Dressing on in place clean dry and intact.? Patient was receive appropriate discharge instruction as well as pain medication postoperatively.? Patient may be allowed weightbearing as tolerated to the right hand and encourage range of motion once dressing come down after 72 hours.? Patient to follow-up with me in the office in 2 weeks.? Patient understands and agrees with current plan.? All questions answered.
--- NOTE | 2023-04-11 21:02 | PM.PACU ---
PACU note Narrative: Patient is a 83-year-old male that just underwent right thumb, middle and ring finger trigger release along with de Quervain's release. Patient transferred to PACU in stable condition. Pain is well controlled. Dressing on hand is dry and in place. Patient's fingers are warm and well-perfused. Patient can wiggle fingers. normal cap refill under 2 seconds. Patient has normal elbow range of motion. Unable to assess sensation due to residual localized anesthetic. Exam: somnolent, arousable Disposition: discharged
--- NOTE | 2023-04-11 21:12 | ANE.PACU2 ---
Inpatient post-anesthesia follow up: Vital signs: Temperature 97 F Pulse Rate 50 Respiratory Rate 18 Blood Pressure 144/61 Pulse Oximetry 93 Oxygen Delivery Me thod Room Air Oxygen Flow Rate Fraction of Inspir ed Oxygen Hydration adequate: Yes Nausea and vomiting: No Mental status: Baseline Additional Comments: no apparent anesthetic complications noted
== END 2023-04-11 22:01 | disposition home or self-care (01) ==
PROVIDERS: Anesthesiology; PCP Family Medicine; Visit Provider Student in an Organized Health Care Education/Training Program
PROC: (CPT 26055; principal; 2023-04-11 14:00)
PROC: (CPT 25000; 2023-04-11 14:00)
DX: M65.4 Radial styloid tenosynovitis [de Quervain] (principal); M65.331 Trigger finger, right middle finger; M65.341 Trigger finger, right ring finger; M65.311 Trigger thumb, right thumb; J44.9 Chronic obstructive pulmonary disease, unspecified; I25.10 Atherosclerotic heart disease of native coronary artery without angina pectoris; N40.1 Benign prostatic hyperplasia with lower urinary tract symptoms; N13.8 Other obstructive and reflux uropathy; Z79.891 Long term (current) use of opiate analgesic
CPT/HCPCS: 25000; 26055 ×3; 36415; 85025; 93005; J0131; J1885; J2704; J2795; J3010; J3490; J7030

== ENCOUNTER → 2023-04-26 08:12 | Outpatient (BNVA) | payer MEDICARE, SELFPAY | PROVIDERS: PCP Family Medicine; Visit Provider Student in an Organized Health Care Education/Training Program | DX: M65.4 Radial styloid tenosynovitis [de Quervain] (principal); M65.312 Trigger thumb, left thumb; M65.332 Trigger finger, left middle finger; M65.342 Trigger finger, left ring finger | CPT/HCPCS: 99214 ==

== ENCOUNTER 2023-05-01 11:56 | Outpatient (RCR) | payer MEDICARE, SELFPAY | END 2023-05-06 23:59 | disposition home or self-care (01) | LOC: SOT 11:56 | PROVIDERS: Visit Provider Student in an Organized Health Care Education/Training Program | DX: Z47.89 Encounter for other orthopedic aftercare (principal) | CPT/HCPCS: 97110; 97165 ==

== ENCOUNTER 2023-05-07 06:00 | Outpatient (RCR) | payer MEDICARE, SELFPAY | END 2023-06-05 23:59 | disposition home or self-care (01) | LOC: SOT 06:00 | PROVIDERS: PCP Family Medicine; Visit Provider Student in an Organized Health Care Education/Training Program | DX: Z47.89 Encounter for other orthopedic aftercare (principal) | CPT/HCPCS: 97022; 97110; 97140 ==

== ENCOUNTER 2023-05-31 07:27 | Day surgery (SDC) | payer MEDICARE, SELFPAY ==
[2023-05-31] VITALS (7 sets, daily range): BP systolic 112–174; BP diastolic 39–60; PULSE 46–63; RESP 16–18; TEMP 36.2–36.3; O2SAT 92–98; BMI 24.2
[2023-05-31] MEDS: acetaminophen 1,000 MG/100 ML PIGGYBACK 400 MG IV (09:31)
[2023-05-31] MEDS: ketorolac 30 mg/mL INJ IVP (09:31)
[2023-05-31] MEDS: sodium chloride 0.9% 1,000 ML 30 ML IV (09:32)
[2023-05-31] MEDS: scopolamine 1.5 Patch 1 PATCH TRANSDERMA (09:33)
--- NOTE | 2023-05-31 10:16 | ANES.PREANE2 ---
Pre-Anesthetic Assessment Height/Weight: Height 1.68 m Weight 68.039 kg Temp Pulse Resp BP Pulse Ox O2 Del Method 97.3 F L 63 18 174/39 96 Room Air 05/31/23 09:12 05/31/23 09:12 05/31/23 09:12 05/31/23 09:12 05/31/23 09:12 05/31/23 09:12 Operation Date: 05/31/23 10:15 Proposed Procedures p Dequervain Release(Left) - Bobo Suzie, DO s Trigger Finger Release/ left thumb /left middle finger/ left ring finger(Left) - Bobo Suzie, DO Familial anesthetic complications: None Was Beta Karena taken within 24 hours: N/A Was Clonidine taken within 24 hours: N/A Last intake: Intake Last Liquid Date 05/30/23 Last Liquid Time 21:30 Last Solid Date 05/30/23 Last Solid Time 21:30 Social No alcohol and No tobacco Airway Mallampati: Class II Pulmonary Chronic Obstructive Pulmonary Disease CV/HEM Coronary Artery Disease Anesthetic Plan ASA status: 2 Anesthesia: General Risk of > 500 ml blood loss (7ml/kg in children): No Medications/Allergies Home Medications Medication Instructions Recorded Confirmed Last Taken Type alendronate 70 mg tablet (Fosamax) 70 mg PO Q7D 03/14/19 05/31/23 05/30/23 History allopurinol 300 mg tablet 300 mg PO DAILY@89903/14/19 05/31/23 05/31/23 History ascorbate calcium (vitamin C) 500 500 mg PO DAILY@89903/14/19 05/31/23 05/30/23 History mg tablet aspirin 81 mg tablet,delayed 81 mg PO DAILY@89903/14/19 05/31/23 05/30/23 History release (Adult Aspirin Regimen) cholecalciferol (vitamin D3) 1,250 1,250 mcg PO DAILY@89903/14/19 05/31/23 05/30/23 History mcg (50,000 unit) capsule cod liver oil 1 cap PO DAILY@89903/14/19 05/31/23 05/30/23 History diphenoxylate-atropine 2.5 1 tab PO QID PRN Diarrhea 03/14/19 05/31/23 Unknown History mg-0.025 mg tablet (Lomotil) docusate sodium 100 mg capsule 100 mg PO BID PRN Constipation 03/14/19 05/31/23 Unknown History (Colace) finasteride 5 mg tablet 5 mg PO DAILY@89903/14/19 05/31/23 05/30/23 History garlic 1,000 mg capsule 2,000 mg PO DAILY@0903/14/19 05/31/23 05/31/23 History lutein 20 mg capsule 20 mg PO DAILY@89903/14/19 05/31/23 05/31/23 History melatonin 3 mg capsule 3 mg PO BEDTIME@2300 PRN Insomnia 03/14/19 05/31/23 05/30/23 History multivitamin 1 tab PO DAILY@0903/14/19 05/31/23 05/30/23 History omeprazole 20 mg tablet,delayed 20 mg PO BID 03/14/19 05/31/23 04/10/23 History release tamsulosin 0.4 mg capsule (Flomax) 0.4 mg PO DAILY@2100 03/14/19 05/31/23 05/30/23 History vitamin A 2,400 mcg capsule 8,000 unit PO DAILY@89903/14/19 05/31/23 05/30/23 History vitamin B complex (B 1 tab PO DAILY@89903/14/19 05/31/23 05/30/23 History Complex-Vitamin B12 tablet) albuterol sulfate 90 mcg/actuation 2 inh inhalation Q6H PRN Shortness 08/04/19 05/31/23 05/29/23 History breath activated powder inhaler Of Breath acetaminophen 325 mg tablet 325 - 650 mg PO QID PRN Pain 02/19/20 05/31/23 05/30/23 History (Tylenol) gabapentin 600 mg tablet 600 mg PO QID@09,13,17,21 02/19/20 05/31/23 05/30/23 History sildenafil 100 mg tablet 100 mg PO DAILY PRN sexual 08/03/20 05/31/23 Unknown Rx activity #20 tabs loratadine 10 mg tablet (Allergy 10 mg PO DAILY 11/11/20 05/31/23 05/30/23 History Relief (loratadine)) timolol 0.25 % eye drops 1 drp ophthalmic (eye) DAILY 01/12/22 05/31/2324 History aflibercept 2 mg/0.05 mL See Rx Instructions .Route .COMPLEX 07/28/22 04/26/23 03/13/23 History intravitreal syringe (Eylea) atorvastatin 40 mg tablet 40 mg PO BEDTIME 07/28/22 05/31/23 05/30/23 History clopidogrel 75 mg tablet 75 mg PO DAILY 07/28/22 05/31/23 05/26/23 History diclofenac sodium 75 mg 75 mg PO Q12H PRN pain #20 tabs 07/28/22 05/31/23 05/30/23 Rx tablet,delayed release lisinopril 2.5 mg tablet 2.5 mg PO DAILY 07/28/22 05/31/23 05/30/23 History metoprolol succinate 25 mg 12.5 mg PO DAILY 07/28/22 05/31/23 05/24/23 History tablet,extended release 24 hr nitroglycerin 0.4 mg sublingual 0.4 mg sublingual Q5M PRN Chest 07/28/22 05/31/23 Unknown History tablet Pain oxycodone 20 mg tablet 20 mg PO Q4-5H PRN Pain 07/28/22 05/31/23 05/31/23 History tizanidine 4 mg tablet 4 mg PO Q6H PRN muscle spasticity 07/28/22 05/31/23 Unknown Rx #20 tabs olopatadine 0.2 % eye drops 1 drp ophthalmic (eye) DAILY@0900 01/09/23 05/31/23 05/31/23 History tramadol 50 mg tablet 50 mg PO Q6H PRN pain #20 tabs 04/11/23 05/31/23 05/30/23 Rx Allergies Allergy/AdvReac Type Severity Reaction Status Date / Time Iodinated Contrast Media Allergy Mild ALGY-Hives Verified 04/26/23 08:25 adhesive tape Allergy ALGY-Rash Verified 04/26/23 08:25 diphenhydramine Allergy ALGY-Hives Verified 04/26/23 08:25 [From Benadryl] hydrocodone Allergy ADR-Itching Verified 04/26/23 08:25 Penicillins Allergy ALGY-Rash Verified 04/26/23 08:25 povidone-iodine Allergy ALGY-Rash Verified 04/26/23 08:25 [From Betadine] sulfabenzamide Allergy ALGY-Hives Verified 04/26/23 08:25 tetanus toxoid, adsorbed Allergy ALGY-Rash Verified 04/26/23 08:25 zolpidem [From Ambien] Allergy Unknown Verified 04/26/23 08:25 Current Medications Generic Name Dose Route Start Last Admin Trade Name Monoq PRN Reason Stop Dose Admin Sodium Chloride 1,000 mls @ 30 mls/hr 05/31/23 08:30 05/31/23 09:32 Sodium Chloride 0.9% IV 06/01/23 08:29 30 mls/hr .Q24H RENUKA Administration PFSH Anesthesia Medical History Chronic right shoulder pain Erectile dysfunction due to diseases classified elsewhere BPH NOS w ur obs/LUTS Hip replacement planned 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 Mother , at age 54 Stroke Other CAD (coronary artery disease) Cancer Lung disease Social History Smoking and tobacco/nicotine status: never used tobacco/nicotine Second hand smoke exposure: No Alcohol intake: never Substance/Drug Use: never Marital status: Current occupational status: retired Data Anesthesia Cardiac Studies: No Data to Display
--- NOTE | 2023-05-31 11:05 | P.HP_ITS ---
Same Day Surgery H&P Indication for Procedure/HPI DATE OF PROCEDURE: May 31, 2023 CHIEF COMPLAINT/INDICATIONFOR SURGICAL PROCEDURE: Left wrist de Quervain's disease, left thumb, middle, ring finger trigger PREOP DIAGNOSIS: Left wrist de Quervain's disease, left thumb middle and ring finger trigger PLANNED PROCEDURE: Operation Date: 05/31/23 10:15 Proposed Procedures p Dequervain Release(Left) - Bobo Larsen DO s Trigger Finger Release/ left thumb /left middle finger/ left ring finger(Left) - Bobo Suzie, Medications/Allergies* Home Medications Medication Instructions Recorded Confirmed Type alendronate 70 mg tablet (Fosamax) 70 mg PO Q7D 03/14/19 05/31/23 History allopurinol 300 mg tablet 300 mg PO DAILY@89903/14/19 05/31/23 History ascorbate calcium (vitamin C) 500 500 mg PO DAILY@89903/14/19 05/31/23 History mg tablet aspirin 81 mg tablet,delayed 81 mg PO DAILY@89903/14/19 05/31/23 History release (Adult Aspirin Regimen) cholecalciferol (vitamin D3) 1,250 1,250 mcg PO DAILY@89903/14/19 05/31/23 History mcg (50,000 unit) capsule cod liver oil 1 cap PO DAILY@89903/14/19 05/31/23 History diphenoxylate-atropine 2.5 1 tab PO QID PRN Diarrhea 03/14/19 05/31/23 History mg-0.025 mg tablet (Lomotil) docusate sodium 100 mg capsule 100 mg PO BID PRN Constipation 03/14/19 05/31/23 History (Colace) finasteride 5 mg tablet 5 mg PO DAILY@89903/14/19 05/31/23 History garlic 1,000 mg capsule 2,000 mg PO DAILY@89903/14/19 05/31/23 History lutein 20 mg capsule 20 mg PO DAILY@89903/14/19 05/31/23 History melatonin 3 mg capsule 3 mg PO BEDTIME@2300 PRN Insomnia 03/14/19 05/31/23 History multivitamin 1 tab PO DAILY@89903/14/19 05/31/23 History omeprazole 20 mg tablet,delayed 20 mg PO BID 03/14/19 05/31/23 History release tamsulosin 0.4 mg capsule (Flomax) 0.4 mg PO DAILY@2100 03/14/19 05/31/23 History vitamin A 2,400 mcg capsule 8,000 unit PO DAILY@0900 03/14/19 05/31/23 History vitamin B complex (B 1 tab PO DAILY@0900 03/14/19 05/31/23 History Complex-Vitamin B12 tablet) albuterol sulfate 90 mcg/actuation 2 inh inhalation Q6H PRN Shortness 08/04/19 05/31/23 History breath activated powder inhaler Of Breath acetaminophen 325 mg tablet 325 - 650 mg PO QID PRN Pain 02/19/20 05/31/23 History (Tylenol) gabapentin 600 mg tablet 600 mg PO QID@09,13,17,02/19/20 05/31/23 History loratadine 10 mg tablet (Allergy 10 mg PO DAILY 11/11/20 05/31/23 History Relief (loratadine)) timolol 0.25 % eye drops 1 drp ophthalmic (eye) DAILY 01/12/22 05/31/23 History aflibercept 2 mg/0.05 mL See Rx Instructions .Route .COMPLEX 07/28/22 04/26/23 History intravitreal syringe (Eylea) atorvastatin 40 mg tablet 40 mg PO BEDTIME 07/28/22 05/31/23 History clopidogrel 75 mg tablet 75 mg PO DAILY 07/28/22 05/31/23 History lisinopril 2.5 mg tablet 2.5 mg PO DAILY 07/28/22 05/31/23 History metoprolol succinate 25 mg 12.5 mg PO DAILY 07/28/22 05/31/23 History tablet,extended release 24 hr nitroglycerin 0.4 mg sublingual 0.4 mg sublingual Q5M PRN Chest 07/28/22 05/31/23 History tablet Pain oxycodone 20 mg tablet 20 mg PO Q4-5H PRN Pain 07/28/22 05/31/23 History olopatadine 0.2 % eye drops 1 drp ophthalmic (eye) DAILY@0900 01/09/23 05/31/23 History Allergies/Adverse Reactions Allergy/AdvReac Type Severity Reaction Status Date / Time Iodinated Contrast Media Allergy Mild ALGY-Hives Verified 04/26/23 08:25 adhesive tape Allergy ALGY-Rash Verified 04/26/23 08:25 diphenhydramine Allergy ALGY-Hives Verified 04/26/23 08:25 [From Benadryl] hydrocodone Allergy ADR-Itching Verified 04/26/23 08:25 Penicillins Allergy ALGY-Rash Verified 04/26/23 08:25 povidone-iodine Allergy ALGY-Rash Verified 04/26/23 08:25 [From Betadine] sulfabenzamide Allergy ALGY-Hives Verified 04/26/23 08:25 tetanus toxoid, adsorbed Allergy ALGY-Rash Verified 04/26/23 08:25 zolpidem [From Ambien] Allergy Unknown Verified 04/26/23 08:25 Current Medications: Generic Name Dose Route Start Last Admin Trade Name Freq PRN Reason Stop Dose Admin Sodium Chloride 1,000 mls @ 30 mls/hr 05/31/23 08:30 05/31/23 09:32 Sodium Chloride 0.9% IV 06/01/23 08:29 30 mls/hr .Q24H RENUKA Administration Pertinent History/Comorbid Conditions* Medical History (Updated 03/06/23 @ 13:03 by Bobo Larsen DO) Chronic right shoulder pain Erectile dysfunction due to diseases classified elsewhere BPH NOS w ur obs/LUTS Hip replacement planned 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 Tonsillectomy planned Opioid contract exists Encounter for long-term use of opiate analgesic Chronic low back pain Chronic left shoulder pain Surgical History (Updated 10/02/19 @ 10:36 by Nirmal Malave MD) H/O eye surgery S/P partial colectomy S/P cervical spinal fusion History of knee replacement History of back surgery History of carpal tunnel surgery of left wrist Family History (Updated 07/25/19 @ 15:30 by Yudi Bradley LPN) Father, at age 96 Mother, at age 54 CAD (coronary artery disease) Lung disease Cancer Stroke Mother Social History Smoking and tobacco/nicotine status: never used tobacco/nicotine Second hand smoke exposure: No Alcohol intake: never Substance/Drug Use: never Marital status: Current occupational status: retired Pertinent Exam Findings alert, oriented x 3, operative site marked and procedure specific exam findings Patient has tenderness to palpation over the A1 pulleys of the thumb middle and ring finger with mechanical triggering and catching as well as tenderness over the wrist first dorsal compartment with positive Dominic's please refer to previous office note. Please refer to previous office note on 04/26/2023 for detailed orthopedic examination: Left hand examination demonstrates positive Tinel's and tenderness palpation ov er the first dorsal compartment with positive Dominic's, tenderness palpation over the A1 airam of the thumb middle and ring fingers with mechanical triggering most pronounced at the middle finger but triggering and decreased motion noted of the thumb and ring finger as well. Recommendations Surgery/Procedure today Other Plans: Plan proceed to the OR today for: left wrist de Quervain's release, left thumb middle and ring finger trigger releases Patient understands the risk benefits complication alternatives with surgery and through shared decision make elects proceed with surgical intervention. All questions answered at this time. Coding Level of Care Code Acute Code for Haily Canas
[2023-05-31] MEDS: clindamycin 900 MG/50 ML PREMIX 100 MG IV (11:32)
[2023-05-31] MEDS: ROPivacaine 0.5% SDV 30 mL 25 MG INJECTION (12:06)
[2023-05-31] MEDS: lidocaine 2% INJ 20 mL 10 ML INJECTION (12:07)
[2023-05-31] MEDS: BUPivacaine 0.5% INJ 10 mL INJECTION (12:07)
--- NOTE | 2023-05-31 12:43 | P.BOP_ITS ---
Date of Procedure: 05/31/2023 Surgeon: Bobo Larsen DO Template Layout Worker(s): None Procedure(s) performed: Left wrist de Quervain's release Left trigger thumb release Left middle finger trigger release Left ring finger trigger release Findings of the procedure(s): Patient underwent procedure as planned without issues or complications Estimated blood loss: 5 mL Specimen(s) removed: None Post-operative diagnosis: Left wrist de Quervain's disease, left thumb, middle, ring finger trigger
--- NOTE | 2023-05-31 12:44 | PM.OP ---
Operative Report Date of procedure: May 31, 2023 Surgeon: Bobo Larsen DO Procedure: Surgeon: Bobo Larsen DO Procedure: Preoperative diagnosis: Left wrist de Quervain's disease, Left thumb, ring, and middle finger triggers post-op diagnosis: Same Procedure done: Left wrist de Quervain's release Left trigger thumb release Left middle finger trigger release Left ring finger trigger release Surgeon: Bobo Larsen DO Estimated blood loss: 5 mL Tourniquet time: 25 minutes Anesthesia: MAC/local IV fluids: See anesthesia record Complications: None Findings: See operative report narrative Condition: stable Disposition: same day Brief History: Patient presents to the outpatient setting with findings consistent with a Left?thumb, ring, middle finger?trigger, Left wrist de Quervain's disease. Patient has been worked up in the outpatient setting and is failed conservative treatment approach.? Patient has tried treating conservatively with recurrence of ?triggering pain as well as de Quervain's disease.? Patient had procedure recently done on the right side of the exact same and this has done well and he like to continue and have surgical intervention for the left side. We talked about treatment options and ultimately patient would like to proceed with a surgical intervention. At this point time I feel this is most appropriate next best step in treatment option.? We talked about the risk benefits complications and alternatives with surgical nonsurgical treatment options.? Understanding risk of surgery patient agrees to proceed with a surgical intervention. All questions answered. Procedure: Patient was seen evaluated in the preoperative holding area.? Consent was reviewed and signed with patient.? Correct extremity was then marked.? Patient was then seen and evaluated by the anesthesia department once cleared for surgery patient was then taken back to the operative suite patient was placed in supine position and all bony prominences well-padded the patient was properly secured to the bed.? Armboard was applied to the Left upper extremity and the Left upper extremity was then placed with a nonsterile tourniquet to the Left upper arm.? This point time the Left upper extremity was then prepped and draped in standard orthopedic fashion.? A final timeout was performed.? Patient received appropriate preoperative antibiotics. Esmarch tourniquet was used exsanguinate the Left upper extremity and tourniquet was insufflated to 250 mmHg.? First I then proceeded with the Left wrist de Quervain's release.? I marked out the first dorsal compartment a small longitudinal incision was made directly over this.? Sharp scalpel incision was made through skin only switch to Littler dissection scissors and protected the superficial branch of the radial nerve as well as neurovascular structures.? I then had direct visualization of the first dorsal compartment sharp scalpel incision I used to then simply incise the first dorsal compartment I switched dissection scissors to release this both proximally and distally to its entirety the EPB tendon did have a subsheath which was subsequently released as well.? I then subsequently used a rag nail and mobilized each tendon that verify no areas of entrapment and this completed the Left wrist de Quervain's release. I then proceeded with the left trigger thumb release. I identified patient's MP flexion crease marked appropriate incision transversely across the flexion crease within Alexis's lines sharp scalpel incision was made only through skin.? Once this was done I switched to Littler dissection scissors this I then subsequently spread longitudinally in the planes of the digital nerves.? Once these were identified these were protected by my emergency veterinary assistant with Kasdan retractors.? Next I identified directly over the A1 airam of the Left?thumb.? This was significantly thickened and identified to be the area of patient's?thumb?triggering.? I used sharp scalpel to incise the A1 airam and then utilized my emergency veterinary assistant to retract the ability and under loupe magnification released the entirety of the A1 airam both proximally and distally up to the oblique airam.? This point time the tendon was then inspected and found to be healthy there was some inflammation around the tendon itself but no evidence of tearing and no need for any debridement.? The Ragnell was used to pull the tendon out of the incision and there was no mechanical?triggering I then took the patient's?thumb through range of motion no recurrent?triggering was noted.? ?Thorough irrigation was performed of the incision site and subsequently proceeded with the Left middle finger trigger release. Next a standard oblique incision was made centering over the A1 airam following patient's flexor crease of the Left middle finger.? Sharp scalpel incision was made only through skin and then switched to Littler dissection scissors and spread longitudinally directly over the flexor tendon sheath.? I then mobilized both radially and ulnarly and Kasdan retractors were used and placed by my emergency veterinary assistant to protect neurovascular bundle.? Next I visualized the A1 airam and this was incised with a scalpel.? I then switched to dissection scissors and released the A1 airam both proximally as well as distally to its entirety.? Significant tendon sheath fluid was noted consistent with inflammation.? Mild fraying of the flexor tendons noted but no tear.? At this point I utilized a rag nail and pulled the tendons FDS and FDP out of the incision and no?triggering was noted.? This point thorough irrigation was performed. Sponge was placed in this wound. Proceed with Left ring finger trigger release made a standard horizontal/oblique incision was made centering over the A1 airam following patient's flexor crease.? Sharp scalpel incision was made only through skin and then switched to Littler dissection scissors and spread longitudinally directly over the flexor tendon sheath.? I then mobilized both radially and ulnarly and Kasdan retractors were used and placed by my emergency veterinary assistant to protect neurovascular bundle.? Next I visualized the A1 airam and this was incised with a scalpel.? I then switched to dissection scissors and released the A1 airam both proximally as well as distally to its entirety.? Significant tendon sheath fluid was noted consistent with inflammation.? Mild fraying of the flexor tendons noted but no tear.? At this point I utilized a rag nail and pulled the tendons FDS and FDP out of the incision and no?triggering was noted.? Once again fingers were taken through range of motion utilizing a rag nail there is no mechanical triggering of the digits.? This point thorough irrigation was performed. I then let the tourniquet down identified and maintained exact hemostasis with bipolar electrocautery irrigated the wound bed and then closed the incision with interrupted nylon suture. Incision sites were then dressed with Xeroform 4 x 4's Kerlix William wrap and an Yaniv wrap.? Patient was then awakened from anesthesia and taken to PACU in stable condition. Disposition: Patient taken to PACU in stable condition recovering well.? Dressing on in place clean dry and intact.? Patient was receive appropriate discharge instruction as well as pain medication postoperatively.? Patient may be allowed weightbearing as tolerated to the Left hand and encourage range of motion once dressing come down after 72 hours.? Patient to follow-up with me in the office in 2 weeks.? Patient understands and agrees with current plan.? All questions answered.
--- NOTE | 2023-05-31 13:15 | ANE.PACU2 ---
Inpatient post-anesthesia follow up: Airway intact: Yes Vital signs: Temperature 97.1 F Pulse Rate 47 Respiratory Rate 18 Blood Pressure 153/60 Pulse Oximetry 96 Oxygen Delivery Me thod Room Air Oxygen Flow Rate Fraction of Inspir ed Oxygen Hydration adequate: Yes Nausea and vomiting: No Pain level: 1 Mental status: Baseline
== END 2023-05-31 14:45 | disposition home or self-care (01) ==
PROVIDERS: PCP Family Medicine; Visit Provider Student in an Organized Health Care Education/Training Program
PROC: (CPT 25000; principal; 2023-05-31 10:05)
PROC: (CPT 26055; 2023-05-31 10:05)
DX: M65.4 Radial styloid tenosynovitis [de Quervain] (principal); M65.312 Trigger thumb, left thumb; M65.342 Trigger finger, left ring finger; M65.332 Trigger finger, left middle finger; J44.9 Chronic obstructive pulmonary disease, unspecified; I25.10 Atherosclerotic heart disease of native coronary artery without angina pectoris; Z79.82 Long term (current) use of aspirin; N40.1 Benign prostatic hyperplasia with lower urinary tract symptoms; N13.8 Other obstructive and reflux uropathy
CPT/HCPCS: 25000; 26055 ×3; J0131; J1885; J2704; J2795; J3010; J3490; J7030

== ENCOUNTER 2023-06-06 06:00 | Outpatient (RCR) | payer MEDICARE, SELFPAY | END 2023-07-06 23:59 | disposition home or self-care (01) | LOC: SOT 06:00 | PROVIDERS: Visit Provider Student in an Organized Health Care Education/Training Program | DX: Z47.89 Encounter for other orthopedic aftercare (principal) | CPT/HCPCS: 97022; 97110; 97166; 97530 ==

== ENCOUNTER → 2023-06-15 10:40 | Outpatient (BNVA) | payer MEDICARE, SELFPAY | PROVIDERS: PCP Family Medicine; Visit Provider Physician Assistant | DX: Z98.890 Other specified postprocedural states (principal) | CPT/HCPCS: 99024 ==

== ENCOUNTER 2023-07-04 06:00 | Outpatient (RCR) | payer MEDICARE, SELFPAY | END 2023-07-06 23:59 | disposition home or self-care (01) | LOC: SOT 06:00 | PROVIDERS: Visit Provider Physician Assistant | DX: I73.9 Peripheral vascular disease, unspecified (principal); L60.8 Other nail disorders; L84 Corns and callosities; D64.9 Anemia, unspecified; L60.3 Nail dystrophy; Q66.71 Congenital pes cavus, right foot; Q66.72 Congenital pes cavus, left foot | CPT/HCPCS: 11056; 11721; 97022; 97110 ==

== ENCOUNTER 2023-07-07 06:00 | Outpatient (RCR) | payer MEDICARE, SELFPAY | END 2023-08-05 23:59 | disposition home or self-care (01) | LOC: SOT 06:00 | PROVIDERS: Visit Provider Physician Assistant | DX: Z47.89 Encounter for other orthopedic aftercare (principal) | CPT/HCPCS: 97022; 97110 ==

== ENCOUNTER → 2023-08-07 10:33 | Outpatient (BNVA) | payer MEDICARE, SELFPAY | PROVIDERS: Visit Provider Physician Assistant | DX: Z98.890 Other specified postprocedural states (principal) | CPT/HCPCS: 99024 ==

== ENCOUNTER → 2023-10-03 10:57 | Outpatient (BNVA) | payer MEDICARE, SELFPAY | PROVIDERS: PCP Family Medicine; Visit Provider Podiatrist Foot & Ankle Surgery | DX: L60.8 Other nail disorders (principal); D64.9 Anemia, unspecified; I73.9 Peripheral vascular disease, unspecified; L60.3 Nail dystrophy; L84 Corns and callosities; Q66.71 Congenital pes cavus, right foot; Q66.72 Congenital pes cavus, left foot | CPT/HCPCS: 11056; 11721 ==

== ENCOUNTER → 2023-12-31 11:00 | Outpatient (BNVA) | payer MEDICARE, SELFPAY | PROVIDERS: PCP Family Medicine; Visit Provider Podiatrist Foot & Ankle Surgery | DX: L60.8 Other nail disorders (principal); D64.9 Anemia, unspecified; I73.9 Peripheral vascular disease, unspecified; L60.3 Nail dystrophy; L84 Corns and callosities | CPT/HCPCS: 11056; 11721 ==

== ENCOUNTER → 2024-02-26 10:30 | Outpatient (BNVA) | payer MEDICARE, SELFPAY | PROVIDERS: PCP Family Medicine; Visit Provider Student in an Organized Health Care Education/Training Program | DX: Z98.890 Other specified postprocedural states (principal); M25.641 Stiffness of right hand, not elsewhere classified | CPT/HCPCS: 99213 ==

== ENCOUNTER 2024-02-29 09:37 | Outpatient (CLI) | payer MEDICARE, SELFPAY ==
--- NOTE | 2024-02-29 09:44 | CTR_ITS ---
PROCEDURE INFORMATION: Exam: CT Chest Without Contrast; Diagnostic Exam date and time: 02/29/2024 10:55 AM Age: 83 years old Clinical indication: Condition or disease; Other: Colon cancer; Prior surgery; Surgery date: 6+ months; Surgery type: Bowel resection x 2 , stomach, lumbar, cervical TECHNIQUE: Imaging protocol: Diagnostic computed tomography of the chest without contrast. Radiation optimization: All CT scans at this facility use at least one of these dose optimization techniques: automated exposure control; mA and/or kV adjustment per patient size (includes targeted exams where dose is matched to clinical indication); or iterative reconstruction. COMPARISON: CR XR chest 1V portable [id number] 01/09/2023 3:29 PM RADIATION DOSE METRICS: Total DLP (mGy-cm): 521.2 FINDINGS: Lungs: There is subsegmental atelectasis in the lung bases. There is no consolidation. Pleural spaces: There is no pleural effusion or pneumothorax. Heart: There is mild cardiac enlargement. There is no pericardial effusion. There is marked mitral annular calcification. Coronary arteries: There is moderate coronary artery calcification. Lymph nodes: There is no mediastinal or hilar lymphadenopathy. Vasculature: There is mild aortic atherosclerotic disease. Bones/joints: There is mild degenerative disease at both shoulders. Partially imaged anterior lower cervical fusion. Moderate upper and lower thoracic disc degeneration. No suspicious bone lesions. Soft tissues: The extrathoracic soft tissues are unremarkable. PROCEDURE INFORMATION: Exam: CT Abdomen And Pelvis Without Contrast Exam date and time: 02/29/2024 10:55 AM Age: 83 years old Clinical indication: Condition or disease; Other: Colon cancer; Prior surgery; Surgery date: 6+ months; Surgery type: Bowel resection x 2 , stomach, lumbar, cervical TECHNIQUE: Imaging protocol: Computed tomography of the abdomen and pelvis without contrast. Radiation optimization: All CT scans at this facility use at least one of these dose optimization techniques: automated exposure control; mA and/or kV adjustment per patient size (includes targeted exams where dose is matched to clinical indication); or iterative reconstruction. COMPARISON: CT abdomen pelvis wo con [id number] 02/19/2020 6:21 PM RADIATION DOSE METRICS: Total DLP (mGy-cm): 521.2 FINDINGS: Liver: The liver is normal. Gallbladder and biliary ducts: The gallbladder is normal. There is no biliary dilation. Pancreas: There is moderate atrophy of the pancreas. Spleen: The spleen is unremarkable. Adrenal glands: The adrenal glands are unremarkable. Kidneys and ureters: There are simple cysts in both kidneys. There is no hydronephrosis or stones. Stomach and bowel: The stomach is distended with contrast. The small bowel is nondilated. Unremarkable left upper quadrant ileocolic anastomosis. Right hemicolectomy. The remaining colon is mildly stool distended. There is no sign of colonic inflammation or obstruction. Appendix: The appendix is absent. Intraperitoneal space: There is no free air or significant intraperitoneal free fluid. Vasculature: There is a filter in the inferior vena cava positioned at and below the level of the renal veins. There is severe aortic atherosclerotic disease. Lymph nodes: There is no lymphadenopathy in the retroperitoneum, mesentery, pelvis or inguinal regions. Urinary bladder: The bladder is grossly unremarkable but partially obscured by beam hardening artifact. Reproductive: There is nonspecific mild enlargement of the prostate gland. Bones/joints: There is intact L2 through L5 posterolateral fusion. There is trace retrolisthesis of L1 on L2. No acute fracture. The bony pelvis is intact. The right hip is unremarkable. 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 There is marked thinning of the overlying posteromedial wall of the acetabulum and a 4.1 cm diameter cystic lesion inferior to the acetabular cup. There is a 4.2 cm cystic lesion in the greater trochanter with thinning of the overlying cortex. No acute fracture. There is a well-defined region of osteopenia involving the inferior half of L2 through superior half of L5 which could be related to the radiation therapy and is similar to the findings on the prior exam. There is moderate degenerative disease in the lower thoracic and upper lumbar spine. Soft tissues: The abdominal wall is intact. CT/[place] [id number] IMPRESSION: 1. No sign of metastases in the thorax. 2. Incidental findings above. IMPRESSION: 1. No sign of tumor recurrence or metastases in the abdomen or pelvis. 2. Incidental findings above. COMMENTS: 1. For patients with an IVC filter, recommend assessment for a management plan for the patient's IVC filter. If there is no established management plan, recommend referral to an interventional clinician on a nonemergent basis for evaluation. 2. Consistent with the [employer]'s Incidental Findings Committee white paper (J Am Ricky Radiol 2018): Any incidental renal lesion less than 1 cm or classified as too small to characterize, or any incidental cystic renal lesion characterized as simple-appearing, is likely benign. No follow-up imaging is recommended for these lesions per consensus recommendations based on imaging criteria.
== END 2024-02-29 09:38 | disposition home or self-care (01) ==
LOC: RAD 09:40
PROVIDERS: Visit Provider Internal Medicine
DX: C18.9 Malignant neoplasm of colon, unspecified (principal); Z98.890 Other specified postprocedural states; J98.11 Atelectasis; I51.7 Cardiomegaly; I34.81 Nonrheumatic mitral (valve) annulus calcification; I70.0 Atherosclerosis of aorta; R93.6 Abnormal findings on diagnostic imaging of limbs; Z98.1 Arthrodesis status; M51.34 Other intervertebral disc degeneration, thoracic region; K86.89 Other specified diseases of pancreas; N28.1 Cyst of kidney, acquired; N40.0 Benign prostatic hyperplasia without lower urinary tract symptoms; Z96.89 Presence of other specified functional implants; Z96.642 Presence of left artificial hip joint; R93.7 Abnormal findings on diagnostic imaging of other parts of musculoskeletal system; M85.88 Other specified disorders of bone density and structure, other site; G31.89 Other specified degenerative diseases of nervous system
CPT/HCPCS: 71250; 74176

== ENCOUNTER 2024-03-04 15:40 | Outpatient (RCR) | payer MEDICARE, SELFPAY | END 2024-03-07 23:59 | disposition home or self-care (01) | LOC: SOT 15:40 | PROVIDERS: Visit Provider Student in an Organized Health Care Education/Training Program | DX: M25.641 Stiffness of right hand, not elsewhere classified (principal); I73.9 Peripheral vascular disease, unspecified; L60.8 Other nail disorders; L84 Corns and callosities; D64.9 Anemia, unspecified; L60.3 Nail dystrophy | CPT/HCPCS: 11056; 11721; 97110; 97165 ==

== ENCOUNTER 2024-03-05 11:58 | Oncology outpatient (recurring) (ONCR) | payer MEDICARE, SELFPAY ==
[2024-02-14 16:15] LABS: Basophils % 0.8 %; Eosinophils # 0.2 10^3/uL (0.0-0.8); Eosinophils % 4.7 %; Hematocrit 36.3 % (37-53); Lymphocytes % 20.5 %; Mean Corpuscular HGB Conc 30.3 g/dL (30-55); Mean Corpuscular Hemoglobin 29.3 pg (27-33); Mean Corpuscular Volume 96.5 fl (82-101); Mean Platelet Volume 9.2 fL (7.4-10.4); Monocytes # 0.4 10^3/uL (0.2-0.9); Monocytes % 8.7 %; Neutrophils % 65.1 %; Nucleated Red Blood Cells % 0 %; Platelet Count 212 10^3/cmm (157-399); Red Blood Count 3.76 10^6/uL (3.85-5.65); Red Cell Distribution Width 15.2 % (12.1-15.1); White Blood Count 4.92 10^3/uL (3.29-11.43)
[2024-02-14 16:46] LABS: Carcinoembryonic Antigen 1.4 ng/mL (0.0-4.7)
[2024-02-14 17:00] LABS: Alanine Aminotransferase 17 U/L (0-41); Albumin Level 3.9 g/dL (3.5-5.2); Alkaline Phosphatase 96 U/L (40-130); Anion Gap 15.7 (5-19); Aspartate Amino Transferase 19 U/L (0-40); Blood Urea Nitrogen 20 mg/dL (8-23); Carbon Dioxide 26 mmol/L (22-29); Chloride 108 mmol/L (98-107); Creatinine Clr Calc Pharmacy 55.8956; Globulin 2.8 g/dL (1.3-4.6); Glucose 116 mg/dL (65-115); Immunoglobulin IGA 352 mg/dL (70-400); Immunoglobulin IGG 861 mg/dL (700-1600); Immunoglobulin IGM 104 mg/dL (40-230); Lactate Dehydrogenase 181 U/L (135-225); Osmolality Calculated 304 mOsm/kg (285-295); Phosphorus 4.1 mg/dL (2.5-4.5); Potassium 4.7 mmol/L (3.5-5.1); Sodium 145 mmol/L (136-145); Total Bilirubin 0.2 mg/dL (0.15-1.2); Total Protein 6.7 g/dL (6.6-8.7); Uric Acid 4.3 mg/dL (3.4-7.0)
[2024-02-14 18:04] LABS: Ferritin 84 ng/mL (30-400); Iron 59 ug/dL (59-158); Percent Saturation 20.4 % (20-50); Total Iron Binding Capacity 289 mcg/dl; Unsaturated Iron Binding 230 ug/dL (112-347)
[2024-02-14 18:19] LABS: Vitamin B12 516 pg/mL (232-1245)
[2024-02-14 18:58] LABS: Folate Level > 20.0 ng/mL (4.5-32.2)
[2024-02-16 02:40] LABS: PROTEIN, TOTAL 6.6 g/dL (6.1-8.1)
[2024-02-16 03:49] LABS: Beta-2-Microglobulin 3.04 mg/L (< OR = 2.51)
[2024-02-18 10:50] LABS: ALBUMIN 3.7 g/dL (3.8-4.8); ALPHA 1 GLOBULIN 0.4 g/dL (0.2-0.3); ALPHA 2 GLOBULIN 0.9 g/dL (0.5-0.9); BETA 1 GLOBULIN 0.5 g/dL (0.4-0.6); BETA 2 GLOBULIN 0.4 g/dL (0.2-0.5); GAMMA GLOBULIN 0.9 g/dL (0.8-1.7)
[2024-02-25 12:29] LABS: Immunofixation Serum Normal pattern.
== END 2024-03-07 23:59 | disposition home or self-care (01) ==
PROVIDERS: PCP Family Medicine; Visit Provider Internal Medicine
DX: Z87.891 Personal history of nicotine dependence; Z08 Encounter for follow-up examination after completed treatment for malignant neoplasm; Z85.038 Personal history of other malignant neoplasm of large intestine; Z90.49 Acquired absence of other specified parts of digestive tract; Z92.21 Personal history of antineoplastic chemotherapy; Z92.3 Personal history of irradiation; K50.90 Crohn's disease, unspecified, without complications; D64.9 Anemia, unspecified; M54.50 Low back pain, unspecified; G89.29 Other chronic pain; M54.2 Cervicalgia; I25.10 Atherosclerotic heart disease of native coronary artery without angina pectoris; I73.9 Peripheral vascular disease, unspecified; E03.9 Hypothyroidism, unspecified; G40.909 Epilepsy, unspecified, not intractable, without status epilepticus; M81.0 Age-related osteoporosis without current pathological fracture; G62.9 Polyneuropathy, unspecified; G47.00 Insomnia, unspecified; Z98.890 Other specified postprocedural states
CPT/HCPCS: 36415; 80053; 82232; 82378; 82607; 82728; 82746; 82784; 83010; 83540; 83550; 83615; 84100; 84155; 84165; 84550; 85025; 85045; 86334; 99205; 99213

== ENCOUNTER 2024-03-08 06:00 | Outpatient (RCR) | payer MEDICARE, SELFPAY | END 2024-04-04 23:59 | disposition home or self-care (01) | LOC: SOT 06:00 | PROVIDERS: PCP Family Medicine; Visit Provider Student in an Organized Health Care Education/Training Program | DX: M25.641 Stiffness of right hand, not elsewhere classified (principal) | CPT/HCPCS: 97022; 97110; 97140 ==

== ENCOUNTER → 2024-03-14 10:01 | Outpatient (BNVA) | payer MEDICARE, SELFPAY | PROVIDERS: PCP Family Medicine; Visit Provider Internal Medicine Cardiovascular Disease | DX: I35.0 Nonrheumatic aortic (valve) stenosis (principal); I25.10 Atherosclerotic heart disease of native coronary artery without angina pectoris; G47.33 Obstructive sleep apnea (adult) (pediatric) | CPT/HCPCS: 99214 ==

== ENCOUNTER 2024-05-28 10:11 | Oncology outpatient (recurring) (ONCR) | payer MEDICARE, SELFPAY ==
[2024-05-28 10:46] LABS: Basophils % 0.7 %; Eosinophils # 0.3 10^3/uL (0.0-0.8); Eosinophils % 6.4 %; Hematocrit 37.2 % (37-53); Lymphocytes # 1.1 10^3/uL (0.8-4.8); Lymphocytes % 24.6 %; Mean Corpuscular HGB Conc 30.9 g/dL (30-55); Mean Corpuscular Hemoglobin 29.7 pg (27-33); Mean Corpuscular Volume 96.1 fl (82-101); Mean Platelet Volume 9.8 fL (7.4-10.4); Monocytes # 0.4 10^3/uL (0.2-0.9); Monocytes % 7.8 %; Neutrophils # 2.71 10^3/uL (1.8-7.7); Neutrophils % 60.1 %; Nucleated Red Blood Cells % 0 %; Platelet Count 153 10^3/cmm (157-399); Red Blood Count 3.87 10^6/uL (3.85-5.65); Red Cell Distribution Width 15.5 % (12.1-15.1); White Blood Count 4.51 10^3/uL (3.29-11.43)
[2024-05-28 11:08] LABS: Carcinoembryonic Antigen 1.7 ng/mL (0.0-4.7)
[2024-05-28 11:19] LABS: Alanine Aminotransferase 12 U/L (0-41); Albumin Level 3.9 g/dL (3.5-5.2); Alkaline Phosphatase 74 U/L (40-130); Anion Gap 11.8 (5-19); Aspartate Amino Transferase 15 U/L (0-40); Blood Urea Nitrogen 20 mg/dL (8-23); Calcium 8.5 mg/dL (8.5-10.5); Carbon Dioxide 26 mmol/L (22-29); Chloride 111 mmol/L (98-107); Globulin 2.6 g/dL (1.3-4.6); Glucose 122 mg/dL (65-115); Osmolality Calculated 304 mOsm/kg (285-295); Potassium 3.8 mmol/L (3.5-5.1); Sodium 145 mmol/L (136-145); Total Bilirubin 0.5 mg/dL (0.15-1.2); Total Protein 6.5 g/dL (6.6-8.7)
== END 2024-06-04 23:59 | disposition home or self-care (01) ==
PROVIDERS: PCP Family Medicine; Visit Provider Internal Medicine
DX: Z08 Encounter for follow-up examination after completed treatment for malignant neoplasm (principal); Z85.038 Personal history of other malignant neoplasm of large intestine; D64.9 Anemia, unspecified; M54.50 Low back pain, unspecified; G89.29 Other chronic pain; M54.2 Cervicalgia; Z90.49 Acquired absence of other specified parts of digestive tract; K50.90 Crohn's disease, unspecified, without complications; I25.10 Atherosclerotic heart disease of native coronary artery without angina pectoris; I73.9 Peripheral vascular disease, unspecified; E03.9 Hypothyroidism, unspecified; K21.9 Gastro-esophageal reflux disease without esophagitis; G47.00 Insomnia, unspecified
CPT/HCPCS: 36415; 80053; 82378; 85025; 99214

== ENCOUNTER → 2024-06-03 13:10 | Outpatient (BNVA) | payer MEDICARE, SELFPAY | PROVIDERS: PCP Family Medicine; Visit Provider Podiatrist Foot & Ankle Surgery | DX: D64.9 Anemia, unspecified (principal); I73.9 Peripheral vascular disease, unspecified; L60.3 Nail dystrophy; L84 Corns and callosities | CPT/HCPCS: 11056; 11721 ==

== ENCOUNTER 2024-08-27 13:02 | Oncology outpatient (recurring) (ONCR) | payer MEDICARE, SELFPAY ==
[2024-08-27 13:53] LABS: Hematocrit 36.3 % (37-53); Hemoglobin 11.20 g/dL (11.27-16.99); Mean Corpuscular HGB Conc 30.9 g/dL (30-55); Mean Corpuscular Hemoglobin 30.3 pg (27-33); Mean Corpuscular Volume 98.1 fl (82-101); Nucleated Red Blood Cells % 0 %; Platelet Count 247 10^3/cmm (157-399); Red Blood Count 3.70 10^6/uL (3.85-5.65); White Blood Count 6.58 10^3/uL (3.29-11.43)
[2024-08-27 14:35] LABS: Carcinoembryonic Antigen 1.8 ng/mL (0.0-4.7)
[2024-08-27 14:46] LABS: Alanine Aminotransferase 16 U/L (0-41); Albumin Level 3.7 g/dL (3.5-5.2); Alkaline Phosphatase 114 U/L (40-130); Anion Gap 18.6 (5-19); Aspartate Amino Transferase 16 U/L (0-40); Blood Urea Nitrogen 28 mg/dL (8-23); Calcium 9.4 mg/dL (8.5-10.5); Carbon Dioxide 24 mmol/L (22-29); Chloride 107 mmol/L (98-107); Creatinine Clr Calc Pharmacy 53.8963; Globulin 2.9 g/dL (1.3-4.6); Glucose 114 mg/dL (65-115); Osmolality Calculated 306 mOsm/kg (285-295); Potassium 4.6 mmol/L (3.5-5.1); Sodium 145 mmol/L (136-145); Total Protein 6.6 g/dL (6.6-8.7)
== END 2024-09-04 23:59 | disposition home or self-care (01) ==
PROVIDERS: PCP Family Medicine; Visit Provider Internal Medicine
DX: Z08 Encounter for follow-up examination after completed treatment for malignant neoplasm (principal); Z85.038 Personal history of other malignant neoplasm of large intestine; Z87.891 Personal history of nicotine dependence; Z90.49 Acquired absence of other specified parts of digestive tract; D64.9 Anemia, unspecified; I25.10 Atherosclerotic heart disease of native coronary artery without angina pectoris; Z95.0 Presence of cardiac pacemaker
CPT/HCPCS: 36415; 80053; 82378; 85025; 99213

== ENCOUNTER → 2024-09-02 10:10 | Outpatient (BNVA) | payer MEDICARE, SELFPAY | PROVIDERS: PCP Family Medicine; Visit Provider Podiatrist Foot & Ankle Surgery | DX: E11.8 Type 2 diabetes mellitus with unspecified complications (principal); L60.3 Nail dystrophy; L84 Corns and callosities; D64.9 Anemia, unspecified; I73.9 Peripheral vascular disease, unspecified | CPT/HCPCS: 11056; 11721 ==

== ENCOUNTER → 2024-11-12 09:48 | Outpatient (BNVA) | payer MEDICARE, SELFPAY | PROVIDERS: PCP Family Medicine; Visit Provider Nurse Practitioner Family | DX: L40.0 Psoriasis vulgaris (principal); L57.8 Other skin changes due to chronic exposure to nonionizing radiation; L81.4 Other melanin hyperpigmentation; L82.1 Other seborrheic keratosis; D22.5 Melanocytic nevi of trunk; L57.0 Actinic keratosis | CPT/HCPCS: 17000; 99204 ==

== ENCOUNTER 2024-11-26 12:55 | Oncology outpatient (recurring) (ONCR) | payer MEDICARE, SELFPAY ==
[2024-11-26 13:40] LABS: Hematocrit 38.0 % (37-53); Hemoglobin 11.90 g/dL (11.27-16.99); Mean Corpuscular HGB Conc 31.3 g/dL (30-55); Mean Corpuscular Hemoglobin 29.8 pg (27-33); Mean Corpuscular Volume 95.0 fl (82-101); Nucleated Red Blood Cells % 0 %; Platelet Count 151 10^3/cmm (157-399); Red Blood Count 4.00 10^6/uL (3.85-5.65); White Blood Count 5.50 10^3/uL (3.29-11.43)
[2024-11-26 13:59] LABS: Alanine Aminotransferase 16 U/L (0-41); Albumin Level 3.9 g/dL (3.5-5.2); Alkaline Phosphatase 96 U/L (40-130); Anion Gap 14.6 (5-19); Aspartate Amino Transferase 19 U/L (0-40); Blood Urea Nitrogen 18 mg/dL (8-23); Calcium 8.6 mg/dL (8.5-10.5); Carbon Dioxide 27 mmol/L (22-29); Chloride 106 mmol/L (98-107); Creatinine Clr Calc Pharmacy 61.9002; Ferritin 125 ng/mL (30-400); Globulin 2.6 g/dL (1.3-4.6); Glucose 118 mg/dL (65-115); Iron 44 ug/dL (59-158); Osmolality Calculated 299 mOsm/kg (285-295); Potassium 4.6 mmol/L (3.5-5.1); Sodium 143 mmol/L (136-145); Total Iron Binding Capacity 242 mcg/dl; Total Protein 6.5 g/dL (6.6-8.7); Unsaturated Iron Binding 198 ug/dL (112-347)
[2024-11-26 14:20] LABS: Carcinoembryonic Antigen 1.7 ng/mL (0.0-4.7)
== END 2024-12-05 23:59 | disposition home or self-care (01) ==
PROVIDERS: Nurse Practitioner; PCP Family Medicine; Visit Provider Internal Medicine
DX: Z08 Encounter for follow-up examination after completed treatment for malignant neoplasm (principal); Z85.038 Personal history of other malignant neoplasm of large intestine; Z87.891 Personal history of nicotine dependence; D64.9 Anemia, unspecified; I25.10 Atherosclerotic heart disease of native coronary artery without angina pectoris; Z95.0 Presence of cardiac pacemaker; M54.2 Cervicalgia; R03.0 Elevated blood-pressure reading, without diagnosis of hypertension; G89.29 Other chronic pain; Z98.890 Other specified postprocedural states
CPT/HCPCS: 36415; 80053; 82378; 82728; 83540; 83550; 83615; 85025; 99213

== ENCOUNTER → 2024-12-02 14:08 | Outpatient (BNVA) | payer MEDICARE, SELFPAY | PROVIDERS: PCP Family Medicine; Visit Provider Podiatrist Foot & Ankle Surgery | DX: E11.8 Type 2 diabetes mellitus with unspecified complications (principal); L60.3 Nail dystrophy; L84 Corns and callosities; D64.9 Anemia, unspecified; I73.9 Peripheral vascular disease, unspecified | CPT/HCPCS: 11056; 11721; 17110 ==